=== PATIENT | female | born 1955 | race Caucasian/White ===

== ENCOUNTER → 2016-06-03 | Outpatient (CLI) | payer MEDICARE ==
--- NOTE | 2016-06-03 17:27 | REP ---
Chest x-ray: Two views. History: Cough. Comparison chest x-ray September 28, 2011. Findings: The lungs are symmetrically aerated and clear. Pleural angles are sharp. Heart is not enlarged. The aorta is somewhat tortuous. Pulmonary vasculature is not increased. Impression: No active disease. Signed by Khris Osborn MD 06/03/2016 05:35 P
== END ==
LOC: M WUC 15:34
PROVIDERS: ATTEND Family Medicine
DX: R05 Cough (principal)

== ENCOUNTER → 2016-07-18 | Outpatient (CLI) | payer MEDICARE | LOC: M CARPUL 13:50 | PROVIDERS: ATTEND Nurse Practitioner Family | DX: R05 Cough (principal) ==

== ENCOUNTER → 2016-08-11 | Outpatient (CLI) | payer MEDICARE | LOC: M EKG 09:26 | PROVIDERS: ATTEND Nurse Practitioner Family | DX: R03.0 Elevated blood-pressure reading, without diagnosis of hypertension (principal) ==

== ENCOUNTER 2016-11-14 14:55 | Emergency (ER) | payer MEDICARE ==
[~2016-11-14] VITALS: Ht 157.5 cm; Wt 78.7 kg
[2016-11-14] MEDS ORDERED: MELO7.5T7 (15:06)
[2016-11-14] MEDS ORDERED: APAP/CODEINE (15:06)
[2016-11-14] MEDS ORDERED: CHLO125TA (15:06)
[2016-11-14] MEDS ORDERED: PARO20TA3 (15:06)
[2016-11-14] MEDS ORDERED: OMEP40CA2 (15:06)
[2016-11-14] MEDS ORDERED: CYCL10TA (15:06)
[2016-11-14] MEDS: NITROGLYCERIN 0.4 MG SUBL TABLET SL PRN ×2 (15:13→15:18)
[2016-11-14] MEDS ORDERED: TENECTEPLASE 50 MG KIT (TNKase)(J3101) IV ONE (15:15)
[2016-11-14] MEDS ORDERED: ONDANSETRON 4MG/2ML VIAL (J2405) IV ONE (15:15)
[2016-11-14] MEDS ORDERED: fentaNYL 100 MCG/2 ML INJECTION (J3010) IV PRN (15:15)
[2016-11-14] MEDS ORDERED: ASPIRIN 81 MG CHEW TABLET PO ONE ×2 (15:15)
[2016-11-14] MEDS ORDERED: HEPARIN SOD (PORCINE) 5000 UNITS/ML VIAL IV ONE (15:15)
[2016-11-14] MEDS ORDERED: NS 500 ML IV ONE (15:15)
[2016-11-14 15:18] VITALS: BP 146/99
[2016-11-14 15:31] LABS: BASO % 0.4 % (0.0-1.0); EOS # 0.1 K/mm3 (0.0-0.50); EOS % 0.8 % (0.0-3.0); LARGE UNSTAINED CELL # 0.1 K/mm3 (0.0-0.4); LARGE UNSTAINED CELL % 0.7 % (0.0-4.0); LYMPH # 2.3 K/mm3 (1.5-4.5); LYMPH % 16.5 % (24.0-44.0); MEAN CORPUSCULAR HGB CONC 34.9 g/dl (32.0-36.5); MEAN CORPUSCULAR VOLUME 88.8 fl (80.0-96.0); MONO # 0.4 K/mm3 (0.0-0.8); MONO % 3.2 % (0.0-5.0); NEUTROPHILS # 10.5 K/mm3 (1.8-7.7); NEUTROPHILS % 78.4 % (36.0-66.0); PLATELET COUNT, AUTOMATED 466 k/mm3 (150-450); RED CELL DISTRIBUTION WIDTH 13.5 % (11.5-14.5); WHITE BLOOD COUNT 13.3 K/mm3 (4.0-10.0)
[2016-11-14] MEDS ORDERED: NITROGLYCERIN IN D5W 25MG/250ML (100MCG/ML) As Ordered ONE (15:32)
[2016-11-14] MEDS ORDERED: NITROGLYCERIN/D5W 100MCG/ML 25 MG in APPROPRIATE DILUENT 1 EA IV SCH (15:32)
[2016-11-14 15:45] LABS: INR 0.92
--- NOTE | 2016-11-14 15:46 | REP ---
Portable chest, single AP view, patient sitting: Comparison 06/03/2016. The lung hernandez are clear. The cardiac size is normal. The emelyn, mediastinum, and bony thorax are unremarkable. Impression: Negative portable chest. Signed by Franklin Fuller MD 11/14/2016 03:37 P
[2016-11-14 15:47] LABS: ALBUMIN 3.7 GM/DL (3.2-5.2); ALKALINE PHOSPHATASE 137 U/L (45-117); ALT/SGPT 20 U/L (12-78); ANION GAP 6 MEQ/L (8-16); AST/SGOT 12 U/L (15-37); BILIRUBIN,DIRECT 0.1 MG/DL (0.0-0.2); BILIRUBIN,TOTAL 0.4 MG/DL (0.2-1.0); BLOOD UREA NITROGEN 22 MG/DL (7-18); CARBON DIOXIDE LEVEL 30 MEQ/L (21-32); CHLORIDE LEVEL 101 MEQ/L (98-107); CREATININE FOR GFR 0.83 MG/DL (0.55-1.02); FREE T4 1.34 NG/DL (0.76-1.46); GLOMERULAR FILTRATION RATE > 60.0 (>45); GLUCOSE, FASTING 129 MG/DL (80-110); POTASSIUM SERUM 3.3 MEQ/L (3.5-5.1); SODIUM LEVEL 137 MEQ/L (136-145); TOTAL PROTEIN 7.8 GM/DL (6.4-8.2)
[2016-11-14] MEDS ORDERED: fentaNYL 100 MCG/2 ML INJECTION (J3010) IV ONE ×4 (15:50→16:00)
[2016-11-14 15:56] VITALS: BP 135/85
[2016-11-14] MEDS ORDERED: HEPARIN DRIP 25,000 UNITS in APPROPRIATE DILUENT 1 EA IV SCH (16:00)
[2016-11-14] MEDS ORDERED: CLOPIDOGREL 300 MG TAB (PLAVIX) PO STA (16:11)
--- NOTE | 2016-11-14 18:00 | ECGEPIP ---
Stationary ECG Study [facility] - ED Test Date: 2016-11-14 Pat Name: DAISY ANTONIO Department: Room: - Gender: F Switch Technician: balaji : 1955 Requested By: ANDREW Sanabria Order Number: [id number] Reading MD: Leyda Martinez Measurements Intervals [place] Rate: 89 P: 63 W[place]: 148 QRS: -21 QRSD: 86 T: 57 QT: 371 QTc: 453 Interpretive Statements SINUS RHYTHM BORDERLINE LEFT AXIS DEVIATION ST DEPRESSION IN v1-3 - ACUTE POSTERIOR INFARCTION CLINICAL CORRELATION ADVISED NO OLD ECG FOR COMPARISON Electronically Signed On 11-14-2016 18:00:01 EDT by Leyda Martinez
== END 2016-11-14 16:11 | disposition short-term general hospital (02) ==
LOC: M ED 16:06
DX: I21.3 ST elevation (STEMI) myocardial infarction of unspecified site (principal); I10 Essential (primary) hypertension; M19.90 Unspecified osteoarthritis, unspecified site; F17.200 Nicotine dependence, unspecified, uncomplicated; Z82.49 Family history of ischemic heart disease and other diseases of the circulatory system; Z79.899 Other long term (current) drug therapy
CPT/HCPCS: 71010; 80048; 80076; 82550; 82553; 83880; 84439; 84443; 84484; 85025; 85610; 85730; 93005; 93041; 94760; 96374; 96375; 96376; 99285; J2405; J3010; J3101

== ENCOUNTER 2016-11-21 11:33 | Emergency (ER) | payer MEDICARE ==
[~2016-11-21] VITALS: Ht 157.5 cm; Wt 78.2 kg
[~2016-11-21 11:33] MED LIST: APAP/CODEINE; CHLO125TA; CYCL10TA; MELO7.5T7; OMEP40CA2; PARO20TA3
[2016-11-21] MEDS ORDERED: METO-346 (11:46)
[2016-11-21] MEDS ORDERED: ATOR40TA75 (11:46)
[2016-11-21] MEDS ORDERED: ASPI81CH (11:46)
[2016-11-21] MEDS ORDERED: PLAV1TAB2 PO (11:46)
[2016-11-21] MEDS ORDERED: NITR0.4S14 (11:46)
[2016-11-21] MEDS ORDERED: LISI2.5T3 (11:46)
[2016-11-21] MEDS ORDERED: MORPHINE 2 MG/ML 1ML SYRINGE IV ONE (12:45)
[2016-11-21] MEDS ORDERED: ONDANSETRON 4MG/2ML VIAL (J2405) IV ONE (12:45)
--- NOTE | 2016-11-21 13:22 | REP ---
CT brain without contrast: History: Headache. On anticoagulation. Recent cardiac catheterization. Comparison study: November 10, 2014. CT findings: Digital lateral head doffer radiograph is unremarkable. No bony calvarial abnormality is appreciated. The visualized paranasal sinuses are clear. Soft tissue window settings demonstrate a triangular hyperdensity consistent with an acute parenchymal hemorrhage 2.6 cm in greatest diameter in the left periventricular white matter of the frontoparietal region. There is some mild surrounding edema. The findings are compatible with small hemorrhagic infarct versus hypertensive hemorrhage. It is a new finding when compared with the prior CT study of November 10, 2014. There is a small zone of intraventricular hemorrhage within the occipital horn of the left lateral ventricle. The lateral ventricles are a little more prominent than they were in October of 2014. Exam is otherwise unremarkable. Impression: Acute parenchymal hemorrhage periventricular white matter left frontal parietal lobe with a small quantity of intraventricular hemorrhage and mild lateral ventricle dilation. Hemorrhagic infarct versus hypertensive hemorrhage. Findings were discussed verbally by telephone with the referring provider Dr. Shabazz, at the time of the study. Signed by Khris Osborn MD 11/21/2016 04:16 P
[2016-11-21 13:23] LABS: BASO % 0.2 % (0.0-1.0); EOS # 0.1 K/mm3 (0.0-0.50); EOS % 0.9 % (0.0-3.0); LARGE UNSTAINED CELL # 0.1 K/mm3 (0.0-0.4); LARGE UNSTAINED CELL % 0.5 % (0.0-4.0); LYMPH # 1.3 K/mm3 (1.5-4.5); MEAN CORPUSCULAR HEMOGLOBIN 29.9 pg (27.0-33.0); MEAN CORPUSCULAR VOLUME 90.7 fl (80.0-96.0); MONO # 0.3 K/mm3 (0.0-0.8); MONO % 2.1 % (0.0-5.0); NEUTROPHILS # 13.3 K/mm3 (1.8-7.7); NEUTROPHILS % 88.4 % (36.0-66.0); PLATELET COUNT, AUTOMATED 502 k/mm3 (150-450); RED CELL DISTRIBUTION WIDTH 13.7 % (11.5-14.5); WHITE BLOOD COUNT 15.1 K/mm3 (4.0-10.0)
[2016-11-21 13:27] LABS: INR 0.91
[2016-11-21 13:44] LABS: ALBUMIN 3.2 GM/DL (3.2-5.2); ALBUMIN/GLOBULIN RATIO 0.71 (1.00-1.93); ALKALINE PHOSPHATASE 127 U/L (45-117); ALT/SGPT 23 U/L (12-78); ANION GAP 6 MEQ/L (8-16); AST/SGOT 11 U/L (15-37); BILIRUBIN,DIRECT 0.1 MG/DL (0.0-0.2); BILIRUBIN,TOTAL 0.5 MG/DL (0.2-1.0); BLOOD UREA NITROGEN 18 MG/DL (7-18); CALCIUM LEVEL 8.9 MG/DL (8.8-10.2); CARBON DIOXIDE LEVEL 26 MEQ/L (21-32); CHLORIDE LEVEL 107 MEQ/L (98-107); CREATININE FOR GFR 0.61 MG/DL (0.55-1.02); GLOMERULAR FILTRATION RATE > 60.0 (>45); GLUCOSE, FASTING 123 MG/DL (80-110); POTASSIUM SERUM 3.7 MEQ/L (3.5-5.1); SODIUM LEVEL 139 MEQ/L (136-145); TOTAL PROTEIN 7.7 GM/DL (6.4-8.2)
[2016-11-21 13:50] VITALS: BP 158/83
[2016-11-21] MEDS ORDERED: NS 1,000 ML IV SCH (14:00)
== END 2016-11-21 13:56 | disposition short-term general hospital (02) ==
LOC: M ED 12:41
DX: I62.9 Nontraumatic intracranial hemorrhage, unspecified (principal); Z79.02 Long term (current) use of antithrombotics/antiplatelets; I25.10 Atherosclerotic heart disease of native coronary artery without angina pectoris; I25.2 Old myocardial infarction; I10 Essential (primary) hypertension; E78.5 Hyperlipidemia, unspecified; Z98.61 Coronary angioplasty status; Z79.82 Long term (current) use of aspirin; Z79.899 Other long term (current) drug therapy
CPT/HCPCS: 70450; 80048; 80076; 82550; 83690; 85025; 85610; 85730; 96374; 96375; 99284; J2405

== ENCOUNTER → 2017-07-30 | Outpatient (CLI) | payer MEDICARE ==
[2017-07-30 14:03] LABS: BASO # 0.1 10^3/uL (0.0-0.2); BASO % 0.5 % (0.0-1.0); EOS # 0.2 10^3/uL (0.0-0.50); EOS % 1.4 % (0.0-3.0); HEMATOCRIT 48.3 % (36.0-47.0); HEMOGLOBIN 15.8 g/dl (12.0-16.0); IMMATURE GRANULOCYTE % 0.4 % (0-3.0); LYMPH # 2.8 10^3/uL (1.5-4.5); LYMPH % 25.2 % (24.0-44.0); MEAN CORPUSCULAR HEMOGLOBIN 29.6 pg (27.0-33.0); MEAN CORPUSCULAR HGB CONC 32.7 g/dl (32.0-36.5); MEAN CORPUSCULAR VOLUME 90.4 fl (80.0-96.0); MONO # 0.5 10^3/uL (0.0-0.8); MONO % 4.5 % (0.0-5.0); NEUTROPHILS # 7.5 10^3/uL (1.8-7.7); PLATELET COUNT, AUTOMATED 537 10^3/uL (150-450); RED BLOOD COUNT 5.34 10^6/uL (4.00-5.40); RED CELL DISTRIBUTION WIDTH 13.6 % (11.5-14.5); WHITE BLOOD COUNT 11.1 10^3/uL (4.0-10.0)
[2017-07-30 14:25] LABS: ALBUMIN 3.6 GM/DL (3.2-5.2); ALBUMIN/GLOBULIN RATIO 1.06 (1.00-1.93); ALKALINE PHOSPHATASE 135 U/L (45-117); ALT/SGPT 16 U/L (12-78); ANION GAP 6 MEQ/L (8-16); AST/SGOT 9 U/L (7-37); BILIRUBIN,TOTAL 0.4 MG/DL (0.2-1.0); BLOOD UREA NITROGEN 14 MG/DL (7-18); CALCIUM LEVEL 8.8 MG/DL (8.8-10.2); CARBON DIOXIDE LEVEL 27 MEQ/L (21-32); CHLORIDE LEVEL 110 MEQ/L (98-107); CHOLESTEROL LEVEL 156 MG/DL (<200); CHOLESTEROL RISK RATIO 2.836 (<5); CREATININE FOR GFR 0.71 MG/DL (0.55-1.30); FREE THYROXINE INDEX 3.5 % (1.3-4.8); GLOMERULAR FILTRATION RATE > 60.0 (>45); GLUCOSE, FASTING 108 MG/DL (70-100); HDL CHOLESTEROL 55 MG/DL (>40); LDL CHOLESTEROL 86.4 MG/DL (<100); NON-HDL-C 101 MG/DL; POTASSIUM SERUM 4.8 MEQ/L (3.5-5.1); SODIUM LEVEL 143 MEQ/L (136-145); T UPTAKE 27 % (30-39); THYROID STIMULATING HORMONE 0.812 uIU/ML (0.358-3.740); THYROXINE (T4) 13.1 UG/DL (4.5-12.0); TRIGLYCERIDES LEVEL 73 MG/DL (<150)
[2017-07-30 15:02] LABS: ESTIMATED AVERAGE GLUCOSE 123 MG/DL (60-110); HEMOGLOBIN A1c 5.9 %
== END ==
LOC: M SMT 08:23
DX: E11.9 Type 2 diabetes mellitus without complications (principal); E78.5 Hyperlipidemia, unspecified; E06.9 Thyroiditis, unspecified; I25.10 Atherosclerotic heart disease of native coronary artery without angina pectoris
CPT/HCPCS: 84443

== ENCOUNTER → 2017-07-30 | Outpatient (CLI) | payer MEDICARE ==
[2017-07-30 14:36] LABS: ALBUMIN 3.4 GM/DL (3.2-5.2); ALBUMIN/GLOBULIN RATIO 0.97 (1.00-1.93); ALKALINE PHOSPHATASE 139 U/L (45-117); ALT/SGPT 15 U/L (12-78); ANION GAP 8 MEQ/L (8-16); AST/SGOT 8 U/L (7-37); BILIRUBIN,TOTAL 0.4 MG/DL (0.2-1.0); BLOOD UREA NITROGEN 15 MG/DL (7-18); CARBON DIOXIDE LEVEL 27 MEQ/L (21-32); CHLORIDE LEVEL 108 MEQ/L (98-107); CHOLESTEROL LEVEL 156 MG/DL (<200); CHOLESTEROL RISK RATIO 2.785 (<5); CREATININE FOR GFR 0.73 MG/DL (0.55-1.30); GLOMERULAR FILTRATION RATE > 60.0 (>45); GLUCOSE, FASTING 105 MG/DL (70-100); HDL CHOLESTEROL 56 MG/DL (>40); LDL CHOLESTEROL 85.2 MG/DL (<100); NON-HDL-C 100 MG/DL; POTASSIUM SERUM 4.7 MEQ/L (3.5-5.1); SODIUM LEVEL 143 MEQ/L (136-145); TOTAL PROTEIN 6.9 GM/DL (6.4-8.2); TRIGLYCERIDES LEVEL 74 MG/DL (<150)
== END ==
LOC: M SMT 08:17
DX: I25.10 Atherosclerotic heart disease of native coronary artery without angina pectoris (principal)

== ENCOUNTER → 2017-08-28 | Outpatient (REF) | payer MEDICARE ==
[2017-08-28 17:26] LABS: HEMOGLOBIN 14.9 g/dl (12.0-15.5); WHITE BLOOD COUNT 10.9 10^3/uL (4.0-10.0)
[2017-08-28 17:27] LABS: BASO # 0.1 10^3/uL (0.0-0.2); BASO % 0.5 % (0.0-1.0); EOS # 0.1 10^3/uL (0.0-0.50); EOS % 1.3 % (0.0-3.0); HEMATOCRIT 46.1 % (36.0-47.0); IMMATURE GRANULOCYTE % 0.4 % (0-3.0); LYMPH % 27.8 % (24.0-44.0); MEAN CORPUSCULAR HEMOGLOBIN 29.2 pg (27.0-33.0); MEAN CORPUSCULAR HGB CONC 32.3 g/dl (32.0-36.5); MEAN CORPUSCULAR VOLUME 90.4 fl (80.0-96.0); MONO # 0.5 10^3/uL (0.0-0.8); MONO % 4.9 % (0.0-5.0); NEUTROPHILS # 7.1 10^3/uL (1.8-7.7); NEUTROPHILS % 65.1 % (36.0-66.0); PLATELET COUNT, AUTOMATED 542 10^3/uL (150-450); RED CELL DISTRIBUTION WIDTH 13.5 % (11.5-14.5)
[2017-08-28 17:48] LABS: ERYTHROCYTE SEDIMENTATION RATE 8 mm/hr (0-30)
[2017-08-28 17:53] LABS: RHEUMATOID FACTOR QUANT < 10.0 IU/ML (<15.0)
[2017-09-03 14:11] LABS: ANTI THROMBIN 3 ANTIGEN IMMUNO 89 % (72-124); ANTI THROMBIN 3 FUNCT ACTIVITY 114 % (75-135)
[2017-09-04 10:06] LABS: DRVV SCREEN 30.7 SEC
[2017-09-04 10:07] LABS: PTT LUPUS TYPE ANTICOAG SCREEN 0.7 (0-1.2)
[2017-09-05 00:08] LABS: ANTI-HISTONE ANTIBODIES 0.6 Units (0.0-0.9)
[2017-09-05 00:08] LABS: ANTI DOUBLE STRAND-DNA AB 2 IU/mL (0-9); ANTINUCLEAR ANTIBODIES DIRECT Negative (Negative); CARDIOLIPIN IGA ANTIBODY <9 APL U/mL (0-11); CARDIOLIPIN IGG ANTIBODY <9 GPL U/mL (0-14); CARDIOLIPIN IGM ANTIBODY 9 MPL U/mL (0-12); PROTEIN C FUNCTIONAL ACTIVITY 133 % (73-180); PROTEIN S FUNCTIONAL ACTIVITY 94 % (63-140); RNP ANTIBODIES <0.2 AI (0.0-0.9); SJOGREN'S ANTI SS-A <0.2 AI (0.0-0.9); SJOGREN'S ANTI SS-B <0.2 AI (0.0-0.9); SMITH ANTIBODIES <0.2 AI (0.0-0.9)
== END ==
LOC: M LABDRAW1 15:24
DX: I63.9 Cerebral infarction, unspecified (principal); R79.9 Abnormal finding of blood chemistry, unspecified; Z79.899 Other long term (current) drug therapy
CPT/HCPCS: 86255

== ENCOUNTER → 2018-04-17 | Outpatient (CLI) | payer MEDICARE ==
[2018-04-17 13:23] LABS: ALBUMIN 3.4 GM/DL (3.2-5.2); ALKALINE PHOSPHATASE 158 U/L (45-117); ALT/SGPT 21 U/L (12-78); ANION GAP 3 MEQ/L (8-16); AST/SGOT 12 U/L (7-37); BILIRUBIN,TOTAL 0.3 MG/DL (0.2-1.0); BLOOD UREA NITROGEN 13 MG/DL (7-18); CALCIUM LEVEL 8.9 MG/DL (8.8-10.2); CARBON DIOXIDE LEVEL 32 MEQ/L (21-32); CHLORIDE LEVEL 106 MEQ/L (98-107); CHOLESTEROL LEVEL 213 MG/DL (<200); CHOLESTEROL RISK RATIO 4.096 (<5); CREATININE FOR GFR 0.76 MG/DL (0.55-1.30); GLOMERULAR FILTRATION RATE > 60.0 (>45); GLUCOSE, FASTING 98 MG/DL (70-100); HDL CHOLESTEROL 52 MG/DL (>40); LDL CHOLESTEROL 136 MG/DL (<100); NON-HDL-C 161 MG/DL; POTASSIUM SERUM 5.3 MEQ/L (3.5-5.1); SODIUM LEVEL 141 MEQ/L (136-145); TOTAL PROTEIN 6.8 GM/DL (6.4-8.2); TRIGLYCERIDES LEVEL 125 MG/DL (<150); URIC ACID 4.4 MG/DL (2.6-6.0)
[2018-04-17 14:11] LABS: MALB URINE SIEMENS 34.3 MG/L; MAU/CREAT RATIO 23.9 MCG/MG (0.0-30.0)
== END ==
LOC: M SMT 09:45
DX: I25.10 Atherosclerotic heart disease of native coronary artery without angina pectoris (principal); I10 Essential (primary) hypertension; Z86.73 Personal history of transient ischemic attack (TIA), and cerebral infarction without residual deficits
CPT/HCPCS: 84550

== ENCOUNTER → 2018-06-07 | Outpatient (CLI) | payer MEDICARE ==
[~2018-06-07] MED LIST changes: +ASPI81CH; +ATOR40TA75; +LISI2.5T5; +METO-346; +NITR0.4S14; +PLAV1TAB2 PO
--- NOTE | 2018-06-11 11:11 | DEXA ---
AP SPINE L1 - L4 0.798 -3.2 -1.6 LT FEMUR TOTAL 0.777 -1.8 -0.6 LT NECK 0.673 -2.6 -1.2 RT FEMUR TOTAL 0.768 -1.9 -0.7 RT NECK 0.650 -2.8 -1.3 TOTAL BODY TOTAL OTHER COMMENTS: There is osteoporosis of the spine and hips. The density of the spine has decreased 11.0% since the initial exam on 06/12/2001. The spine density has decreased 4.5% since the most recent exam on 05/18/2016. The density of the left hip has increased 3.5% since the initial exam on 06/12/2001. The density of the left hip has decreased 1.4% since the most recent exam on 05/18/2016. The density of the right hip has increased 0.1% since the initial exam on 06/12/2001. The density of the right hip has increased 5.5% since the most recent exam on 05/18/2016. FOLLOW-UP: Recommendation for the next bone density exam: 2 years. TALIB
== END ==
LOC: M WHC 12:41
PROVIDERS: ATTEND Family Medicine
DX: M81.0 Age-related osteoporosis without current pathological fracture (principal)

== ENCOUNTER → 2018-06-21 | Outpatient (CLI) | payer MEDICARE ==
--- NOTE | 2018-06-21 12:25 | REP ---
LOW-DOSE LUNG CANCER SCREENING CT STUDY OF THE CHEST WITHOUT CONTRAST: HISTORY: Tobacco use. Comparison is made with lung base cuts obtained as part of an abdominal CT study dated July 30, 2013. No other comparison studies. Dose reduction was performed utilizing CARE dose with automated adjustment of the kV and MAS according to patient size; iterative reconstruction, automated exposure control, as well as adaptive dose shielding. FINDINGS: There is a stable 4 mm nodular opacity in the right posterior lung gutter in the right lower lobe. This is visible on page 76 of 94 in series 201 of today's exam. It is unchanged from the July 30, 2013 study and is felt to be benign. There is a tiny 1 mm granulomatous calcification in the left lower lobe on page 44 of 94 in today's study. Lastly, there is a non-solid 5 mm ground-glass opacity nodule in the right upper lobe posteriorly on page 23 of 94 of today's study. IMPRESSION: Lung RADS category 2 benign appearance. Repeat screening study recommended 1 year. Electronically Signed by Khris Osborn MD 06/21/2018 04:40 P
== END ==
LOC: M RAD 10:35
PROVIDERS: ATTEND Family Medicine
DX: Z12.2 Encounter for screening for malignant neoplasm of respiratory organs (principal); R91.8 Other nonspecific abnormal finding of lung field; F17.210 Nicotine dependence, cigarettes, uncomplicated

== ENCOUNTER → 2018-07-16 | Outpatient (REF) | payer MEDICARE | LOC: M SFHCPLAZ 17:09 | PROVIDERS: ATTEND Obstetrics & Gynecology | DX: N30.00 Acute cystitis without hematuria (principal) | CPT/HCPCS: 81002; 87088; 87186; G0463 ==

== ENCOUNTER → 2018-08-05 | Outpatient (REF) | payer MEDICARE | LOC: M LAB REF 15:33 | PROVIDERS: ATTEND Nurse Practitioner Family | DX: L08.9 Local infection of the skin and subcutaneous tissue, unspecified (principal) ==

== ENCOUNTER 2018-10-29 13:15 | Emergency (ER) | payer MEDICARE ==
[~2018-10-29] VITALS: Ht 157.5 cm; Wt 78.3 kg
[~2018-10-29 13:15] MED LIST changes: -ASPI81CH; +ASPI81CH49; +LISI-1046; -LISI2.5T5
[2018-10-29] MEDS ORDERED: GABA-843 (15:08)
[2018-10-29] MEDS ORDERED: PRED20TA (15:08)
[2018-10-29] MEDS ORDERED: KETOROLAC 30 MG/ML VIAL (J1885) IM ONE (15:15)
--- NOTE | 2018-10-29 15:51 | REP ---
Lumbar spine five views History: Rule out fracture Comparison: 11/03/2014 There is a compression fracture of the L2 vertebral body with minimal height loss. There is no subluxation. The lumbar intervertebral discs are decreased in height consistent with disc degeneration. Osteophytes are present on L3-L5. There is narrowing of the right L4 and L4-5 and left L5-L1 facet joints. Impression: 1. There is a compression fracture of the L2 vertebral body with minimal height loss. The age is indeterminate. 2. Degenerative change as described above. Electronically Signed by John Simmons MD 10/29/2018 03:42 P
[2018-10-29] MEDS ORDERED: NORC1TAB7 PO (16:09)
[2018-10-29 16:18] VITALS: BP 141/83
== END 2018-10-29 16:25 | disposition home or self-care (01) ==
LOC: M ED 13:15
DX: S32.020A Wedge compression fracture of second lumbar vertebra, initial encounter for closed fracture (principal); S39.012A Strain of muscle, fascia and tendon of lower back, initial encounter; M51.36 Other intervertebral disc degeneration, lumbar region; X58.XXXA Exposure to other specified factors, initial encounter; Y92.89 Other specified places as the place of occurrence of the external cause; I10 Essential (primary) hypertension; K21.9 Gastro-esophageal reflux disease without esophagitis; F17.200 Nicotine dependence, unspecified, uncomplicated; Z79.899 Other long term (current) drug therapy; Z79.82 Long term (current) use of aspirin; Z79.52 Long term (current) use of systemic steroids
CPT/HCPCS: 72110; 96372; 99283; J1885

== ENCOUNTER → 2019-04-22 | Outpatient (CLI) | payer MEDICARE ==
[~2019-04-22] MED LIST changes: +GABA-843; +NORC1TAB7 PO; -OMEP40CA2; +OMEP40CA97; +PRED20TA
[2019-04-22 15:20] LABS: ALBUMIN 3.6 GM/DL (3.2-5.2); ALT/SGPT 18 U/L (12-78); BILIRUBIN,TOTAL 0.4 MG/DL (0.2-1.0); BLOOD UREA NITROGEN 15 MG/DL (7-18); CALCIUM LEVEL 9.1 MG/DL (8.8-10.2); CARBON DIOXIDE LEVEL 30 MEQ/L (21-32); CHLORIDE LEVEL 108 MEQ/L (98-107); CHOLESTEROL LEVEL 226 MG/DL (<200); CHOLESTEROL RISK RATIO 3.766 (<5); CREATININE FOR GFR 0.81 MG/DL (0.55-1.30); GLOMERULAR FILTRATION RATE > 60.0 (>45); GLUCOSE, FASTING 104 MG/DL (70-100); HDL CHOLESTEROL 60 MG/DL (>40); LDL CHOLESTEROL 148 MG/DL (<100); NON-HDL-C 166 MG/DL; POTASSIUM SERUM 5.3 MEQ/L (3.5-5.1); SODIUM LEVEL 142 MEQ/L (136-145); TOTAL PROTEIN 7.2 GM/DL (6.4-8.2); TRIGLYCERIDES LEVEL 90 MG/DL (<150)
[2019-04-22 15:26] LABS: TOTAL 25(OH) VITAMIN D 8.7 NG/ML (30.0-100.0)
== END ==
LOC: M PLALAB 09:02
PROVIDERS: ATTEND Family Medicine
DX: M80.88XD Other osteoporosis with current pathological fracture, vertebra(e), subsequent encounter for fracture with routine healing (principal); M81.0 Age-related osteoporosis without current pathological fracture; I25.10 Atherosclerotic heart disease of native coronary artery without angina pectoris; I10 Essential (primary) hypertension; E55.9 Vitamin D deficiency, unspecified

== ENCOUNTER → 2019-06-05 | Outpatient (CLI) | payer MEDICARE ==
[2019-06-05 17:35] LABS: ALBUMIN 3.5 GM/DL (3.2-5.2); BLOOD UREA NITROGEN 15 MG/DL (7-18); CALCIUM LEVEL 8.8 MG/DL (8.8-10.2); CARBON DIOXIDE LEVEL 27 MEQ/L (21-32); CHLORIDE LEVEL 106 MEQ/L (98-107); CREATININE FOR GFR 0.76 MG/DL (0.55-1.30); GLOMERULAR FILTRATION RATE > 60.0 (>45); GLUCOSE, FASTING 99 MG/DL (70-100); MAGNESIUM LEVEL 2.2 MG/DL (1.8-2.4); PHOSPHORUS LEVEL 4.2 MG/DL (2.5-4.9); POTASSIUM SERUM 4.6 MEQ/L (3.5-5.1); SODIUM LEVEL 141 MEQ/L (136-145)
[2019-06-05 17:47] LABS: TOTAL 25(OH) VITAMIN D 30.2 NG/ML (30.0-100.0)
[2019-06-05 18:04] LABS: HEMOGLOBIN A1c 6.2 %
== END ==
LOC: M PLALAB 13:08
PROVIDERS: ATTEND Family Medicine
DX: R73.02 Impaired glucose tolerance (oral) (principal); M81.0 Age-related osteoporosis without current pathological fracture; R79.89 Other specified abnormal findings of blood chemistry; E87.5 Hyperkalemia

== ENCOUNTER → 2019-07-03 | Outpatient (CLI) | payer MEDICARE ==
--- NOTE | 2019-07-03 09:21 | REP ---
BILATERAL SCREENING DIGITAL MAMMOGRAM WITH 3D TOMOSYNTHESIS: There are no palpable abnormalities or other breast complaints. The the patient states she has not had a clinical breast examination in over a year. The the patient states she performs self-breast examinations 12 times per year. The Tyrer-zick Lifetime Breast Cancer Risk Score is: 9.7% . Comparison is 05/08/2013. There are scattered areas of fibroglandular density. There is no dominant mass, micro calcific cluster or architectural distortion that would indicate malignancy. There are no additional findings on 3D tomosynthesiss. There is no change from the prior study. Impression: BIRADS/ACR category 1 mammogram. Negative. Recommendation: Routine annual screening mammography. This mammogram was interpreted with the aid of a FDA approved computer-aided detection system. A. Negative mammogram reports should not delay biopsy if a dominant or clinically suspicious mass is present. B. Not all breast cancers are identified by mammography or tomosynthesis. C. Adenosis and dense breasts may obscure an underlying neoplasm. Patient letter M1. Electronically Signed by Franklin Fuller MD 07/03/2019 09:13 A
== END ==
LOC: M WHC 08:09
PROVIDERS: ATTEND Family Medicine
DX: Z12.31 Encounter for screening mammogram for malignant neoplasm of breast (principal)

== ENCOUNTER → 2019-09-05 | Outpatient (REF) | payer MEDICARE ==
[2019-09-05 17:48] LABS: HEMOGLOBIN A1c 6.3 %
== END ==
LOC: M SFHCPLAZ 13:49
DX: R73.03 Prediabetes (principal); M81.0 Age-related osteoporosis without current pathological fracture

== ENCOUNTER → 2019-11-07 | Outpatient (CLI) | payer MEDICARE ==
[~2019-11-07] MED LIST changes: +CYCL-707; -CYCL10TA; -LISI-1046; +LISI2.5T2
--- NOTE | 2019-11-07 14:44 | REP ---
REASON FOR EXAM: Tobacco abuse. COMPARISON: Multiple, the latest 06/21/2018. As per the protocol, only lung window images were sent to the read station for interpretation. There is a stable 4-mm sized nodule in the right lower lobe. Three new nodular densities have developed in the posterior segment of the right upper lobe. The largest of these measures approximately 6 mm. Grossly, the mediastinum and pulmonary emelyn are unchanged. Grossly, the imaged upper abdomen and imaged osseous structures are unchanged. There is no evidence of pleural or pericardial effusions. IMPRESSION: Three new nodular densities in the right lung, as described above. According to the revised Fleischner Society criteria, the finding represents category 3 exam for which 6-month followup examination is recommend. Electronically Signed by Harpal Clancy DO 11/07/2019 03:07 P
== END ==
LOC: M RAD 13:19
PROVIDERS: ATTEND Family Medicine
DX: Z12.2 Encounter for screening for malignant neoplasm of respiratory organs (principal); Z87.891 Personal history of nicotine dependence

== ENCOUNTER → 2020-04-13 | Outpatient (REF) | payer MEDICARE ==
[2020-04-13 17:04] LABS: INFLUENZA A AMPLIFICATION NEGATIVE (NEGATIVE); INFLUENZA B AMPLIFICATION NEGATIVE (NEGATIVE)
[2020-04-13 18:03] LABS: APPEARANCE, URINE HAZY (CLEAR); BACTERIA, URINE AUTO 1+ (NEGATIVE); BILIRUBIN, URINE AUTO NEGATIVE (NEGATIVE); BLOOD, URINE BLOOD NEGATIVE (NEGATIVE); COLOR, URINE YELLOW (YELLOW); GLUCOSE, URINE (UA) AUTO NEGATIVE (NEGATIVE); KETONE, URINE AUTO NEGATIVE (NEGATIVE); LEUKOCYTE ESTERASE, URINE AUTO TRACE (NEGATIVE); MUCUS, URINE SMALL (NEGATIVE); NITRITE, URINE AUTO NEGATIVE (NEGATIVE); PROTEIN, URINE AUTO NEGATIVE (NEGATIVE); RBC, URINE AUTO 0 /HPF (0-3); SPECIFIC GRAVITY URINE AUTO 1.012 (1.002-1.035); SQUAMOUS EPITHELIAL CELL UR AU 0 /HPF (0-6); UROBILINOGEN, URINE AUTO 0.2 mg/dL (0.0-2.0); WBC, URINE AUTO 7 /HPF (0-3)
== END ==
LOC: M LAB REF 16:13
PROVIDERS: ATTEND Physician Assistant Medical
DX: N39.0 Urinary tract infection, site not specified (principal); Z20.828 Contact with and (suspected) exposure to other viral communicable diseases

== ENCOUNTER → 2020-04-20 | Outpatient (REF) | payer MEDICARE ==
[2020-04-20 13:21] LABS: BASO # 0.1 10^3/uL (0.0-0.2); BASO % 0.7 % (0.0-1.0); EOS # 0.1 10^3/uL (0.0-0.5); EOS % 0.8 % (0.0-3.0); HEMATOCRIT 46.6 % (36.0-47.0); LYMPH # 3.1 10^3/uL (1.5-5.0); LYMPH % 22.1 % (24.0-44.0); MEAN CORPUSCULAR HEMOGLOBIN 30.1 pg (27.0-33.0); MEAN CORPUSCULAR HGB CONC 32.2 g/dl (32.0-36.5); MEAN CORPUSCULAR VOLUME 93.6 fl (80.0-96.0); MONO # 0.9 10^3/uL (0.0-0.8); MONO % 6.4 % (0.0-5.0); NEUTROPHILS # 9.3 10^3/uL (1.5-8.5); NEUTROPHILS % 67.3 % (36.0-66.0); PLATELET COUNT, AUTOMATED 543 10^3/uL (150-450); RED BLOOD COUNT 4.98 10^6/uL (4.00-5.40); WHITE BLOOD COUNT 13.9 10^3/uL (4.0-10.0)
[2020-04-20 13:51] LABS: ALBUMIN 2.7 GM/DL (3.2-5.2); ALT/SGPT 42 U/L (12-78); BILIRUBIN,TOTAL 1.1 MG/DL (0.2-1.0); BLOOD UREA NITROGEN 13 MG/DL (7-18); CALCIUM LEVEL 9.6 MG/DL (8.8-10.2); CARBON DIOXIDE LEVEL 28 MEQ/L (21-32); CHLORIDE LEVEL 102 MEQ/L (98-107); CREATININE FOR GFR 0.71 MG/DL (0.55-1.30); GLOMERULAR FILTRATION RATE > 60.0 (>45); GLUCOSE, FASTING 87 MG/DL (70-100); SODIUM LEVEL 137 MEQ/L (136-145); TOTAL PROTEIN 6.8 GM/DL (6.4-8.2)
== END ==
LOC: M SFHCPLAZ 11:14
PROVIDERS: ATTEND Physician Assistant
DX: R05 Cough (principal); R50.9 Fever, unspecified

== ENCOUNTER → 2020-04-20 | Outpatient (REF) | payer MEDICARE | LOC: M LAB REF 16:59 | PROVIDERS: ATTEND Physician Assistant | DX: J02.9 Acute pharyngitis, unspecified (principal) ==

== ENCOUNTER → 2020-04-20 | Outpatient (CLI) | payer MEDICARE ==
--- NOTE | 2020-04-20 12:31 | REPPI ---
INDICATION: R05 COUGH R50.9 FEVER AND CHILLS COMPARISON: 11/14/2016 TECHNIQUE: PA and lateral. FINDINGS: The mediastinum and cardiac silhouette are normal. The lung hernandez are clear and without acute consolidation, effusion, or pneumothorax. The skeletal structures are intact and normal. IMPRESSION: No acute cardiopulmonary process. <Electronically signed by Jayme Lambert > 04/20/20 0186
== END ==
LOC: M PLALAB 11:14
PROVIDERS: ATTEND Physician Assistant
DX: R05 Cough (principal); R50.9 Fever, unspecified

== ENCOUNTER → 2020-05-07 | Outpatient (CLI) | payer MEDICARE ==
[~2020-05-07] MED LIST changes: +ISOVUE-370 76% 100ML VIAL As Ordered ONE
[2020-05-07 17:30] LABS: HEMOGLOBIN A1c 5.8 %
[2020-05-07 18:05] LABS: ALBUMIN 3.5 GM/DL (3.2-5.2); ALT/SGPT 20 U/L (12-78); BILIRUBIN,TOTAL 0.4 MG/DL (0.2-1.0); BLOOD UREA NITROGEN 18 MG/DL (7-18); CALCIUM LEVEL 9.6 MG/DL (8.8-10.2); CARBON DIOXIDE LEVEL 30 MEQ/L (21-32); CHLORIDE LEVEL 104 MEQ/L (98-107); CHOLESTEROL LEVEL 248 MG/DL (<200); CHOLESTEROL RISK RATIO 3.875 (<5); CREATININE FOR GFR 0.69 MG/DL (0.55-1.30); GLOMERULAR FILTRATION RATE > 60.0 (>45); GLUCOSE, FASTING 81 MG/DL (70-100); HDL CHOLESTEROL 64 MG/DL (>40); LDL CHOLESTEROL 158 MG/DL (<100); NON-HDL-C 184 MG/DL; POTASSIUM SERUM 4.7 MEQ/L (3.5-5.1); SODIUM LEVEL 139 MEQ/L (136-145); TOTAL 25(OH) VITAMIN D 25.9 NG/ML (30.0-100.0); TOTAL PROTEIN 7.1 GM/DL (6.4-8.2); TRIGLYCERIDES LEVEL 129 MG/DL (<150)
--- NOTE | 2020-05-07 18:10 | REP ---
INDICATION: ABN FINDING ON CT. COMPARISON: 11/07/2019. 06/21/2018. TECHNIQUE: CT chest performed following the intravenous administration of 100 cc of Isovue 370. Sagittal and coronal reconstruction images are performed. FINDINGS: Lungs: There is a stable benign 4 mm nodular density in the right posterior costophrenic sulcus. The new nodular densities seen on the CT of 11/07/2019 are not seen on today's exam and were likely inflammatory. No other nodule is seen in either lung. Mediastinum: No adenopathy. Angelica: No adenopathy. Axilla: No adenopathy. Pleura: No effusion. Heart: Not enlarged. Thoracic aorta: No aneurysm or dissection. Upper abdominal structures: There is diffuse fatty infiltration of the liver. There is 1.5 cm nodule in the inferior spleen containing small calcifications which may represent a hemangioma. Visualized osseous structures: There are mild degenerative changes of the spine. There is a chronic mild compression deformity of L1. IMPRESSION: Stable benign 4 mm nodular density right posterior costophrenic sulcus. The 3 subcentimeter nodular densities in the right lower lobe seen on the CT of 11/07/2019 are not seen on today's exam and are likely inflammatory. The patient may resume low-dose lung screening CT yearly. <Electronically signed by Franklin Tripp > 05/07/20 2739
[2020-05-11 01:06] LABS: INSULIN LEVEL 10.4 uIU/mL (2.6-24.9)
== END ==
LOC: M RAD 16:08
PROVIDERS: ATTEND Family Medicine
DX: R91.8 Other nonspecific abnormal finding of lung field (principal); R93.89 Abnormal findings on diagnostic imaging of other specified body structures; R73.01 Impaired fasting glucose; I25.10 Atherosclerotic heart disease of native coronary artery without angina pectoris; I10 Essential (primary) hypertension; E55.9 Vitamin D deficiency, unspecified; G89.29 Other chronic pain; Z79.899 Other long term (current) drug therapy
CPT/HCPCS: 36415; 71260; 80053; 80061; 82306; 83036; 83525; Q9967

== ENCOUNTER 2020-06-12 11:22 | Inpatient (IN) | payer MEDICARE ==
[~2020-06-12] VITALS: Ht 157.5 cm; Wt 68.9 kg
[~2020-06-12 11:22] MED LIST changes: -ASPI81CH49; +ASPI81CH49 PO; -CYCL-707; +CYCL-707 PO; +GABA-282; -GABA-843; -ISOVUE-370 76% 100ML VIAL As Ordered ONE; -LISI2.5T2; +LISI2.5T2 PO; -NITR0.4S14; +NITR0.4S14 PO; -OMEP40CA97; +OMEP40CA97 PO; -PARO20TA3; +PARO20TA3 PO
--- OUTSIDE RECORDS SUMMARY | 2020-06-12 11:30 | CCD ---
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 Active 4718943 Problem Other chronic pain G89.29 Active 36385408 Problem Hematuria R31.9 Active 59921393 Problem Vitamin D deficiency E55.9 Active 84447996 Problem 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 Active 2033 00687 Problem Arthritis M19.90 Active 2482824 Problem Chronic pain G89.29 Active 32337378 Problem Tobacco use disorder F17.200 Active 594395800 Problem Old myocardial infarction I25.2 Oct, Active 1 424008 Problem 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.10 Active 677881917355613 Problem Old intracerebral hemorrhage without late effect Z86.73 Oct, Active 157028052 Problem Psoriasis L40.9 Active 2963194 Problem Essential hypertension I10 Active 42487733 Problem Osteoporosis M81.0 Active 78178921 Problem Abnormal finding on CT scan R93.89 Active 1296 69362 Problem GERD (gastroesophageal reflux disease) K21.9 A ctive 284368925 Problem Anxiety state F41.1 Active 614958345 Problem Obesity E66.9 Active 715503774 Problem Presence of coronary angioplasty implant and graft Z95.5 Active 190183602 Problem Neuropathy of left lower extremity G57.92 Activ e 523772994 Problem Grief F43.20 Active 575392493 Problem Dyslipidemia E78.5 Active 846997655 ALLERGIES Allergen (clinical drug ingredient) Drug/Non Drug Allergy do cumented on EMR Reaction Allergy Type Onset Date Status ticagrelor Brilinta([facility] Code:[address]-61) intracerebral h emorrhage Drug Allergy Active atorvastatin Atorvastatin Calcium([facility] Code:[address]-84) myalgias Drug Allergy Active ENCOUNTERS from 1955 to 2020-06-10 Encounter Location Date Provider Diagnosis [address] [address] May, Moises Woodard IMMUNIZATIONS Vaccine Route Administration Date Status Prolia 60mg/1mL (Denosumab) SC Subcutaneous August 18, 2019 Admi nistered Influenza (18 yrs & older) Flublok IM Intramuscular Feb 28, 2019 Administered Influenza (18 yrs & older) Flublok IM Intramuscular May 24, 2018 Administered Pneumococcal Adult 0.5mL (Pneumovax 23) IM Intramuscular May 09, 2019 Administered TDAP 0.5mL (Boostrix) IM Intramuscular May 27, 2020 Administe red Pneumococcal 0.5mL (Prevnar 13) IM Intramuscular May 24, 2018 Administered Influenza (18 yrs & older) Flublok IM Intramuscular Mar 26, 2020 Administered Influenza (6mo & up) Fluzone IM Intramuscular Feb 16, 2017 Ad ministered Influenza (6mo & up) Fluzone IM Intramuscular Apr 11, 2016 Ad ministered Influenza (6mo & up) Fluzone IM Intramuscular Jun 13, 2013 Ad ministered SOCIAL HISTORY Tobacco Use: Social History Observation Description Date Details (start date - stop date) Current Smoker Sex Assigned At : Social History Observation Description Sex Assigned At Unknown Audit Question Answer Notes Total Score: 0 Interpretation: Alcohol Education Bahai: Question Answer Notes Bahai 33 None Sexual Hx: Question Answer Notes Had sex in the last 12 months (vaginal, oral, or anal)? No Have you ever had an STD? No Drug and Alcohol Question Answer Notes Total Score: 0 Interpretation: No problems reported Alcohol Screening: Question Answer Notes Did you have a drink containing alcohol in the past year? No Points 0 Interpretation Negative BMI Care Goal Follow-Up Question Answer Notes Above Normal BMI Follow-Up Lifestyle education regarding t Tobacco Use: Question Answer Notes Are you a: current smoker Patient counseled on the dangers of tobacco use and urged to quit: 05/27/2020 How many cigarettes a day do you smoke? 11-20 Are you interested in quitting? Not ready to quit Counseled the patient on smoking effects, education provided 05/09/2019 REASON FOR REFERRAL No Information VITAL SIGNS No information MEDICATIONS Medication SIG (Take, Route, Frequency, Duration) Notes Start Da te End Date Status PredniSONE 10 MG 3 tablet at the same time as needed for a flare-up Orally in the Am with food Once a day x 5 days then stop for 5 days Feb Active Benzonatate 200 MG 1 capsule Orally Three times a day prn for 10 day(s) Feb, Active Acetaminophen-Codeine #3 300-30 MG 1 tablet as needed Orally bid prn for 28 days Mar, Active Metoprolol Tartrate 25 mg 1/2 tablet with food Orally Twice a day for 90 Active Prolia 60 MG/ML as directed Subcutaneous Oct, Active Vitamin D 125 MCG (5000 UT) as directed Orally Daily ( after finishing drisdol)) for 30 Days May, Active Gabapentin 300 MG 1 capsule before bedtime Ora lly three times daily for 90 day(s) Aug, Active Ergocalciferol 1.25 MG (72222 UT) 1 capsule Orally onc e weekly x 12 weeks for 90 day(s) Apr, Aug, Active Tylenol Arthritis Pain 650 MG 2 tablets as needed Oral ly every 8 hrs for 30 Days Active Mobic 7.5 mg 1 tablet Orally twice daily for 90 day(s) Active Aspir-81 81 MG 1 tablet Orally Once a day Active Crestor 40 MG 1 tablet Orally Once a day for 90 days 2016 Active Lisinopril 2.5 MG 1 tablet Orally Once a day for 90 Active Omeprazole 40 MG 1 capsule Orally Once a day for 90 days Active Otezla 30 MG 1 tablet Orally Twice a day Active Cyclobenzaprine HCl 10 MG 1 tablet Orally Three times a day for 90 da ys Active Metformin HCl 500 MG 1 tablet with a meal Orally Once a day for 90 day(s) Oct, Active Shingrix 50 mcg/0.5 mL 1 dose now Intramuscular repeat in 2- 6 months for 1 days Apr, Jul, Active Calcium 500 MG 1 tablet with meals Orally Once a day 2016 Active Paxil 20 MG TAKE 1 TABLET BY MOUTH EVERY DAY IN THE MORNING for 90 Active PROCEDURES No Information RESULTS No Results REASON FOR VISIT Pain MEDICAL (GENERAL) HISTORY Type Description Date Medical History CAD s/p IWMI tx with LCx CARLENE - [facility] @ [facility] (11/2016) Medical History h/o intercrainal hemorrhage (from ASA + Brilinta after CARLENE placement), now on ASA + Plavix Medical History HTN, goal BP < 130/80 per AHA/ACC guidel hafsa Medical History Impaired fasting glucose, HO MA-IR 2.1 in 04/2020 down from 9.7 in 05/2019 Medical History Paget's disease- used to see Dr Asya Diana. Non Active Paget's per Dr Diana Medical History Inflammatory/Osteo Arthritis / Bilat knee OA/Spondyloarthropathy - saw [facility] in the past Medical History Osteoporosis, L2 compression fracture 2018 Medical History Tobacco use Medical History Vitamin D deficiency Medical History Anxiety Medical History Chronic pain Medical History Chronic [place] Medical History H/O hypoglobulinemia Medical History H/O hematuria Medical History H/O renal stones Medical History h/o Proteinuria Surgical History partial hysterectomy 1984 Surgical History appendectomy child Surgical History left ankle fx repair 1994 Surgical History B/L cataract removal- [facility] 2010 Surgical History cardiac catherization with t wo stents placed ([facility] @ [facility]) 10/2016 Surgical History Colonoscopy - refuses, does Cologuard Hospitalization History related to surgery Hospitalization History kidney stones 1995 Hospitalization History IWMI tx with thrombolytics and a LCx CARLENE - [facility] 11/2016 Hospitalization History [facility] - intercranial hemor rhage with interventricular extension 11/2016 Goals Section No Information Health Concerns No Information MEDICAL EQUIPMENT No Information MENTAL STATUS No Information FUNCTIONAL STATUS No Information ASSESSMENTS No Information PLAN OF TREATMENT Medication Medication Name Sig Start Date Stop Date Mobic 7.5 mg 1 tablet Orally twice daily for 90 day(s) Shingrix 50 mcg/0.5 mL 1 dose now Intramuscular repeat in 2- 6 months for 1 days Apr, Jul, Crestor 40 MG 1 tablet Orally Once a day for 90 days 08 Dec, 017 Ergocalciferol 1.25 MG (31959 UT) 1 capsule Orally onc e weekly x 12 weeks for 90 day(s) Apr, Aug, Omeprazole 40 MG 1 capsule Orally Once a day for 90 days Next Appt Details Provider Name:Moises Layton [place], 2020-04-0 8 01:45:00 PM, [address] [place], [address], Insurance Providers Payer Name Payer Address Payer Phone Insured Name Patient Relati onship to Insured Coverage Start Date Coverage End Date MEDICARE BLUE PPO [id number] [id number] DAISY ANTONIO self
--- OUTSIDE RECORDS SUMMARY | 2020-06-12 11:30 | CCD ---
Author Author [facility] Organization 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 Active 2033 84523 Problem Arthritis M19.90 Active 2503408 Problem Chronic pain G89.29 Active 31204386 Problem Tobacco use disorder F17.200 Active 457084850 Problem Old myocardial infarction I25.2 Oct, Active 1 494134 Problem Atherosclerotic heart diseas e of [place] coronary artery without angina pectoris I25.10 Active 199272931138586 Problem Old intracerebral hemorrhage without late effect Z86.73 Oct, Active 932906581 Problem Psoriasis L40.9 Active 3043507 Problem Essential hypertension I10 Active 71138068 Problem Osteoporosis M81.0 Active 31133563 Problem Abnormal finding on CT scan R93.89 Active 1296 64639 Problem GERD (gastroesophageal reflux disease) K21.9 A ctive 221801090 Problem Anxiety state F41.1 Active 108366061 Problem Obesity E66.9 Active 036159685 Problem Presence of coronary angioplasty implant and graft Z95.5 Active 142248016 Problem Neuropathy of left lower extremity G57.92 Activ e 653526074 Problem Grief F43.20 Active 877431308 Problem Dyslipidemia E78.5 Active 561090827 ALLERGIES Allergen (clinical drug ingredient) Drug/Non Drug Allergy do cumented on EMR Reaction Allergy Type Onset Date Status ticagrelor Brilinta([facility] Code:[address]-98) intracerebral h emorrhage Drug Allergy Active atorvastatin Atorvastatin Calcium([facility] Code:[address]-42) myalgias Drug Allergy Active ENCOUNTERS from 1955 to 2020-06-10 Encounter Location Date Provider Diagnosis [address] [address] Apr, Moises Woodard Annual physical exam Z00.00 ; Encounter for immunization Z23 ; Screening for malignant neoplasm of colon Z12.11 ; Atherosclerotic heart disease of [place] coronary artery without angina pectoris I25.10 ; Vitamin D deficiency E55.9 ; Tobacco use disorder F17.200 and Hair loss L65.9 IMMUNIZATIONS Vaccine Route Administration Date Status Prolia [...] Notes Total Score: 0 Interpretation: Alcohol Education Druze: Question Answer Notes Druze 33 None Sexual Hx: Question Answer Notes [...] REASON FOR REFERRAL No Information VITAL SIGNS Weight 151.4 lbs Apr, Height 61.5 in Apr, BMI 28.14 kg/m2 Apr, Heart Rate 78 /min Apr, Respiratory Rate 18 /min Apr, Temperature 97.3 degrees Fahrenheit Apr, Oximetry 96 Apr, Blood pressure systolic 122 mm Hg Apr, Blood pressure diastolic 68 mm Hg Apr, MEDICATIONS Medication SIG (Take, Route, Frequency, Duration) [...] 90 day(s) Aug, Active Ergocalciferol 1.25 MG (35360 UT) 1 capsule Orally onc e weekly [...] IN THE MORNING for 90 Active PROCEDURES from 1955 to 2020-06-10 Procedure Date Ordered Result Body Site Immunization: Boostrix 0.5mL IM (TDAP) 2020-05-27 N/A RESULTS No Results REASON FOR VISIT MAW MEDICAL (GENERAL) HISTORY Type Description Date Medical History CAD s/p IWMI tx with LCx CARLENE - [facility] @ [facility] (11/2016) Medical History h/o intercrainal hemorrhage (from [...] repair 1994 Surgical History B/L cataract removal- [facility] 2010 Surgical History cardiac catherization with t wo stents placed ([facility] @ [facility]) 10/2016 Surgical History Colonoscopy - refuses, does Cologuard Hospitalization History related to surgery Hospitalization History kidney stones 1995 Hospitalization History IWMI tx with thrombolytics and a LCx CARLENE - [facility] 11/2016 [facility] - intercranial hemor rhage with interventricular extension 11/2016 Goals Section No Information Health Concerns No Information MEDICAL EQUIPMENT No Information MENTAL STATUS No Information FUNCTIONAL STATUS No Information ASSESSMENTS Encounter Date Diagnosis Assessment Notes Treatment Notes Treatm ent Clinical Notes Apr, Annual physical exam (ICD-10 - Z00.00) Patient Educated with: Tdap Vac [id number] (Tdap Vac [id number]) In support of effectively managing this woman's health, I personally review and updated the entire past medical, family and social histories today. I performed a comprehensive examination as documented above. Please see the preventative medicine section for the remaining details on age appropriate screening. Apr, Encounter for immunization (ICD-10 - Z23) She received a Tdap today in the office. I gave her prescription for Shingrix to take to the pharmacy as this will likely be cheaper for her there. Apr, Screening for malignant neoplasm of colon (ICD-1 0 - Z12.11) I ordered Cologuard testing for next month. Apr, Atherosclerotic heart diseas e of [place] coronary artery without angina pectoris (ICD-10 - I25.10) Symptomatically stable. She continues to follow up with cardiology on a regular basis. She has not been taking her Crestor for some reason. That explains why her lipids are not adequately controlled. I encouraged her to resume taking her Crestor on a daily basis. If for some reason she develops myalgias, she may drop this down to 3 times a week. I've ordered repeat lipid testing for 3 months. Apr, Vitamin D deficiency (ICD-10 - E55.9) Her vitamin D is little low. This will not help support her osteoporosis for which she is already taking Prolia. I ordered high-dose vitamin D for 12 weeks and we'll recheck her level after that. Apr, Tobacco use disorder (ICD-10 - F17.200) Precontemplative. Not interested in considering quitting smoking at this time. Will continue to assess readiness to move to the contemplative stage. Apr, Hair loss (ICD-10 - L65.9) She describes hair loss which she thinks might be related to Otezla. This would be an uncommon side of this medication. She does have stress in her life with her granddaughter currently in rehabilitation. I will check her thyroid function and we can discuss this more at the next office visit. PLAN OF TREATMENT Medication Medication Name Sig Start Date Stop Date Mobic 7.5 mg 1 tablet Orally twice daily for 90 day(s) Shingrix 50 mcg/0.5 mL 1 dose now Intramuscular repeat in 2- 6 months for 1 days Apr, Jul, Crestor 40 MG 1 tablet Orally Once a day for 90 days Apr, Ergocalciferol 1.25 MG (21911 UT) 1 capsule Orally onc e weekly x 12 weeks for 90 day(s) Apr, Aug, Omeprazole 40 MG 1 capsule Orally Once a day for 90 days Treatment Notes Assessment Notes Clinical Notes Annual physical exam Patient Educated with: Tdap Vac [id number] (Tdap Vac [id number].pdf) In support of effectively managing this woman's health, I personally review and updated the entire past medical, family and social histories today. I performed a comprehensive examination as documented above. Please see the preventative medicine section for the remaining details on age appropriate screening. Encounter for immunization She received a Tdap today in the office. I gave her prescription for Shingrix to take to the pharmacy as this will likely be cheaper for her there. Screening for malignant neoplasm of colon I ordered Cologuard testing for next month. Atherosclerotic heart disease of [place] coronary arter y without angina pectoris Symptomatically stable. She continues to follow up with cardiology on a regular basis. She has not been taking her Crestor for some reason. That explains why her lipids are not adequately controlled. I encouraged her to resume taking her Crestor on a daily basis. If for some reason she develops myalgias, she may drop this down to 3 times a week. I've ordered repeat lipid testing for 3 months. Vitamin D deficiency Her vitamin D is li ttle low. This will not help support her osteoporosis for which she is already taking Prolia. I ordered high-dose vitamin D for 12 weeks and we'll recheck her level after that. Tobacco use disorder Precontemplative. N ot interested in considering quitting smoking at this time. Will continue to assess readiness to move to the contemplative stage. Hair loss She describes hair l oss which she thinks might be related to Otezla. This would be an uncommon side of this medication. She does have stress in her life with her granddaughter currently in rehabilitation. I will check her thyroid function and we can discuss this more at the next office visit. Future Test Test Name Order Date LIPID PANEL (CARDIAC RISK) [id number] VITAMIN D 25-HYDROXY [id number] TSH [id number] Next Appt Details 4 Months Reason:follow-up labs, hair los s Provider Name:Moises Woodard, 2020-08- 8 01:45:00 PM, [facility] [place], [address], Follow Up:4 Monthsfollow-up labs, hair loss Insurance Providers Payer Name Payer Address Payer Phone Insured Name Patient Relati onship to Insured Coverage Start Date Coverage End Date MEDICARE BLUE PPO [address] [facility] BLUE [address] [address] DAISY ANTONIO self
--- OUTSIDE RECORDS SUMMARY | 2020-06-12 11:31 | CCD ---
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 Active 2669914 Problem Other chronic pain G89.29 Active 95506290 Problem Hematuria R31.9 Active 95362360 Problem Vitamin D deficiency E55.9 Active 59316581 Problem 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 Active 2033 93167 Problem Arthritis M19.90 Active 3315456 Problem Chronic pain G89.29 Active 02656311 Problem Tobacco use disorder F17.200 Active 779096064 Problem Old myocardial infarction I25.2 Oct, Active 1 367511 Problem Atherosclerotic heart diseas e of [place] coronary artery without angina pectoris I25.10 Active 609917615679274 Problem Old intracerebral hemorrhage without late effect Z86.73 Oct, Active 899983717 Problem Psoriasis L40.9 Active 0332275 Problem Essential hypertension I10 Active 37966019 Problem Osteoporosis M81.0 Active 51032803 Problem Abnormal finding on CT scan R93.89 Active 1296 61046 Problem GERD (gastroesophageal reflux disease) K21.9 A ctive 743799219 Problem Anxiety state F41.1 Active 816978567 Problem Obesity E66.9 Active 884386966 Problem Presence of coronary angioplasty implant and graft Z95.5 Active 103312101 Problem Neuropathy of left lower extremity G57.92 Activ e 175777404 Problem Grief F43.20 Active 978015259 Problem Dyslipidemia E78.5 Active 697550254 ALLERGIES Allergen (clinical drug ingredient) Drug/Non Drug Allergy do cumented on EMR Reaction Allergy Type Onset Date Status ticagrelor Brilinta([facility] Code:[address]-04) intracerebral h emorrhage Drug Allergy Active atorvastatin Atorvastatin Calcium([facility] Code:[address]-94) myalgias Drug Allergy Active ENCOUNTERS from 1955 to 2020-04-28 Encounter Location Date Provider Diagnosis [address] [address] Mar, Michaelle Philip Sore throat J02.9 ; Cough R05 and Fever and chills R50.9 IMMUNIZATIONS Vaccine Route Administration Date Status Influenza (18 yrs & older) Flublok IM Intramuscular Mar 26, 2020 Administered Influenza (18 yrs & older) Flublok IM Intramuscular Feb 28, 2019 Administered Influenza (18 yrs & older) Flublok IM Intramuscular May 24, 2018 Administered Prolia 60mg/1mL (Denosumab) SC Subcutaneous August 18, 2019 Admi nistered Pneumococcal Adult 0.5mL (Pneumovax 23) IM Intramuscular May 09, 2019 Administered Pneumococcal 0.5mL (Prevnar 13) IM Intramuscular May 24, 2018 Administered Influenza (6mo & up) Fluzone IM [...] Notes Total Score: 0 Interpretation: Alcohol Education Zoroastrianism: Question Answer Notes Zoroastrianism 33 None Sexual Hx: Question Answer Notes [...] of tobacco use and urged to quit: 05/09/2019 How many cigarettes a day do you smoke? 11-20 Are you interested in quitting? Not ready to quit Counseled the patient on smoking effects, education provided 05/09/2019 REASON FOR REFERRAL No Information VITAL SIGNS Weight 150 lbs Mar, Height 61.5 in Mar, BMI 27.88 kg/m2 Mar, Heart Rate 89 /min Mar, Respiratory Rate 16 /min Mar, Temperature 99.1 degrees Fahrenheit Mar, Oximetry 97 Mar, Blood pressure systolic 115 mm Hg Mar, Blood pressure diastolic 78 mm Hg Mar, MEDICATIONS Medication SIG (Take, Route, Frequency, Duration) Notes Start Da te End Date Status Paxil 20 MG TAKE 1 TABLET BY MOUTH EVERY DAY IN THE MORNING for 90 Active Calcium 500 MG 1 tablet with meals Orally Once a day 2016 Active Metoprolol Tartrate 25 mg 1/2 tablet with food Orally Twice a day for 90 Active Vitamin D 125 MCG (5000 UT) as directed Orally Daily ( after finishing drkillianol)) for 30 Days May, Active Otezla 30 MG 1 tablet Orally Twice a day Active Omeprazole 40 MG 1 capsule Orally Once a day for 90 Active Lisinopril 2.5 MG 1 tablet Orally Once a day for 90 Active PredniSONE 10 MG 3 tablet at the same time as needed for a flare-up Orally in the Am with food Once a day x 5 days then stop for 5 days Feb Active Crestor 40 MG 1 tablet Orally three times a week for 90 day(s) Apr, Active Benzonatate 200 MG 1 capsule Orally Three times a day prn for 10 day(s) Feb, Active Prolia 60 MG/ML as directed Subcutaneous Oct, Active Ergocalciferol 1.25 MG (43708 UT) 1 capsule Orally onc e weekly x 12 weeks for 90 day(s) Apr, Unknown Cyclobenzaprine HCl 10 MG 1 tablet Orally Three times a day for 90 da ys Active Gabapentin 300 MG 1 capsule before bedtime Ora lly three times daily for 90 day(s) Aug, Active Aspir-81 81 MG 1 tablet Orally Once a day Active MetFORMIN HCl ER 500 MG 1 tablet with evening meal O rally Once a day for 90 day(s) May, Unknown Acetaminophen-Codeine #3 300-30 MG 1 tablet as needed Orally bid prn for 28 days Mar, Active Mobic 7.5 mg 1 tablet Orally twice daily for 90 Active Augmentin 875-125 MG 1 tablet Orally Twice a day for 10 day(s) Mar, Active Tylenol Arthritis Pain 650 MG 2 tablets as needed Oral ly every 8 hrs for 30 Days Active Metformin HCl 500 MG 1 tablet with a meal Orally Once a day for 90 day(s) Oct, Active PROCEDURES No Information RESULTS Component Value Reference Range LACTIC ACID LEVEL, LACTATE Reviewed date:04/20/2020 14:45:19 Interpretation: Performing Lab:[facility] [address] [address] , ,[place] [address] Rapid Strep (Sangita Strep A+ MIMI) Reviewed date:04/20/2020 11:06:52 Interpretation: Performing Lab:[facility], ,[place] [address] Internal Controls Performed (Y/N) yes Rapid Strep (Sangita Strep A+ MIMI) Result (Positive/Negative) neg PLZ CHEST 2 VIEW Reviewed date:04/20/2020 14:45:11 Interpretation: Performing Lab:[facility]], ,[place] [address] BLOOD CULTURES Reviewed date:04/21/2020 13:09:27 Interpretation: Performing Lab:[facility] [address] [address] , ,[place] [address] CBC with Differential Reviewed date:04/29/2020 11:21:56 Interpretation:pt aware Performing Lab:[facility] [address] [address] , ,[place] [address] WHITE BLOOD COUNT 13.9 4.0-10.0 RED BLOOD COUNT 4.98 4.00-5.40 HEMOGLOBIN 15.0 12.0-15.5 HEMATOCRIT 46.6 36.0-47.0 MEAN CORPUSCULAR VOLUME 93.6 80.0-96.0 MEAN CORPUSCULAR HEMOGLOBIN 30.1 27.0-33.0 MEAN CORPUSCULAR HGB CONC 32.2 32.0-36.5 RED CELL DISTRIBUTION WIDTH 14.2 11.5-14.5 PLATELET COUNT, AUTOMATED 543 150-450 NEUTROPHILS % 67.3 36.0-66.0 LYMPH % 22.1 24.0-44.0 MONO % 6.4 0.0-5.0 EOS % 0.8 0.0-3.0 BASO % 0.7 0.0-1.0 NEUTROPHILS # 9.3 1.5-8.5 LYMPH # 3.1 1.5-5.0 MONO # 0.9 0.0-0.8 EOS # 0.1 0.0-0.5 BASO # 0.1 0.0-0.2 Comprehensive Metabolic Profile (CMP) Reviewed date:04/29/2020 11:21:50 Interpretation:pt aware Performing Lab:[facility] [address] [place] [id number] , ,[place] [id number] GLUCOSE, FASTING 87 70-100 BLOOD UREA NITROGEN 13 7-18 CREATININE FOR GFR 0.71 0.55-1.30 GLOMERULAR FILTRATION RATE > 60.0 >45 SODIUM LEVEL 137 136-145 POTASSIUM SERUM 5.0 3.5-5.1 CHLORIDE LEVEL 102 98-107 CARBON DIOXIDE LEVEL 28 21-32 CALCIUM LEVEL 9.6 8.8-10.2 AST/SGOT 22 7-37 ALT/SGPT 42 12-78 ALKALINE PHOSPHATASE 187 45-117 BILIRUBIN,TOTAL 1.1 0.2-1.0 TOTAL PROTEIN 6.8 6.4-8.2 ALBUMIN 2.7 3.2-5.2 ALBUMIN/GLOBULIN RATIO 0.7 1.2-2.2 GATS (NEGATIVE STREP SCREEN) Reviewed date:04/27/2020 12:23:21 Interpretation:robert Valero, GATS negative Performing Lab:[facility] [place] [address] GATS (NEGATIVE STREP SCREEN) BLOOD CULTURES Reviewed date:04/26/2020 09:16:06 Interpretation: Performing Lab:[facility] [address] [id number] , ,[place] [address] REASON FOR VISIT pending covid, fever MEDICAL (GENERAL) HISTORY Type Description Date Medical History CAD s/p IWMI tx with LCx CARLENE - Celeste @ [facility] (11/2016) Medical History h/o intercrainal hemorrhage (from ASA + Brilinta after CARLENE placement), now on ASA + Plavix Medical History HTN, goal BP < 130/80 per AHA/ACC guidel hafsa Medical History Paget's disease- used to see Dr Asya Diana. Non Active Paget's per Dr Diana Medical History Inflammatory/Osteo Arthritis / Bilat knee OA/Spondyloarthropathy - saw [facility] in the past Medical History Osteoporosis, L2 compression fracture 2018 Medical History Tobacco use Medical History Anxiety Medical History Proteinuria- Dr. Neri Medical History Impaired fasting glucose Medical History Vitamin D deficiency Medical History Chronic pain Medical History Chronic [place] Medical History H/O hypoglobulinemia Medical History H/O hematuria Medical History H/O renal stones Surgical History partial hysterectomy 1984 Surgical History appendectomy child Surgical History left ankle fx repair 1994 Surgical History B/L cataract removal- [facility] 2010 Surgical History cardiac catherization with t wo stents placed (Celeste @ [facility]) 10/2016 Surgical History Colonoscopy-Refuses. FOB- neg x 3 06/10 Hospitalization History related to surgery Hospitalization History kidney stones 1995 Hospitalization History IWMI tx with thrombolytics and a LCx [facility]LENE - [facility] 11/2016 [facility] - intercranial hemor rhage with interventricular extension 11/2016 Goals Section No Information Health Concerns No Information MEDICAL EQUIPMENT No Information MENTAL STATUS No Information FUNCTIONAL STATUS No Information ASSESSMENTS Encounter Date Diagnosis Assessment Notes Treatment Notes Treatm ent Clinical Notes Mar, Sore throat (ICD-10 - J02.9) Mar, Cough (ICD-10 - R05) Mar, Fever and chills (ICD-10 - R50.9) Mar, Other 04/21/20: Called pt with results. She stated that she went back to [facility] last night and had a rapid COVID test which was negative. She is actually feeling better today than she has been. Notified pt that her WBC is elevated, will start her on Augmentin and follow-up with pt early next week. With any increased work of breathing, she is to go to the ED. PLAN OF TREATMENT Medication Medication Name Sig Start Date Stop Date Augmentin 875-125 MG 1 tablet Orally Twice a day for 10 day(s) 2 5 Mar, 2020 Treatment Notes Test Name Order Date Comprehensive Metabolic Profile (CMP) 2020-04-28 CBC with Differential 2020-04-28 Next Appt Details Provider Name:Moises Layton Yamilet, 2020-04-29 1 10:00:00 AM, [address] [place], [address], Insurance Providers Payer Name Payer Address Payer Phone Insured Name Patient Relati onship to Insured Coverage Start Date Coverage End Date MEDICARE BLUE PPO [address] [facility] [place] [address] DAISY ANTONIO self
--- OUTSIDE RECORDS SUMMARY | 2020-06-12 11:31 | CCD ---
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 Active 2033 44152 Problem Arthritis M19.90 Active 7453010 Problem Chronic pain G89.29 Active 64945946 Problem Tobacco use disorder F17.200 Active 476166316 Problem Old myocardial infarction I25.2 Oct, Active 1 114327 Problem Atherosclerotic heart diseas e of [place] coronary artery without angina pectoris I25.10 Active 471776671851317 Problem Old intracerebral hemorrhage without late effect Z86.73 Oct, Active 700682124 Problem Psoriasis L40.9 Active 5457478 Problem Essential hypertension I10 Active 58545220 Problem Osteoporosis M81.0 Active 43497376 Problem Abnormal finding on CT scan R93.89 Active 1296 88260 Problem GERD (gastroesophageal reflux disease) K21.9 A ctive 946440228 Problem Anxiety state F41.1 Active 037304555 Problem Obesity E66.9 Active 122615144 Problem Presence of coronary angioplasty implant and graft Z95.5 Active 929561700 Problem Neuropathy of left lower extremity G57.92 Activ e 097684679 Problem Grief F43.20 Active 549404763 Problem Dyslipidemia E78.5 Active 367565194 ALLERGIES Allergen (clinical drug ingredient) Drug/Non Drug Allergy do cumented on EMR Reaction Allergy Type Onset Date Status ticagrelor Brilinta([facility] Code:[address]-73) intracerebral h emorrhage Drug Allergy Active atorvastatin Atorvastatin Calcium([facility] Code:[address]-09) myalgias Drug Allergy Active ENCOUNTERS from 1955 to 2020-05-01 Encounter Location Date Provider Diagnosis [address] [address] Mar, Moises Woodard IMMUNIZATIONS Vaccine Route Administration Date Status Influenza [...] Notes Total Score: 0 Interpretation: Alcohol Education Taoist: Question Answer Notes Taoist 33 None Sexual Hx: Question Answer Notes [...] finishing drisdol)) for 30 Days May, Active Otezla 30 [...] directed Subcutaneous Oct, Active Ergocalciferol 1.25 MG (16370 UT) 1 capsule Orally onc e weekly [...] day(s) Oct, Active PROCEDURES No Information RESULTS No Results REASON FOR VISIT pharmacy did not recieve the MEDICAL (GENERAL) HISTORY Type Description Date Medical History CAD s/p IWMI tx with LCx CARLENE - Celeste @ [facility] (11/2016) Medical History h/o intercrainal hemorrhage [...] repair 1994 Surgical History B/L cataract removal- [facility] 2010 Surgical History cardiac catherization with t wo stents placed (Celeste @ [facility]) 10/2016 Surgical History Colonoscopy-Refuses. FOB- neg x 3 06/10 Hospitalization History related to surgery Hospitalization History kidney stones 1995 Hospitalization History IWMI tx with thrombolytics and a LCx [facility]LENE - [facility] 11/2016 [facility] - [...] for 10 day(s) 2 5 Mar, 2020 Next Appt Details Provider Name:Moises Woodard, 2019-12-3 1 10:00:00 AM, [address] [place], [address], Insurance Providers Payer Name Payer Address Payer Phone Insured Name Patient Relati onship to Insured Coverage Start Date Coverage End Date MEDICARE BLUE PPO [address] [facility] [address] [place] [address] DAISY ANTONIO
--- OUTSIDE RECORDS SUMMARY | 2020-06-12 11:31 | CCD ---
Author Author [facility] Organization 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 Active 2033 16239 Problem Arthritis M19.90 Active 3461939 Problem Chronic pain G89.29 Active 70108350 Problem Tobacco use disorder F17.200 Active 758027993 Problem Old myocardial infarction I25.2 Oct, Active 1 924917 Problem Atherosclerotic heart diseas e of [place] coronary artery without angina pectoris I25.10 Active 474034425740480 Problem Old intracerebral hemorrhage without late effect Z86.73 Oct, Active 902421184 Problem Psoriasis L40.9 Active 9675263 Problem Essential hypertension I10 Active 91023886 Problem Osteoporosis M81.0 Active 07441919 Problem Abnormal finding on CT scan R93.89 Active 1296 55465 Problem GERD (gastroesophageal reflux disease) K21.9 A ctive 734203640 Problem Anxiety state F41.1 Active 124920997 Problem Obesity E66.9 Active 976366252 Problem Presence of coronary angioplasty implant and graft Z95.5 Active 904130023 Problem Neuropathy of left lower extremity G57.92 Activ e 045775470 Problem Grief F43.20 Active 001894771 Problem Dyslipidemia E78.5 Active 663349772 ALLERGIES Allergen (clinical drug ingredient) Drug/Non Drug Allergy do cumented on EMR Reaction Allergy Type Onset Date Status ticagrelor Brilinta([facility] Code:[address]-27) intracerebral h emorrhage Drug Allergy Active atorvastatin Atorvastatin Calcium([facility] Code:[address]-94) myalgias Drug Allergy Active ENCOUNTERS from 1955 to 2020-06-05 Encounter Location Date Provider Diagnosis [address] [address] May, Moises Woodard IMMUNIZATIONS Vaccine Route Administration [...] Notes Total Score: 0 Interpretation: Alcohol Education Yazidi: Question Answer Notes Yazidi 33 None Sexual Hx: Question Answer Notes [...] 90 day(s) Aug, Active Ergocalciferol 1.25 MG (62537 UT) 1 capsule Orally onc e weekly [...] Information RESULTS No Results REASON FOR VISIT Meloxicam MEDICAL (GENERAL) HISTORY Type Description Date Medical History CAD s/p IWMI tx with LCx CARLENE - Celeste @ [facility] (11/2016) Medical History h/o intercrainal hemorrhage [...] repair 1994 Surgical History B/L cataract removal- [facility] 2010 Surgical History cardiac catherization with t wo stents placed (Celeste @ [facility]) 10/2016 Surgical History Colonoscopy - refuses, does Cologuard Hospitalization History related to surgery Hospitalization History kidney stones 1995 Hospitalization History IWMI tx with thrombolytics and a LCx CARLENE - [facility] 11/2016 Hospitalization History [facility] - intercranial hemor rhage with interventricular extension [...] days 08 Dec, 017 Ergocalciferol 1.25 MG (54800 UT) 1 capsule Orally onc e weekly x 12 weeks for 90 day(s) Apr, Aug, Omeprazole 40 MG 1 capsule Orally Once a day for 90 days Next Appt Details Provider Name:Moises Woodard, 2020-08-0 8 01:45:00 PM, [address] [place], [address], Insurance Providers Payer Name Payer Address Payer Phone Insured Name Patient Relati onship to Insured Coverage Start Date Coverage End Date MEDICARE BLUE PPO [address] [id number] DAISY ANTONIO self
--- OUTSIDE RECORDS SUMMARY | 2020-06-12 11:31 | CCD ---
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 Active 9255051 Problem Other chronic pain G89.29 Active 67723105 Problem Hematuria R31.9 Active 31363010 Problem Vitamin D deficiency E55.9 Active 86017325 Problem 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 Active 2033 26948 Problem Arthritis M19.90 Active 2718993 Problem Chronic pain G89.29 Active 28985740 Problem Tobacco use disorder F17.200 Active 642899433 Problem Old myocardial infarction I25.2 Oct, Active 1 304655 Problem Atherosclerotic heart diseas e of [place] coronary artery without angina pectoris I25.10 Active 074617122978729 Problem Old intracerebral hemorrhage without late effect Z86.73 Oct, Active 546661362 Problem Psoriasis L40.9 Active 3365978 Problem Essential hypertension I10 Active 86832341 Problem Osteoporosis M81.0 Active 65295814 Problem Abnormal finding on CT scan R93.89 Active 1296 05244 Problem GERD (gastroesophageal reflux disease) K21.9 A ctive 647265559 Problem Anxiety state F41.1 Active 742549368 Problem Obesity E66.9 Active 020321127 Problem Presence of coronary angioplasty implant and graft Z95.5 Active 551737317 Problem Neuropathy of left lower extremity G57.92 Activ e 743256708 Problem Grief F43.20 Active 241730031 Problem Dyslipidemia E78.5 Active 803210520 ALLERGIES Allergen (clinical drug ingredient) Drug/Non Drug Allergy do cumented on EMR Reaction Allergy Type Onset Date Status ticagrelor Brilinta([facility] 2[facility] Code:[address]-11) intracerebral h emorrhage Drug Allergy Active atorvastatin Atorvastatin Calcium([facility]NOTE 2] Code:[address]-68) myalgias Drug Allergy Active ENCOUNTERS from 1955 to 2020-04-02 Encounter Location Date Provider Diagnosis [address] [place] [address] Mar, Moises Woodard Chronic pain G89.29 IMMUNIZATIONS Vaccine Route Administration Date Status Influenza [...] Notes Total Score: 0 Interpretation: Alcohol Education Mandaeism: Question Answer Notes Mandaeism 33 None Sexual Hx: Question Answer Notes [...] MEDICATIONS Medication SIG (Take, Route, Frequency, Duration) Start Date En d Date Status Vitamin D 125 MCG (5000 UT) as directed Orally Daily ( after finishing drisdol)) for 30 Days May, Active Acetaminophen-Codeine #3 300-30 MG 1 tablet as needed Orally bid prn for 28 days Mar, Active Prolia 60 MG/ML as directed Subcutaneous Oct, Active Otezla 30 MG 1 tablet Orally Twice a day Active MetFORMIN HCl ER 500 MG 1 tablet with evening meal O rally Once a day for 90 day(s) May, Not-Taking Aspir-81 81 MG 1 tablet Orally Once a day Active Ergocalciferol 1.25 MG (80126 UT) 1 capsule Orally onc e weekly x 12 weeks for 90 day(s) Apr, Not-Taking Gabapentin 300 MG 1 capsule before bedtime Ora lly three times daily for 90 day(s) Aug, Active Cyclobenzaprine HCl 10 MG 1 tablet Orally Three times a day for 90 days Active Paxil 20 MG TAKE 1 TABLET BY MOUTH EVERY DAY IN THE MORNING for 90 Active PredniSONE 10 MG 3 tablet at the same time as needed for a flare-up Orally in the Am with food Once a day x 5 days then stop for 5 days Feb, Active Tylenol Arthritis Pain 650 MG 2 tablets as needed Oral ly every 8 hrs for 30 Days Active Lisinopril 2.5 MG 1 tablet Orally Once a day for 90 Active Mobic 7.5 mg 1 tablet Orally twice daily for 90 Active Metoprolol Tartrate 25 mg 1/2 tablet with food Orally Twice a day or Active Calcium 500 MG 1 tablet with meals Orally Once a day May, Active Omeprazole 40 MG 1 capsule Orally Once a day for 90 Active Benzonatate 200 MG 1 capsule Orally Three times a day prn f or 10 day(s) Feb, Active Crestor 40 MG 1 tablet Orally three times a week for 90 day(s) 08 2016 Active Metformin HCl 500 MG 1 tablet with a meal Orally Once a day for 90 day(s) Oct, Active PROCEDURES No Information RESULTS No Results REASON FOR VISIT Prescription MEDICAL (GENERAL) HISTORY Type Description Date Medical History CAD s/p IWMI tx with LCx CARLENE - Celeste @ [facility] (11/2016) Medical History h/o intercrainal hemorrhage (from [...] repair 1994 Surgical History B/L cataract removal- [facility] 2010 Surgical History cardiac catherization with t wo stents placed (Celeste @ [facility]) 10/2016 Surgical History Colonoscopy-Refuses. FOB- neg x 3 06/10 Hospitalization History related to surgery Hospitalization History kidney stones 1995 Hospitalization History IWMI tx with thrombolytics and a LCx CARLENE - [facility] 11/2016 Hospitalization History [facility] - intercranial hemor rhage with interventricular extension 11/2016 Goals Section No Information Health Concerns No Information MEDICAL EQUIPMENT No Information MENTAL STATUS No Information FUNCTIONAL STATUS No Information ASSESSMENTS Encounter Date Diagnosis Notes Mar, Chronic pain (ICD-10 - G89.29) PLAN OF TREATMENT Medication Medication Name Sig Start Date Stop Date Metformin HCl 500 MG 1 tablet with a meal Orally Once a day for 90 day(s) Oct, PredniSONE 10 MG 3 tablet at the same time as needed for a flare-up Orally in the Am with food Once a day x 5 days then stop for 5 days Feb, Acetaminophen-Codeine #3 300-30 MG 1 tablet as needed Orally bid prn for 28 days Mar, Next Appt Details Provider Name:Moises Woodard, 2020-12-3 1 10:00:00 AM, [address] [place], [address], Insurance Providers Payer Name Payer Address Payer Phone Insured Name Patient Relati onship to Insured Coverage Start Date Coverage End Date MEDICARE BLUE O [address] [id number] DAISY ANTONIO self
--- OUTSIDE RECORDS SUMMARY | 2020-06-12 11:31 | CCD ---
Author Author [facility] Organization 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 Active 2033 86402 Problem Arthritis M19.90 Active 7017851 Problem Chronic pain G89.29 Active 71919476 Problem Tobacco use disorder F17.200 Active 448939514 Problem Old myocardial infarction I25.2 Oct, Active 1 890216 Problem Atherosclerotic heart diseas e of [place] coronary artery without angina pectoris I25.10 Active 676926445205187 Problem Old intracerebral hemorrhage without late effect Z86.73 Oct, Active 363359374 Problem Psoriasis L40.9 Active 4081916 Problem Essential hypertension I10 Active 55264561 Problem Osteoporosis M81.0 Active 31272023 Problem Abnormal finding on CT scan R93.89 Active 1296 66870 Problem GERD (gastroesophageal reflux disease) K21.9 A ctive 862722556 Problem Anxiety state F41.1 Active 572670716 Problem Obesity E66.9 Active 028936133 Problem Presence of coronary angioplasty implant and graft Z95.5 Active 493161631 Problem Neuropathy of left lower extremity G57.92 Activ e 388057513 Problem Grief F43.20 Active 114740631 Problem Dyslipidemia E78.5 Active 113811783 ALLERGIES Allergen (clinical drug ingredient) Drug/Non Drug Allergy do cumented on EMR Reaction Allergy Type Onset Date Status ticagrelor Brilinta([facility] Code:[address]-47) intracerebral h emorrhage Drug Allergy Active atorvastatin Atorvastatin Calcium([facility] Code:[address]-91) myalgias Drug Allergy Active ENCOUNTERS from 1955 to 2020-06-05 Encounter Location Date Provider Diagnosis [address] [address] Feb, Moises Yamilet Abnormal finding on CT scan R93.89 ; Ath erosclerotic heart disease of [place] coronary artery without angina pectoris I25.10 ; Arthritis M19.90 ; Tobacco use disorder F17.200 ; Essential hypertension I10 ; Chronic pain G89.29 ; Impaired fasting glucose R73.01 ; Vitamin D deficiency E55.9 and Encounter for immunization Z23 IMMUNIZATIONS Vaccine Route Administration Date Status Influenza [...] Notes Total Score: 0 Interpretation: Alcohol Education Jewish: Question Answer Notes Jewish 33 None Sexual Hx: Question Answer Notes [...] FOR REFERRAL No Information VITAL SIGNS Weight 155.8 lbs Feb, Height 61.5 in Feb, BMI 28.96 kg/m2 Feb, Heart Rate 75 /min Feb, Respiratory Rate 18 /min Feb, Temperature 97.2 degrees Fahrenheit Feb, Oximetry 96 Feb, Blood pressure systolic 120 mm Hg Feb, Blood pressure diastolic 72 mm Hg Feb, MEDICATIONS Medication SIG (Take, Route, Frequency, Duration) [...] 90 day(s) Aug, Active Ergocalciferol 1.25 MG (86821 UT) 1 capsule Orally onc e weekly [...] for 90 Active PROCEDURES from 1955 to 2020-06-05 Procedure Date Ordered Result Body Site Immunization: Flublok Quadrivalent (18 years & older) 0.5mL IM (Influenza) 2020-03-26 N/A RESULTS No Results REASON FOR VISIT follow up MEDICAL (GENERAL) HISTORY Type Description Date Medical History CAD s/p IWMI tx with LCx CARLENE - [facility] @ [facility] (11/2016) Medical History h/o intercrainal hemorrhage [...] with t wo stents placed (Celeste @ [facility]) 10/2016 Surgical History Colonoscopy - refuses, [...] Notes Treatment Notes Treatm ent Clinical Notes Feb, Abnormal finding on CT scan (ICD-10 - R93.89) A screening CT about 6 months ago showed three new nodular densities. She is getting a 6 month repeat to further characterize these. 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 She is asymptomatic recently. Feb, Arthritis (ICD-10 - M19.90) She is feeling more aches recently. She reports that a short pulse of prednisone has helped in the past and request a script for this to be used as needed. I don't see significant harm to this so I prescribed it for her. Feb, Tobacco use disorder (ICD-10 - F17.200) Pre-contemplative. Will continue to assess readiness to move to the contemplative stage. Feb, Essential hypertension (ICD-10 - I10) Her BP is well controlled. Continue current regimen, monitor. Feb, Chronic pain (ICD-10 - G89.29) I refilled her T#3 today. A random UTox was ordered with the other labs she was to have done before the next office visit. Feb, Impaired fasting glucose (ICD-10 - R73.01) I ordered labs to be done before the next office visit. Feb, Vitamin D deficiency (ICD-10 - E55.9) I ordered labs to be done before the next office visit. Feb, Encounter for immunization (ICD-10 - Z23) She received her flu shot today. PLAN OF TREATMENT Medication Medication Name Sig Start Date Stop Date Mobic 7.5 mg 1 tablet Orally twice daily for 90 day(s) Shingrix 50 mcg/0.5 mL 1 dose now Intramuscular repeat in 2- 6 months for 1 days 31 Dec, 2020 31 Mar, 2021 Crestor 40 MG 1 tablet Orally Once a day for 90 days 08 Apr, 017 Ergocalciferol 1.25 MG (51659 UT) 1 capsule Orally onc e weekly x 12 weeks for 90 day(s) Apr, Aug, Omeprazole 40 MG 1 capsule Orally Once a day for 90 days Treatment Notes Assessment Notes Clinical Notes Abnormal finding on CT scan A screening CT about 6 months ago showed three new nodular densities. She is getting a 6 month repeat to further characterize these. Atherosclerotic heart disease of [place] coronary arter y without angina pectoris She continues to follow with cardiology. She is asymptomatic recently. Arthritis She is feeling more aches recently. She reports that a short pulse of prednisone has helped in the past and request a script for this to be used as needed. I don't see significant harm to this so I prescribed it for her. Tobacco use disorder Pre-contemplative. Will continue to assess readiness to move to the contemplative stage. Essential hypertension Her BP is well co ntrolled. Continue current regimen, monitor. Chronic pain I refilled her T#3 t betzaida. A random UTox was ordered with the other labs she was to have done before the next office visit. Impaired fasting glucose I ordered labs to be done before the next office visit. Vitamin D deficiency I ordered labs to b e done before the next office visit. Encounter for immunization She received her flu shot today. Treatment Notes Test Name Order Date CT Chest with Contrast 2020-06-05 Future Test Test Name Order Date Comprehensive Metabolic Profile (CMP) [id number] LIPID PANEL (CARDIAC RISK) [id number] VITAMIN D 25-HYDROXY [id number] PAIN MGMT UR 10 PANEL [id number] INSULIN LEVEL [id number] HEMOGLOBIN A1c [id number] Next Appt Details April 2020 Reason:MAW Provider Name:Moises Woodard, 8 01:45:00 PM, [address] [place], [address], Follow Up:April 2020MAW Insurance Providers Payer Name Payer Address Payer Phone Insured Name Patient Relati onship to Insured Coverage Start Date Coverage End Date MEDICARE BLUE PPO [address] [facility] [address] [address] DAISY ANTONIO
--- OUTSIDE RECORDS SUMMARY | 2020-06-12 11:31 | CCD ---
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 Active 2232747 Problem Other chronic pain G89.29 Active 65536354 Problem Hematuria R31.9 Active 86111368 Problem Vitamin D deficiency E55.9 Active 02569958 Problem 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 Active 2033 80535 Problem Arthritis M19.90 Active 1292191 Problem Chronic pain G89.29 Active 18696642 Problem Tobacco use disorder F17.200 Active 528806319 Problem Old myocardial infarction I25.2 Oct, Active 1 776701 Problem Atherosclerotic heart diseas e of [place] coronary artery without angina pectoris I25.10 Active 988192749570429 Problem Old intracerebral hemorrhage without late effect Z86.73 Oct, Active 369121701 Problem Psoriasis L40.9 Active 7076138 Problem Essential hypertension I10 Active 85661609 Problem Osteoporosis M81.0 Active 19526533 Problem Abnormal finding on CT scan R93.89 Active 1296 81986 Problem GERD (gastroesophageal reflux disease) K21.9 A ctive 597839175 Problem Anxiety state F41.1 Active 556966375 Problem Obesity E66.9 Active 703694790 Problem Presence of coronary angioplasty implant and graft Z95.5 Active 241391894 Problem Neuropathy of left lower extremity G57.92 Activ e 926320279 Problem Grief F43.20 Active 940968515 Problem Dyslipidemia E78.5 Active 967436274 ALLERGIES Allergen (clinical drug ingredient) Drug/Non Drug Allergy do cumented on EMR Reaction Allergy Type Onset Date Status ticagrelor Brilinta([facility] Code:[address]-99) intracerebral h emorrhage Drug Allergy Active atorvastatin Atorvastatin Calcium([facility] Code:[address]-29) myalgias Drug Allergy Active ENCOUNTERS from 1955 to 2020-03-17 Encounter Location Date Provider Diagnosis [address] [place] [address] 07 Feb, 2020 Moises Woodard IMMUNIZATIONS Vaccine Route Administration Date [...] Notes Total Score: 0 Interpretation: Alcohol Education Sabianism: Question Answer Notes Sabianism 33 None Sexual Hx: Question Answer Notes [...] Duration) Start Date En d Date Status Metformin HCl 500 MG 1 tablet with a meal Orally Once a day for 30 day(s) Oct, Active Lisinopril 2.5 MG 1 tablet Orally Once a day for 90 Active Tylenol with Codeine #3 300-30 MG 1 tablet Orally/Refe rence #: [id number] twice daily as neededMDD2 for 7 days Active Crestor 40 MG 1 tablet Orally three times a week for 90 day(s) 08 2016 Active Tylenol Arthritis Pain 650 MG 2 tablets as needed Oral ly every 8 hrs for 30 Days Active Benzonatate 200 MG 1 capsule Orally Three times a day prn f or 10 day(s) Feb, Active Cyclobenzaprine HCl 10 MG 1 tablet Orally Three times a day for 90 days Active Aspir-81 81 MG 1 tablet Orally Once a day Active Calcium 500 MG 1 tablet with meals Orally Once a day May, Active Omeprazole 40 MG 1 capsule Orally Once a day for 90 Active Ergocalciferol 1.25 MG (76275 UT) 1 capsule Orally onc e weekly x 12 weeks for 90 day(s) Apr, Active Prolia 60 MG/ML as directed Subcutaneous Oct, Active Vitamin D 125 MCG (5000 UT) as directed Orally Daily ( after finishing drisdol)) for 30 Days May, Active Paxil 20 MG TAKE 1 TABLET BY MOUTH EVERY DAY IN THE MORNING for 90 Active Gabapentin 300 MG 1 capsule before bedtime Ora lly three times daily for 90 day(s) Aug, Active Metoprolol Tartrate 25 mg 1/2 tablet with food Orally Twice a day or 90 Active Otezla 30 MG 1 tablet Orally Twice a day Active MetFORMIN HCl ER 500 MG 1 tablet with evening meal O rally Once a day for 90 day(s) May, Active Mobic 7.5 mg 1 tablet Orally twice daily for 90 Active PROCEDURES No Information RESULTS No Results REASON FOR VISIT appointment MEDICAL (GENERAL) HISTORY Type Description Date Medical History CAD s/p IWMI tx with LCx CARLENE - [facility] @ [facility] (11/2016) Medical History h/o intercrainal hemorrhage [...] repair 1994 Surgical History B/L cataract removal- [facility] 2010 Surgical History cardiac catherization with t wo stents placed (Celeste @ [facility]) 10/2016 Surgical History Colonoscopy-Refuses. FOB- neg x 3 06/10 Hospitalization History related to surgery Hospitalization History kidney stones 1995 Hospitalization History IWMI tx with thrombolytics and a LCx CARLENE - [facility] 11/2016 Hospitalization History [facility] [place] - intercranial hemor rhage with interventricular extension 11/2016 Goals Section No Information Health Concerns No Information MEDICAL EQUIPMENT No Information MENTAL STATUS No Information FUNCTIONAL STATUS No Information ASSESSMENTS No Information PLAN OF TREATMENT Medication Medication Name Sig Start Date Stop Date Metoprolol Tartrate 25 mg 1/2 tablet with food Orally Twice a da y for 90 Omeprazole 40 MG 1 capsule Orally Once a day for 90 Mobic 7.5 mg 1 tablet Orally twice daily for 90 Paxil 20 MG TAKE 1 TABLET BY MOUTH EVERY DAY IN THE MORNING for 90 Cyclobenzaprine HCl 10 MG 1 tablet Orally Three times a day for 90 days Metformin HCl 500 MG 1 tablet with a meal Orally Once a day for 30 day(s) Oct, Lisinopril 2.5 MG 1 tablet Orally Once a day for 90 Tylenol with Codeine #3 300-30 MG 1 tablet Orally/Refe rence #: [id number] twice daily as neededMDD2 for 7 days Tylenol Arthritis Pain 650 MG 2 tablets as needed Oral ly every 8 hrs for 30 Days Next Appt Details Provider Name:Moises Woodard, 2020-10-3 0 03:00:00 PM, [facility] [place], [address], Insurance Providers Payer Name Payer Address Payer Phone Insured Name Patient Relati onship to Insured Coverage Start Date Coverage End Date MEDICARE BLUE PPO [id number] [address] DAISY ANTONIO self
--- OUTSIDE RECORDS SUMMARY | 2020-06-12 11:31 | CCD ---
Author Author [facility] Organization 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 Active 2033 71098 Problem Arthritis M19.90 Active 5543352 Problem Chronic pain G89.29 Active 54330327 Problem Tobacco use disorder F17.200 Active 441409175 Problem Old myocardial infarction I25.2 Oct, Active 1 931524 Problem Atherosclerotic heart diseas e of [place] coronary artery without angina pectoris I25.10 Active 344916719672931 Problem Old intracerebral hemorrhage without late effect Z86.73 Oct, Active 384619860 Problem Psoriasis L40.9 Active 4538310 Problem Essential hypertension I10 Active 10517112 Problem Osteoporosis M81.0 Active 32607512 Problem Abnormal finding on CT scan R93.89 Active 1296 94742 Problem GERD (gastroesophageal reflux disease) K21.9 A ctive 081740661 Problem Anxiety state F41.1 Active 931585962 Problem Obesity E66.9 Active 708915058 Problem Presence of coronary angioplasty implant and graft Z95.5 Active 081087006 Problem Neuropathy of left lower extremity G57.92 Activ e 808942970 Problem Grief F43.20 Active 169291210 Problem Dyslipidemia E78.5 Active 386052403 ALLERGIES Allergen (clinical drug ingredient) Drug/Non Drug Allergy do cumented on EMR Reaction Allergy Type Onset Date Status ticagrelor Brilinta([facility] Code:[address]-58) intracerebral h emorrhage Drug Allergy Active atorvastatin Atorvastatin Calcium([facility] Code:[address]-21) myalgias Drug Allergy Active ENCOUNTERS from 1953 to 2020-04-27 Encounter Location Date Provider Diagnosis [address] [address] Mar, Michaelle Philip Sore throat J02.9 ; [...] Notes Total Score: 0 Interpretation: Alcohol Education Uatsdin: Question Answer Notes Uatsdin 33 None Sexual Hx: Question Answer Notes [...] directed Subcutaneous Oct, Active Ergocalciferol 1.25 MG (68333 UT) 1 capsule Orally onc e weekly [...] LEVEL, LACTATE Reviewed date:04/20/2020 14:45:19 Interpretation: Performing Lab:Formerly [facility], [facility] [address] [facility] [address] , ,[place] [address] Rapid Strep (Sangita Strep A+ MIMI) Reviewed date:04/20/2020 11:06:52 Interpretation: Performing Lab:Formerly [facility], ,[place] [address] Internal Controls Performed (Y/N) yes Rapid Strep (Sangita Strep A+ MIMI) Result (Positive/Negative) neg PLZ CHEST 2 VIEW Reviewed date:04/20/2020 14:45:11 Interpretation: Performing Lab:Formerly [facility] [address] [facility]], ,[place] [address] BLOOD CULTURES Reviewed date:04/21/2020 13:09:27 Interpretation: Performing Lab:[facility] [address] [facility] [address] , ,[place] [address] REASON FOR VISIT pending covid, fever MEDICAL (GENERAL) HISTORY Type Description Date Medical History CAD s/p IWMI tx with LCx CARLENE - [facility] @ [facility] (11/2016) Medical History h/o intercrainal hemorrhage [...] repair 1994 Surgical History B/L cataract removal- [facility] 2010 Surgical History cardiac catherization with t wo stents placed ([facility] @ [facility]) 10/2016 Surgical History Colonoscopy-Refuses. FOB- neg x 3 06/10 Hospitalization History related to surgery Hospitalization History kidney stones 1995 Hospitalization History IWMI tx with thrombolytics and a LCx CARLENE - [facility] 11/2016 Hospitalization History [facility] - intercranial hemor rhage with interventricular extension [...] She stated that she went back to [facility] last night and had a rapid COVID [...] 2020 Treatment Notes Test Name Order Date GATS (NEGATIVE STREP SCREEN) 2020-04-27 Comprehensive Metabolic Profile (CMP) 2020-04-27 CBC with Differential 2020-04-27 Next Appt Details Provider Name:Moises Kinjal Woodard, 2020-04-29 1 10:00:00 AM, [facility] [place], [address], Insurance Providers Payer Name Payer Address Payer Phone Insured Name Patient Relati onship to Insured Coverage Start Date Coverage End Date MEDICARE BLUE PPO [address] [place] [id number] DAISY ANTONIO self
--- OUTSIDE RECORDS SUMMARY | 2020-06-12 11:31 | CCD ---
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 Active 2033 60785 Problem Arthritis M19.90 Active 8873151 Problem Chronic pain G89.29 Active 96504817 Problem Tobacco use disorder F17.200 Active 938282948 Problem Old myocardial infarction I25.2 Oct, Active 1 973797 Problem Atherosclerotic heart diseas e of [place] coronary artery without angina pectoris I25.10 Active 930402835310392 Problem Old intracerebral hemorrhage without late effect Z86.73 Oct, Active 386403721 Problem Psoriasis L40.9 Active 3298934 Problem Essential hypertension I10 Active 41726129 Problem Osteoporosis M81.0 Active 02873588 Problem Abnormal finding on CT scan R93.89 Active 1296 21312 Problem GERD (gastroesophageal reflux disease) K21.9 A ctive 274476578 Problem Anxiety state F41.1 Active 917769629 Problem Obesity E66.9 Active 812122753 Problem Presence of coronary angioplasty implant and graft Z95.5 Active 311203803 Problem Neuropathy of left lower extremity G57.92 Activ e 074057096 Problem Grief F43.20 Active 356405704 Problem Dyslipidemia E78.5 Active 409731428 ALLERGIES Allergen (clinical drug ingredient) Drug/Non Drug Allergy do cumented on EMR Reaction Allergy Type Onset Date Status ticagrelor Brilinta([facility] Code:[address]-50) intracerebral h emorrhage Drug Allergy Active atorvastatin Atorvastatin Calcium([facility] Code:[address]-86) myalgias Drug Allergy Active ENCOUNTERS from 1955 to 2020-04-21 Encounter Location Date Provider Diagnosis [address] [address] Mar, Shaun Adrienne IMMUNIZATIONS Vaccine Route Administration Date Status Influenza [...] Notes Total Score: 0 Interpretation: Alcohol Education Protestant: Question Answer Notes Protestant 33 None Sexual Hx: Question Answer Notes [...] directed Subcutaneous Oct, Active Ergocalciferol 1.25 MG (49926 UT) 1 capsule Orally onc e weekly [...] Information RESULTS No Results REASON FOR VISIT pending COVID results MEDICAL (GENERAL) HISTORY Type Description Date Medical History CAD s/p IWMI tx with LCx CARLENE - [facility] @ [facility] (11/2016) Medical History h/o intercrainal [...] repair 1994 Surgical History B/L cataract removal- [facility] 2010 Surgical History cardiac catherization with t wo stents placed ([facility] @ [facility]) 10/2016 Surgical History Colonoscopy-Refuses. FOB- neg x 3 06/10 Hospitalization History related to surgery Hospitalization History kidney stones 1995 Hospitalization History IWMI tx with thrombolytics and a LCx [facility]LENE - [facility] 11/2016 Hospitalization History [facility] - intercranial hemor [...] Name:Moises Woodard, 2019-12-3 1 10:00:00 AM, [address] [place], [address], Insurance Providers Payer Name Payer Address Payer Phone Insured Name Patient Relati onship to Insured Coverage Start Date Coverage End Date MEDICARE BLUE PPO [address] [facility] [address] [place] [id number] DAISY ANTONIO
--- OUTSIDE RECORDS SUMMARY | 2020-06-12 11:32 | CCD ---
Author Author [facility] Organization [facility] Address Unknown Phone Unavailable Care Team Providers Care Remelt Sugar Boiler Name Role Phone JdenowAleida PA Unavailable Unavailable Symenow, Aleida Palomares PA Unavailable Unavailable Symenow, Aleida Palomares PA Unavailable Unavailable Symenow, Aleida Palomares PA Unavailable Unavailable Symenow, Aleida Palomares PA Unavailable Unavailable Symenow, Aleida Marielle PA Unavailable Unavailable Symenow, Aleida Palomares PA Unavailable Unavailable Symenow, Aleida Marielle PA Unavailable Unavailable Symenow, Aleida Marielle PA Unavailable Unavailable Symenow, Aleida Marielle PA Unavailable Unavailable Symenow, Aleida Marielle PA Unavailable Unavailable Symenow, Aleida Marielle PA Unavailable Unavailable Symenow, Aleida Marielle PA Unavailable Unavailable Symenow, Aleida Marielle PA Unavailable Unavailable Symenow, Aleida Marielle PA Unavailable Unavailable Symenow, Aleida Marielle PA Unavailable Unavailable Symenow, Aleida Marielle PA Unavailable Unavailable Symenow, Aleida Marielle PA Unavailable Unavailable Symenow, Aleida Marielle PA Unavailable Unavailable Symenow, Aleida Marielle PA Unavailable Unavailable Symenow, Aleida Marielle PA Unavailable Unavailable Symenow, Aleida Marielle PA Unavailable Unavailable Symenow, Aleida Marielle PA Unavailable Unavailable Symenow, Aleida Marielle PA Unavailable Unavailable Symenow, Aleida Marielle PA Unavailable Unavailable Symenow, Aleida Marielle PA Unavailable Unavailable Symenow, Aleida Marielle PA Unavailable Unavailable Symenow, Aleida Marielle PA Unavailable Unavailable Symenow, Aleida Marielle PA Unavailable Unavailable Symenow, Aleida Marielle PA Unavailable Unavailable Symenow, Aleida Marielle PA Unavailable Unavailable Symenow, Aleida Marielle PA Unavailable Unavailable Symenow, Aleida Marielle PA Unavailable Unavailable Symenow, Aleida Marielle PA Unavailable Unavailable Symenow, Aleida Marielle PA Unavailable Unavailable Symenow, Aleida Marielle PA Unavailable Unavailable Nisa, Stout Mannie Gene Unavailable Unavailabl e Nisa, Stout Mannie Gene MD Unavailable Unavailabl e Nisa, Stout Mannie Gene MD Unavailable Unavailabl e Nisa, Stout Mannie Gene MD Unavailable Unavailabl e Nisa, Stout Mannie Gene MD Unavailable Unavailabl e Nisa, Stout Mannie Gene MD Unavailable Unavailabl e Nisa, Stout Mannie Gene Unavailable Unavailabl e Nisa, Stout Mannie Gene Unavailable Unavailabl e Nisa, Stout Mannie Gene Unavailable Unavailabl e Nisa, Stout Mannie Gene Unavailable Unavailabl e Nisa, Stout Mannie Gene MD Unavailable Unavailabl e Nisa, Stout Mannie Gene MD Unavailable Unavailabl e Nisa, Stout Mannie Gene MD Unavailable Unavailabl e Nisa, Stout Mannie Gene MD Unavailable Unavailabl e Nisa, Stout Mannie Gene MD Unavailable Unavailabl e Nisa, Stout Mnanie Gene MD Unavailable Unavailabl e Nisa, Stout Mannie Gene MD Unavailable Unavailabl e Nisa, Stout Mannie Gene Unavailable Unavailabl e Nisa, Stout Mannie Gene Unavailable Unavailabl e Nisa, Stout Mannie Gene Unavailable Unavailabl e Nisa, Stout Mannie Gene Unavailable Unavailabl e Nisa, Stout Mannie Gene MD Unavailable Unavailabl e Nisa, Argelia Chand Gene Unavailable Unavailabl e Nisa, Argelia Chand Gene Unavailable Unavailabl e Nisa, Argelia Chand Gene MD Unavailable Unavailabl e Nisa, Argelia Chand Gene MD Unavailable Unavailabl e Nisa, Argelia Chand Gene Unavailable Unavailabl e Nisa, Argelia Pepe MD Unavailable Unavailabl e Nisa, Argelia Pepe MD Unavailable Unavailabl e Re-disclosure Warning The records that you are about to access may contain information from federally-assisted alcohol or drug abuse programs. If such information is present, then the following federally mandated warning applies: This information has been disclosed to you from records protected by federal confidentiality rules (42 CFR part 2). The federal rules prohibit you from making any further disclosure of this information unless further disclosure is expressly permitted by the written consent of the person to whom it pertains or as otherwise permitted by 42 CFR part 2. A general authorization for the release of medical or other information is NOT sufficient for this purpose. The Federal rules restrict any use of the information to criminally investigate or prosecute any alcohol or drug abuse patient.The records that you are about to access may contain highly sensitive health information, the redisclosure of which is protected by Article 27-F of the [facility] Public Health law. If you continue you may have access to information: Regarding HIV / AIDS; Provided by facilities licensed or operated by the [facility] Office of Mental Health; or Provided by the [facility] Office for People With Developmental Disabilities. If such information is present, then the following [facility] mandated warning applies: This information has been disclosed to you from confidential records which are protected by state law. State law prohibits you from making any further disclosure of this information without the specific written consent of the person to whom it pertains, or as otherwise permitted by law. Any unauthorized further disclosure in violation of state law may result in a fine or long-term sentence or both. A general authorization for the release of medical or other information is NOT sufficient authorization for further disc losure. Allergies and Adverse Reactions Type Description Substance Reaction Status Data Source(s ) Drug allergy Atorvastatin Calcium atorvastatin myalgias Active eCW1 ([facility]) Drug allergy Brilinta Ticagrelor intracerebral hemorrhage Active eCW1 ([facility]) Family History Family Member Name Family Member Gender Family Member Status Date o f Status Description Data Source(s) Unknown Male Problem MEDENT ([facility]) Unknown Male Problem [facility] ([facility]) age 84 Encounters Encounter Providers Location Date Indications Data Source(s ) Unknown [address] [facility] [place] [address] 06/09/2020 12:00:00 AM EST eCW1 ([facility]) Unknown [address] [facility] [place] [address] 06/01/2020 12:00:00 AM EST [facility] Outpatient [address] [facility] [place] [address] 05/27/2020 12:00:00 AM EST eCW1 [facility] Unknown [address] [facility] [place] [address] 04/21/2020 12:00:00 AM EST [facility]CW1 [facility] Office Visit, Est Pt., Level 3 [address] [place] [address] 04/20/2020 12:00:00 AM EST eCW1 ([facility]) [place] [address] [facility] [place] [address] 04/19/2020 12:00:00 AM EST eCW1 [facility] [place] [address] [facility] [place] [address] 03/29/2020 12:00:00 AM EST eCW1 [facility] Outpatient [address] [facility] [place] [address] 03/26/2020 12:00:00 AM EDT eCW1 ([facility]) Unknown [address] [facility] [place] [address] 03/08/2020 12:00:00 AM EDT eCW1 ([facility]) Unknown [address] [facility] [place] [address] 03/03/2020 12:00:00 AM EDT eCW1 ([facility]) [place] [address] [facility] [place] [address] 03/03/2020 12:00:00 AM EDT eCW1 ([facility]) [place] [address] [facility] [address] 02/26/2020 12:00:00 AM EDT [facility] [place] [address] [facility] [address] 12/16/2019 12:00:00 AM EDT eCW1 [facility]) Outpatient Attender: Marielle BARAKAT Main Office 12/10/2019 11:30:00 AM EDT MEDENT ([facility]) Outpatient Referrer: Mannie Paula MD 11/26/2019 05: 46:00 AM EDT [facility] Unknown [address] [facility] [address] 11/12/2019 12:00:00 AM EDT eCW1 ([facility] [address] [facility] [address] 09/18/2019 12:00:00 AM EDT eCW1 [facility] [address] [facility] [address] 09/08/2019 12:00:00 AM EDT eCW1 [facility] [address] [facility] [place] [address] 09/05/2019 12:00:00 AM EDT eCW1 ([facility]) [facility] [address] [facility] [address] 08/18/2019 12:00:00 AM EDT eCW1 ([facility]) [facility] [address] [facility] [address] 07/31/2019 12:00:00 AM EST eCW1 ([facility]) Outpatient Referrer: Mannie Paula MD 07/10/2019 12: 35:00 PM EST [facility] Resident [address] [place] [address] 06/20/2019 12:00:00 AM EST eCW1 (Counts include 234 beds at the [facility]) Outpatient Attender: Marielle BARAKAT Main Office 06/16/2019 10:30:00 AM EST MEDENT ([facility]) [facility] [place] [address] [facility] [address] 06/02/2019 12:00:00 AM EST eCW1 (Counts include 234 beds at the [facility]) [facility] [address] [facility] [address] 05/09/2019 12:00:00 AM EST eCW1 (Counts include 234 beds at the [facility]) Immunizations Vaccine Date Status Description Data Source(s) Tdap 05/27/2020 02:39:00 PM EST completed e CW1 ([facility]) Tdap 05/27/2020 02:39:00 PM EST completed e CW1 ([facility]) Tdap 05/27/2020 02:39:00 PM EST completed e CW1 ([facility]) Tdap 05/27/2020 02:39:00 PM EST completed e CW1 ([facility]) influenza, recombinant, quadrIvalent,injectable, prese rvative free 03/26/2020 05:02:00 PM EDT completed eCW1 ([facility]) influenza, recombinant, quadrIvalent,injectable, prese rvative free 03/26/2020 05:02:00 PM EDT completed eCW1 ([facility]) influenza, recombinant, quadrIvalent,injectable, prese rvative free 03/26/2020 05:02:00 PM EDT completed eCW1 ([facility]) influenza, recombinant, quadrIvalent,injectable, prese rvative free 03/26/2020 05:02:00 PM EDT completed eCW1 ([facility]) influenza, recombinant, quadrIvalent,injectable, prese rvative free 03/26/2020 05:02:00 PM EDT completed eCW1 ([facility]) influenza, recombinant, quadrIvalent,injectable, prese rvative free 03/26/2020 05:02:00 PM EDT completed eCW1 ([facility]) influenza, recombinant, quadrIvalent,injectable, prese rvative free 03/26/2020 05:02:00 PM EDT completed eCW1 ([facility]) influenza, recombinant, quadrIvalent,injectable, prese rvative free 03/26/2020 05:02:00 PM EDT completed eCW1 ([facility]) influenza, recombinant, quadrIvalent,injectable, prese rvative free 03/26/2020 05:02:00 PM EDT completed eCW1 ([facility]) Prolia 60mg/1mL (Denosumab) 08/18/2019 02:17:00 PM EDT completed eCW1 ([facility]) Prolia 60mg/1mL (Denosumab) 08/18/2019 02:17:00 PM EDT completed eCW1 ([facility]) Prolia 60mg/1mL (Denosumab) 08/18/2019 02:17:00 PM EDT completed eCW1 ([facility]) Prolia 60mg/1mL (Denosumab) 08/18/2019 02:17:00 PM EDT completed eCW1 ([facility]) Prolia 60mg/1mL (Denosumab) 08/18/2019 02:17:00 PM EDT completed eCW1 ([facility]) Prolia 60mg/1mL (Denosumab) 08/18/2019 02:17:00 PM EDT completed eCW1 ([facility]) Prolia 60mg/1mL (Denosumab) 08/18/2019 02:17:00 PM EDT completed eCW1 ([facility]) Prolia 60mg/1mL (Denosumab) 08/18/2019 02:17:00 PM EDT completed eCW1 ([facility]) Prolia 60mg/1mL (Denosumab) 08/18/2019 02:17:00 PM EDT completed eCW1 ([facility]) Prolia 60mg/1mL (Denosumab) 08/18/2019 02:17:00 PM EDT completed eCW1 ([facility]) Prolia 60mg/1mL (Denosumab) 08/18/2019 02:17:00 PM EDT completed eCW1 ([facility]) Prolia 60mg/1mL (Denosumab) 08/18/2019 02:17:00 PM EDT completed eCW1 ([facility]) Prolia 60mg/1mL (Denosumab) 08/18/2019 02:17:00 PM EDT completed eCW1 ([facility]) Prolia 60mg/1mL (Denosumab) 08/18/2019 02:17:00 PM EDT completed eCW1 ([facility]) Prolia 60mg/1mL (Denosumab) 08/18/2019 02:17:00 PM EDT completed eCW1 ([facility]) pneumococcal polysaccharide PPV23 05/09/2019 05:31:00 PM EST comple bridgette eCW1 ([facility]) pneumococcal polysaccharide PPV23 05/09/2019 05:31:00 PM EST comple bridgette eCW1 ([facility]) pneumococcal polysaccharide PPV23 05/09/2019 05:31:00 PM EST comple bridgette eCW1 ([facility]) pneumococcal polysaccharide PPV23 05/09/2019 05:31:00 PM EST comple bridgette eCW1 ([facility]) pneumococcal polysaccharide PPV23 05/09/2019 05:31:00 PM EST comple bridgette eCW1 ([facility]) pneumococcal polysaccharide PPV23 05/09/2019 05:31:00 PM EST comple bridgette eCW1 ([facility]) pneumococcal polysaccharide PPV23 05/09/2019 05:31:00 PM EST comple bridgette eCW1 ([facility]) pneumococcal polysaccharide PPV23 05/09/2019 05:31:00 PM EST comple bridgette eCW1 ([facility]) pneumococcal polysaccharide PPV23 05/09/2019 05:31:00 PM EST comple bridgette eCW1 ([facility]) pneumococcal polysaccharide PPV23 05/09/2019 05:31:00 PM EST comple bridgette eCW1 ([facility]) pneumococcal polysaccharide PPV23 05/09/2019 05:31:00 PM EST comple bridgette eCW1 ([facility]) pneumococcal polysaccharide PPV23 05/09/2019 05:31:00 PM EST comple bridgette eCW1 ([facility]) pneumococcal polysaccharide PPV23 05/09/2019 05:31:00 PM EST comple bridgette eCW1 ([facility]) pneumococcal polysaccharide PPV23 05/09/2019 05:31:00 PM EST comple bridgette eCW1 ([facility]) pneumococcal polysaccharide PPV23 05/09/2019 05:31:00 PM EST comple bridgette eCW1 ([facility]) pneumococcal polysaccharide PPV23 05/09/2019 05:31:00 PM EST comple bridgette eCW1 ([facility]) Medications Medication Brand Name Start Date Product Form Dose Route Admi nistrative Instructions Pharmacy Instructions Status Indications Reaction Description Data Source(s) Shingrix 50 mcg/0.5 mL UNK 05/27/2020 12:00:00 AM EST active Shingrix 50 mcg/0.5 mL eCW1 ([facility]) Shingrix 50 mcg/0.5 mL UNK 05/27/2020 12:00:00 AM EST active Shingrix 50 mcg/0.5 mL eCW1 ([facility]) Shingrix 50 mcg/0.5 mL UNK 05/27/2020 12:00:00 AM EST active Shingrix 50 mcg/0.5 mL eCW1 ([facility]) Shingrix 50 mcg/0.5 mL UNK 05/27/2020 12:00:00 AM EST active Shingrix 50 mcg/0.5 mL eCW1 ([facility]) Augmentin 875-125 MG UNK 04/21/2020 12:00:00 AM EST 1.0 {tablet } active Augmentin 875-125 MG eCW1 ([facility]) Augmentin 875-125 MG UNK 04/21/2020 12:00:00 AM EST 1.0 {tablet } active Augmentin 875-125 MG eCW1 ([facility]1983) Augmentin 875-125 MG UNK 04/21/2020 12:00:00 AM EST 1.0 {tablet } active Augmentin 875-125 MG eCW1 ([facility]1983) Augmentin 875-125 MG UNK 04/21/2020 12:00:00 AM EST 1.0 {tablet } active Augmentin 875-125 MG eCW1 ([facility]) Acetaminophen 300 MG / Codeine Phosphate 30 MG Oral Tablet Acetaminophen-Codeine #3 300-30 MG Acetaminophen-Codeine #3 300-30 MG 03/30/2020 12:00:00 AM EST 1.0 {tablet_as_needed} active Acetaminophen -Codeine #3 300-30 MG eCW1 ([facility]) Acetaminophen 300 MG / Codeine Phosphate 30 MG Oral Tablet Acetaminophen-Codeine #3 300-30 MG Acetaminophen-Codeine #3 300-30 MG 03/30/2020 12:00:00 AM EST 1.0 {tablet_as_needed} active Acetaminophen -Codeine #3 300-30 MG eCW1 ([facility]) Acetaminophen 300 MG / Codeine Phosphate 30 MG Oral Tablet Acetaminophen-Codeine #3 300-30 MG Acetaminophen-Codeine #3 300-30 MG 03/30/2020 12:00:00 AM EST 1.0 {tablet_as_needed} active Acetaminophen -Codeine #3 300-30 MG eCW1 ([facility]) Acetaminophen 300 MG / Codeine Phosphate 30 MG Oral Tablet Acetaminophen-Codeine #3 300-30 MG Acetaminophen-Codeine #3 300-30 MG 03/30/2020 12:00:00 AM EST 1.0 {tablet_as_needed} active Acetaminophen -Codeine #3 300-30 MG eCW1 ([facility]) Acetaminophen 300 MG / Codeine Phosphate 30 MG Oral Tablet Acetaminophen-Codeine #3 300-30 MG Acetaminophen-Codeine #3 300-30 MG 03/30/2020 12:00:00 AM EST 1.0 {tablet_as_needed} active Acetaminophen -Codeine #3 300-30 MG eCW1 ([facility]) Acetaminophen 300 MG / Codeine Phosphate 30 MG Oral Tablet Acetaminophen-Codeine #3 300-30 MG Acetaminophen-Codeine #3 300-30 MG 03/30/2020 12:00:00 AM EST 1.0 {tablet_as_needed} active Acetaminophen -Codeine #3 300-30 MG eCW1 ([facility]) Acetaminophen 300 MG / Codeine Phosphate 30 MG Oral Tablet Acetaminophen-Codeine #3 300-30 MG Acetaminophen-Codeine #3 300-30 MG 03/30/2020 12:00:00 AM EST 1.0 {tablet_as_needed} active Acetaminophen -Codeine #3 300-30 MG eCW1 ([facility]) Acetaminophen 300 MG / Codeine Phosphate 30 MG Oral Tablet Acetaminophen-Codeine #3 300-30 MG Acetaminophen-Codeine #3 300-30 MG 03/30/2020 12:00:00 AM EST 1.0 {tablet_as_needed} active Acetaminophen -Codeine #3 300-30 MG eCW1 ([facility]) Acetaminophen 300 MG / Codeine Phosphate 30 MG Oral Tablet Acetaminophen-Codeine #3 300-30 MG Acetaminophen-Codeine #3 300-30 MG 03/30/2020 12:00:00 AM EST 1.0 {tablet_as_needed} active Acetaminophen -Codeine #3 300-30 MG eCW1 ([facility]) Prednisone 10 MG Oral Tablet PredniSONE 10 MG PredniSONE 10 MG 03/26/2020 12:00:00 AM EDT active PredniSO NE 10 MG eCW1 ([facility]) Prednisone 10 MG Oral Tablet PredniSONE 10 MG PredniSONE 10 MG 03/26/2020 12:00:00 AM EDT active PredniSO NE 10 MG eCW1 ([facility]) Prednisone 10 MG Oral Tablet PredniSONE 10 MG PredniSONE 10 MG 03/26/2020 12:00:00 AM EDT active PredniSO NE 10 MG eCW1 ([facility]) Prednisone 10 MG Oral Tablet PredniSONE 10 MG PredniSONE 10 MG 03/26/2020 12:00:00 AM EDT active PredniSO NE 10 MG eCW1 ([facility]) Prednisone 10 MG Oral Tablet PredniSONE 10 MG PredniSONE 10 MG 03/26/2020 12:00:00 AM EDT active PredniSO NE 10 MG eCW1 ([facility]) Prednisone 10 MG Oral Tablet PredniSONE 10 MG PredniSONE 10 MG 03/26/2020 12:00:00 AM EDT active PredniSO NE 10 MG eCW1 ([facility]) Prednisone 10 MG Oral Tablet PredniSONE 10 MG PredniSONE 10 MG 03/26/2020 12:00:00 AM EDT active PredniSO NE 10 MG eCW1 ([facility]) Prednisone 10 MG Oral Tablet PredniSONE 10 MG PredniSONE 10 MG 03/26/2020 12:00:00 AM EDT active PredniSO NE 10 MG eCW1 ([facility]) Prednisone 10 MG Oral Tablet PredniSONE 10 MG PredniSONE 10 MG 03/26/2020 12:00:00 AM EDT active PredniSO NE 10 MG eCW1 ([facility]) Metformin hydrochloride 500 MG Oral Tablet Metformin HCL 12/09/2019 12:00:00 AM EDT ORAL active [facility] ([facility] Metformin hydrochloride 500 MG Oral Tablet Metformin H Cl 500 MG Metformin HCl 500 MG 11/14/2019 12:00:00 AM EDT 1.0 {tablet_with_a_meal} active Metformin HCl 500 MG eCW1 ([facility]) Metformin hydrochloride 500 MG Oral Tablet Metformin H Cl 500 MG Metformin HCl 500 MG 11/14/2019 12:00:00 AM EDT 1.0 {tablet_with_a_meal} active Metformin HCl 500 MG eCW1 ([facility]) Metformin hydrochloride 500 MG Oral Tablet Metformin H Cl 500 MG Metformin HCl 500 MG 11/14/2019 12:00:00 AM EDT 1.0 {tablet_with_a_meal} active Metformin HCl 500 MG eCW1 ([facility]) Metformin hydrochloride 500 MG Oral Tablet Metformin H Cl 500 MG Metformin HCl 500 MG 11/14/2019 12:00:00 AM EDT 1.0 {tablet_with_a_meal} active Metformin HCl 500 MG eCW1 ([facility]) Metformin hydrochloride 500 MG Oral Tablet Metformin H Cl 500 MG Metformin HCl 500 MG 11/14/2019 12:00:00 AM EDT 1.0 {tablet_with_a_meal} active Metformin HCl 500 MG eCW1 ([facility]) Metformin hydrochloride 500 MG Oral Tablet Metformin H Cl 500 MG Metformin HCl 500 MG 11/14/2019 12:00:00 AM EDT 1.0 {tablet_with_a_meal} active Metformin HCl 500 MG eCW1 ([facility]) Metformin hydrochloride 500 MG Oral Tablet Metformin H Cl 500 MG Metformin HCl 500 MG 11/14/2019 12:00:00 AM EDT 1.0 {tablet_with_a_meal} active Metformin HCl 500 MG eCW1 ([facility]) Metformin hydrochloride 500 MG Oral Tablet Metformin H Cl 500 MG Metformin HCl 500 MG 11/14/2019 12:00:00 AM EDT 1.0 {tablet_with_a_meal} active Metformin HCl 500 MG eCW1 ([facility]) Metformin hydrochloride 500 MG Oral Tablet Metformin H Cl 500 MG Metformin HCl 500 MG 11/14/2019 12:00:00 AM EDT 1.0 {tablet_with_a_meal} active Metformin HCl 500 MG eCW1 ([facility]) Metformin hydrochloride 500 MG Oral Tablet Metformin H Cl 500 MG Metformin HCl 500 MG 11/14/2019 12:00:00 AM EDT 1.0 {tablet_with_a_meal} active Metformin HCl 500 MG eCW1 ([facility]) Metformin hydrochloride 500 MG Oral Tablet Metformin H Cl 500 MG Metformin HCl 500 MG 11/14/2019 12:00:00 AM EDT 1.0 {tablet_with_a_meal} active Metformin HCl 500 MG eCW1 ([facility]) Metformin hydrochloride 500 MG Oral Tablet Metformin H Cl 500 MG Metformin HCl 500 MG 11/14/2019 12:00:00 AM EDT 1.0 {tablet_with_a_meal} active Metformin HCl 500 MG eCW1 ([facility]) Metformin hydrochloride 500 MG Oral Tablet Metformin H Cl 500 MG Metformin HCl 500 MG 11/14/2019 12:00:00 AM EDT 1.0 {tablet_with_a_meal} active Metformin HCl 500 MG eCW1 ([facility]) Metformin hydrochloride 500 MG Oral Tablet Metformin H Cl 500 MG Metformin HCl 500 MG 11/14/2019 12:00:00 AM EDT 1.0 {tablet_with_a_meal} active Metformin HCl 500 MG eCW1 ([facility]) Cholecalciferol 5000 UNT Oral Capsule Vitamin D 125 MC G (5000 UT) Vitamin D 125 MCG (5000 UT) 06/20/2019 12:00:00 AM EST acti ve Vitamin D 125 MCG (5000 UT) eCW1 ([facility]) Cholecalciferol 5000 UNT Oral Capsule Vitamin D 125 MC G (5000 UT) Vitamin D 125 MCG (5000 UT) 06/20/2019 12:00:00 AM EST acti ve Vitamin D 125 MCG (5000 UT) eCW1 ([facility]) Cholecalciferol 5000 UNT Oral Capsule Vitamin D 125 MC G (5000 UT) Vitamin D 125 MCG (5000 UT) 06/20/2019 12:00:00 AM EST acti ve Vitamin D 125 MCG (5000 UT) eCW1 ([facility]) Cholecalciferol 5000 UNT Oral Capsule Vitamin D 125 MC G (5000 UT) Vitamin D 125 MCG (5000 UT) 06/20/2019 12:00:00 AM EST acti ve Vitamin D 125 MCG (5000 UT) eCW1 ([facility]) Cholecalciferol 5000 UNT Oral Capsule Vitamin D 125 MC G (5000 UT) Vitamin D 125 MCG (5000 UT) 06/20/2019 12:00:00 AM EST acti ve Vitamin D 125 MCG (5000 UT) eCW1 ([facility]) 24 HR Metformin hydrochloride 500 MG Ext ended Release Oral Tablet MetFORMIN HCl ER 500 MG MetFORMIN HCl ER 500 MG 06/20/2019 12:00:00 AM EST 1.0 {tablet_with_evening_meal} active MetFO RMIN HCl ER 500 MG eCW1 ([facility]) MetFORMIN HCl ER 500 MG MetFORMIN HCl ER 500 MG 06/20/2019 12:00:00 AM EST 1.0 {tablet_with_evening_meal} active MetFO RMIN HCl ER 500 MG eCW1 ([facility]) 24 HR Metformin hydrochloride 500 MG Ext ended Release Oral Tablet MetFORMIN HCl ER 500 MG MetFORMIN HCl ER 500 MG 06/20/2019 12:00:00 AM EST 1.0 {tablet_with_evening_meal} active MetFO RMIN HCl ER 500 MG eCW1 ([facility]) Cholecalciferol 5000 UNT Oral Capsule Vitamin D 125 MC G (5000 UT) Vitamin D 125 MCG (5000 UT) 06/20/2019 12:00:00 AM EST acti ve Vitamin D 125 MCG (5000 UT) eCW1 ([facility]) Cholecalciferol 5000 UNT Oral Capsule Vitamin D 125 MC G (5000 UT) Vitamin D 125 MCG (5000 UT) 06/20/2019 12:00:00 AM EST acti ve Vitamin D 125 MCG (5000 UT) eCW1 ([facility]) Cholecalciferol 5000 UNT Oral Capsule Vitamin D 125 MC G (5000 UT) Vitamin D 125 MCG (5000 UT) 06/20/2019 12:00:00 AM EST acti ve Vitamin D 125 MCG (5000 UT) eCW1 ([facility]) 24 HR Metformin hydrochloride 500 MG Ext ended Release Oral Tablet MetFORMIN HCl ER 500 MG MetFORMIN HCl ER 500 MG 06/20/2019 12:00:00 AM EST 1.0 {tablet_with_evening_meal} active MetFO RMIN HCl ER 500 MG eCW1 ([facility]) Cholecalciferol 5000 UNT Oral Capsule Vitamin D 125 MC G (5000 UT) Vitamin D 125 MCG (5000 UT) 06/20/2019 12:00:00 AM EST acti ve Vitamin D 125 MCG (5000 UT) eCW1 ([facility]) MetFORMIN HCl ER 500 MG MetFORMIN HCl ER 500 MG 06/20/2019 12:00:00 AM EST 1.0 {tablet_with_evening_meal} active MetFO RMIN HCl ER 500 MG eCW1 ([facility]) Cholecalciferol 5000 UNT Oral Capsule Vitamin D 125 MC G (5000 UT) Vitamin D 125 MCG (5000 UT) 06/20/2019 12:00:00 AM EST acti ve Vitamin D 125 MCG (5000 UT) eCW1 ([facility]) Cholecalciferol 5000 UNT Oral Capsule Vitamin D 125 MC G (5000 UT) Vitamin D 125 MCG (5000 UT) 06/20/2019 12:00:00 AM EST acti ve Vitamin D 125 MCG (5000 UT) eCW1 ([facility]) Cholecalciferol 5000 UNT Oral Capsule Vitamin D 125 MC G (5000 UT) Vitamin D 125 MCG (5000 UT) 06/20/2019 12:00:00 AM EST acti ve Vitamin D 125 MCG (5000 UT) eCW1 ([facility]) MetFORMIN HCl ER 500 MG MetFORMIN HCl ER 500 MG 06/20/2019 12:00:00 AM EST 1.0 {tablet_with_evening_meal} active MetFO RMIN HCl ER 500 MG eCW1 ([facility]) Cholecalciferol 5000 UNT Oral Capsule Vitamin D 125 MC G (5000 UT) Vitamin D 125 MCG (5000 UT) 06/20/2019 12:00:00 AM EST acti ve Vitamin D 125 MCG (5000 UT) eCW1 ([facility]) MetFORMIN HCl ER 500 MG MetFORMIN HCl ER 500 MG 06/20/2019 12:00:00 AM EST 1.0 {tablet_with_evening_meal} active MetFO RMIN HCl ER 500 MG eCW1 ([facility]) Cholecalciferol 5000 UNT Oral Capsule Vitamin D 125 MC G (5000 UT) Vitamin D 125 MCG (5000 UT) 06/20/2019 12:00:00 AM EST acti ve Vitamin D 125 MCG (5000 UT) eCW1 ([facility]) Cholecalciferol 5000 UNT Oral Capsule Vitamin D 125 MC G (5000 UT) Vitamin D 125 MCG (5000 UT) 06/20/2019 12:00:00 AM EST acti ve Vitamin D 125 MCG (5000 UT) eCW1 ([facility]) MetFORMIN HCl ER 500 MG MetFORMIN HCl ER 500 MG 06/20/2019 12:00:00 A M EST active 1 tablet with evenin g meal eCW1 ([facility]) MetFORMIN HCl ER 500 MG MetFORMIN HCl ER 500 MG 06/20/2019 12:00:00 AM EST 1.0 {tablet_with_evening_meal} active MetFO RMIN HCl ER 500 MG eCW1 ([facility]) MetFORMIN HCl ER 500 MG MetFORMIN HCl ER 500 MG 06/20/2019 12:00:00 AM EST 1.0 {tablet_with_evening_meal} active MetFO RMIN HCl ER 500 MG eCW1 ([facility]) 24 HR Metformin hydrochloride 500 MG Ext ended Release Oral Tablet MetFORMIN HCl ER 500 MG MetFORMIN HCl ER 500 MG 06/20/2019 12:00:00 AM EST 1.0 {tablet_with_evening_meal} active MetFO RMIN HCl ER 500 MG eCW1 ([facility]) 24 HR Metformin hydrochloride 500 MG Ext ended Release Oral Tablet MetFORMIN HCl ER 500 MG MetFORMIN HCl ER 500 MG 06/20/2019 12:00:00 AM EST 1.0 {tablet_with_evening_meal} suspended Met FORMIN HCl ER 500 MG eCW1 ([facility]) Ergocalciferol 90755 UNT Oral Capsule Ergocalciferol 1 .25 MG (35990 UT) Ergocalciferol 1.25 MG (76522 UT) 05/09/2019 12:00:00 AM EST 1.0 {c apsule} active Ergocalciferol 1.25 MG (5 0000 UT) eCW1 ([facility]) Ergocalciferol 85320 UNT Oral Capsule Ergocalciferol 1 .25 MG (97248 UT) Ergocalciferol 1.25 MG (58644 UT) 05/09/2019 12:00:00 AM EST 1.0 {c apsule} active Ergocalciferol 1.25 MG (5 0000 UT) eCW1 ([facility]) Ergocalciferol 75418 UNT Oral Capsule Ergocalciferol 1 .25 MG (22574 UT) Ergocalciferol 1.25 MG (89883 UT) 05/09/2019 12:00:00 AM EST 1.0 {c apsule} active Ergocalciferol 1.25 MG (5 0000 UT) eCW1 ([facility]) Ergocalciferol 18712 UNT Oral Capsule Ergocalciferol 1 .25 MG (99185 UT) Ergocalciferol 1.25 MG (31866 UT) 05/09/2019 12:00:00 AM EST 1.0 {c apsule} active Ergocalciferol 1.25 MG (5 0000 UT) eCW1 ([facility]) Ergocalciferol 44827 UNT Oral Capsule Ergocalciferol 1 .25 MG (83529 UT) Ergocalciferol 1.25 MG (34074 UT) 05/09/2019 12:00:00 AM EST 1.0 {c apsule} active Ergocalciferol 1.25 MG (5 0000 UT) eCW1 ([facility]) Ergocalciferol 73817 UNT Oral Capsule Ergocalciferol 1 .25 MG (27443 UT) Ergocalciferol 1.25 MG (81222 UT) 05/09/2019 12:00:00 AM EST 1.0 {c apsule} active Ergocalciferol 1.25 MG (5 0000 UT) eCW1 ([facility]) Ergocalciferol 58920 UNT Oral Capsule Ergocalciferol 1 .25 MG (89915 UT) Ergocalciferol 1.25 MG (23221 UT) 05/09/2019 12:00:00 AM EST 1.0 {c apsule} active Ergocalciferol 1.25 MG (5 0000 UT) eCW1 ([facility]) Ergocalciferol 94595 UNT Oral Capsule Ergocalciferol 1 .25 MG (07149 UT) Ergocalciferol 1.25 MG (55898 UT) 05/09/2019 12:00:00 AM EST 1.0 {c apsule} active Ergocalciferol 1.25 MG (5 0000 UT) W ([facility]) Ergocalciferol 93984 UNT Oral Capsule Ergocalciferol 1 .25 MG (64451 UT) Ergocalciferol 1.25 MG (85670 UT) 05/09/2019 12:00:00 AM EST active 1 capsule eCW1 (Counts include 234 beds at the [facility]) Ergocalciferol 53166 UNT Oral Capsule Ergocalciferol 1 .25 MG (16368 UT) Ergocalciferol 1.25 MG (20791 UT) 05/09/2019 12:00:00 AM EST 1.0 {c apsule} suspended Ergocalciferol 1.25 MG (5 0000 UT) eCW ([facility]) Ergocalciferol 39074 UNT Oral Capsule Ergocalciferol 1 .25 MG (82512 UT) Ergocalciferol 1.25 MG (34248 UT) 05/09/2019 12:00:00 AM EST 1.0 {c apsule} active Ergocalciferol 1.25 MG (5 0000 UT) eCW ([facility]) Ergocalciferol 42208 UNT Oral Capsule Ergocalciferol 1 .25 MG (56701 UT) Ergocalciferol 1.25 MG (77406 UT) 05/09/2019 12:00:00 AM EST 1.0 {c apsule} active Ergocalciferol 1.25 MG (5 0000 UT) W ([facility]) Ergocalciferol 97604 UNT Oral Capsule Ergocalciferol 1 .25 MG (71653 UT) Ergocalciferol 1.25 MG (48270 UT) 05/09/2019 12:00:00 AM EST 1.0 {c apsule} active Ergocalciferol 1.25 MG (5 0000 UT) eCW1 ([facility]) Ergocalciferol 97277 UNT Oral Capsule Ergocalciferol 1 .25 MG (43919 UT) Ergocalciferol 1.25 MG (44063 UT) 05/09/2019 12:00:00 AM EST 1.0 {c apsule} active Ergocalciferol 1.25 MG (5 0000 UT) eCW1 ([facility]) Ergocalciferol 58554 UNT Oral Capsule Ergocalciferol 1 .25 MG (57604 UT) Ergocalciferol 1.25 MG (52014 UT) 05/09/2019 12:00:00 AM EST 1.0 {c apsule} active Ergocalciferol 1.25 MG (5 0000 UT) eCW1 ([facility]) Ergocalciferol 71976 UNT Oral Capsule Ergocalciferol 1 .25 MG (59007 UT) Ergocalciferol 1.25 MG (52892 UT) 05/09/2019 12:00:00 AM EST 1.0 {c apsule} active Ergocalciferol 1.25 MG (5 0000 UT) eCW1 ([facility]) Insurance Providers Payer name Policy type / Coverage type Policy ID Covered alliance party ID Covered alliance party's relationship to contreras Policy Contreras Plan Information MEDICARE BLUE PPO 306 [id number] SP [id number] MEDICARE BLUE PPO 306 [id number] SP [id number] [facility] B [id number] S [id number] MEDICARE [id number] SP [id number] ANSI-Medicare Part B [id number] ANSI-Medicare Part B [id number] [facility] Part B [id number] Family Dependent [id number] [place] Part B [id number] Self [id number] BS Exchange (Epo,Hmo,Ppo) Commercial [id number] Self [id number] Medicare (Part B) Medicare Primary [id number] Self [id number] BCBS Medicare Blue U/W Commercial [id number] Self [id number] Medicare (Part B) Medicare Primary [id number] Self [id number] BCBS Medicare Blue U/W Commercial [id number] Self [id number] ANSI-Medicare Part B [id number] ANSI-Medicare Part B [id number] ANSI-Medicare Part B [id number] ANSI-Medicare Part B [id number] ANSI-Medicare Part B [id number] Medicare Natl Gov't Servi Medicare Primary [id number] Self [id number] ANSI-Medicare Part B [id number] ANSI-Medicare Part B [id number] ANSI-Medicare Part B [id number] ANSI-Medicare Part B [id number] MEDICARE [id number] SP [id number] ANSI-Medicare Part B [id number] ANSI-Medicare Part B [id number] ANSI-Medicare Part B [id number] ANSI-Medicare Part B [id number] Medicare (Part B) Medicare Primary [id number] Self [id number] ANSI-Medicare Part B [id number] ANSI-Medicare Part B [id number] Medicare (Part B) Medicare Primary [id number] Self [id number] Medicare (Part B) Medicare Primary [id number] Self [id number] Medicare Part B Medicare Primary [id number] Self [id number] MEDICARE [id number] SP [id number] A Medicare Part B Medicare Primary [id number] Self [id number] Medicare (Part B) Medicare Primary [id number] Self [id number] MEDICARE [id number] Anitha [id number] A Medicare (Part B) Medicare Primary [id number] Self [id number] MEDICARE C [id number] S [id number] A MEDICARE A [id number] Self [id number] A MEDICARE PI PI [id number] A Problems, Conditions, and Diagnoses Code Display Name Description Problem Type Effective Dates Data Source(s) R93.89 [id number] Abnormal finding on CT scan Problem 11/14/19 12:00:00 AM EDT eCW1 ([facility]) Surgeries/Procedures Procedure Description Date Indications Data Source(s) Immunization: Boostrix 0.5mL IM (TDAP) 05/27/2020 12:0 0:00 AM EST eCW1 ([facility]) Immunization: Flublok Quadrivalent (18 years & older) 0.5mL IM (Influenza) 03/26/2020 12:00:00 AM EDT eCW1 ([facility]) ECG ROUTINE ECG W/LEAST 12 LDS W/I&R 12/10/2019 12:00: 00 AM EDT MEDENT ([facility]) THER/PROPH/DIAG INJ, SC/IM 08/18/2019 12:00:00 AM EDT eCW1 ([facility]) Injection, denosumab, 1 mg 08/18/2019 12:00:00 AM EDT eCW1 ([facility]) MYOCARDIAL SPECT MULTIPLE STUDIES 07/22/2019 12:00:00 AM EST MEDENT ([facility]) CV STRS TST XERS&/OR RX CONT ECG PHYS SI&R 07/22/2019 12:00:00 AM EST MEDENT ([facility]) ECG ROUTINE ECG W/LEAST 12 LDS W/I&R 06/16/2019 12:00: 00 AM EST MEDENT ([facility]) Annual wellness visit, includes a person alized prevention plan of service (pps), subsequent visit 05/09/2019 12:00:00 AM EST eCW1 ([facility]) Office Visit, Est Pt., Level 3 PC 05/09/2019 12:00:00 AM EST eCW1 ([facility]) Office Visit, Est Pt., Level 2 FC 05/09/2019 12:00:00 AM EST eCW1 ([facility]) Pneumococcal Adult 0.5mL (Pneumovax 23) 05/09/2019 12: 00:00 AM EST eCW1 ([facility]) IMMUNIZATION ADMIN 05/09/2019 12:00:00 AM EST eCW1 ([facility]) Results ID Date Data Source Comprehensive Metabolic Profile (CMP) 04/20/2020 12:00:00 AM EST eCW1 ([facility]) Name Value Range Interpretation Code Description Data Anita rce(s) Supporting Document(s) 87 70-100 GLUCOSE, FASTING eCW1 ([facility]) > 60.0 >45 GLOMERULAR FILTRATION RATE eCW 1 ([facility]) 137 136-145 SODIUM LEVEL eCW1 ([facility]) 13 7-18 BLOOD UREA NITROGEN eCW1 ([facility]) 0.71 0.55-1.30 CREATININE FOR GFR eCW1 ([facility]) 102 98-107 CHLORIDE LEVEL eCW1 ([facility]) 5.0 3.5-5.1 POTASSIUM SERUM eCW1 ([facility]) 28 21-32 CARBON DIOXIDE LEVEL eCW1 ([facility]) 9.6 8.8-10.2 CALCIUM LEVEL eCW1 ([facility]) 1.1 0.2-1.0 BILIRUBIN,TOTAL eCW1 ([facility]) 42 12-78 ALT/SGPT eCW1 ([facility]) 187 45-117 ALKALINE PHOSPHATASE eCW1 ([facility]) 22 7-37 AST/SGOT eCW1 ([facility]) 6.8 6.4-8.2 TOTAL PROTEIN eCW1 ([facility]) 2.7 3.2-5.2 ALBUMIN eCW1 ([facility]) 0.7 1.2-2.2 ALBUMIN/GLOBULIN RATIO eCW1 ([facility]) ID Date Data Source CBC with Differential 04/20/2020 12:00:00 AM EST eCW1 ([facility]) Name Value Range Interpretation Code Description Data Anita rce(s) Supporting Document(s) 13.9 4.0-10.0 WHITE BLOOD COUNT eCW1 ([facility]) 4.98 4.00-5.40 RED BLOOD COUNT eCW1 ([facility]) 46.6 36.0-47.0 HEMATOCRIT eCW1 ([facility], 1928[facility]1983) 15.0 12.0-15.5 HEMOGLOBIN eCW1 ([facility], 1928[facility]1983) 14.2 11.5-14.5 RED CELL DISTRIBUTION WID TH eCW1 ([facility]) 30.1 27.0-33.0 MEAN CORPUSCULAR HEMOGLOB IN eCW1 ([facility]) 32.2 32.0-36.5 MEAN CORPUSCULAR HGB CONC eCW1 ([facility]) 93.6 80.0-96.0 MEAN CORPUSCULAR VOLUME e CW1 ([facility]) 6.4 0.0-5.0 MONO % eCW1 ([facility]) 67.3 36.0-66.0 NEUTROPHILS % eCW1 ([facility]) 22.1 24.0-44.0 LYMPH % eCW1 ([facility]) 543 150-450 PLATELET COUNT, AUTOMATED eCW1 ([facility]) 3.1 1.5-5.0 LYMPH # eCW1 ([facility]) 0.9 0.0-0.8 MONO # eCW1 ([facility]) 0.7 0.0-1.0 BASO % eCW1 ([facility]) 0.8 0.0-3.0 EOS % eCW1 ([facility]) 9.3 1.5-8.5 NEUTROPHILS # eCW1 ([facility]) 0.1 0.0-0.5 EOS # eCW1 ([facility]) 0.1 0.0-0.2 BASO # eCW1 ([facility]) ID Date Data Source BLOOD CULTURES 04/20/2020 12:00:00 AM EST eCW1 ([facility]) Name Value Range Interpretation Code Description Data Anita rce(s) Supporting Document(s) BLOOD CULTURES eCW1 ([facility]) ID Date Data Source PLZ CHEST 2 VIEW 04/20/2020 12:00:00 AM EST eCW1 ([facility]) Name Value Range Interpretation Code Description Data Anita rce(s) Supporting Document(s) PLZ CHEST 2 VIEW eCW1 ([facility]) ID Date Data Source LACTIC ACID LEVEL, LACTATE 04/20/2020 12:00:00 AM EST eCW1 ( [facility]) Name Value Range Interpretation Code Description Data Anita rce(s) Supporting Document(s) LACTIC ACID LEVEL, LACTATE eCW 1 ([facility]) ID Date Data Source [id number] 04/20/2020 12:00:00 AM EST [facility] Name Value Range Interpretation Code Description Data Anita rce(s) Supporting Document(s) SARS-CoV2 Rapid Antigen [facility] This lab was ordered by [facility] and reported by [facility]. ID Date Data Source [id number] 09/05/2019 03:02:00 PM EDT MEDENT ([facility]) Name Value Range Interpretation Code Description Data Anita rce(s) Supporting Document(s) Hemoglobin A1c/Hemoglobin.total in Blood 6.3 MEDENT ([facility]) ID Date Data Source [id number] 2019 09:33:00 AM EST MEDENT ([facility]) Name Value Range Interpretation Code Description Data Anita rce(s) Supporting Document(s) Triglycerides 90 MEDENT ([facility]) Cholesterol 226 MEDENT ([facility]) HDL 60 MEDENT ([facility] Cholesterol in LDL [Mass/volume] in Serum or Plasma by calculation 14 8 MEDENT ([facility]) Chol/HDL Ratio 3.766 MEDENT ([facility]) ID Date Data Source [id number] 2019 09:33:00 AM EST MEDENT ([facility]) Name Value Range Interpretation Code Description Data Anita rce(s) Supporting Document(s) Calcium [Mass/volume] in Serum or Plasma 9.1 MEDENT ([facility]) Alanine aminotransferase [Enzymatic activity/volume] in Serum or Pl asma 18 MEDENT ([facility]) Albumin [Mass/volume] in Serum or Plasma 3.6 MEDENT ([facility]) Chloride [Moles/volume] in Serum or Plasma 108 MEDENT ([facility]) Alkaline phosphatase [Enzymatic activity/volume] in Serum or Plasma 1 63 MEDENT ([facility]) Carbon dioxide, total [Moles/volume] in Serum or Plasma 30 MEDENT ([facility]) Sodium 142 MEDENT ([facility] Protein [Mass/volume] in Serum or Plasma 7.2 MEDENT ([facility]) Potassium [Moles/volume] in Serum or Plasma 5.3 MEDENT ([facility]) Aspartate aminotransferase [Enzymatic activity/volume] in Serum or Plasma 8 MEDENT ([facility]) Urea nitrogen [Mass/volume] in Serum or Plasma 15 MEDENT ([facility]) Glucose 104 70-100 MEDENT ([facility]) Creatinine For GFR 0.81 MEDENT ([facility]) Procedure Social History Code Duration Value Status Description Data Source(s ) Smoking 05/27/2020 12:00:00 AM EST Current Smoker completed Curre nt Smoker eCW1 ([facility]) Smoking 05/27/2020 12:00:00 AM EST Current Smoker completed Curre nt Smoker eCW1 ([facility]) Smoking 05/27/2020 12:00:00 AM EST Current Smoker completed Curre nt Smoker eCW1 ([facility]) Smoking 05/27/2020 12:00:00 AM EST Current Smoker completed Curre nt Smoker eCW1 ([facility]) Smoking 04/21/2020 12:00:00 AM EST Current Smoker completed Curre nt Smoker eCW1 ([facility]) Smoking 04/21/2020 12:00:00 AM EST Current Smoker completed Curre nt Smoker eCW1 ([facility]) Smoking 04/21/2020 12:00:00 AM EST Current Smoker completed Curre nt Smoker eCW1 ([facility]) Smoking 04/21/2020 12:00:00 AM EST Current Smoker completed Curre nt Smoker eCW1 ([facility]) Smoking 03/26/2020 12:00:00 AM EDT Current Smoker completed Curre nt Smoker eCW1 ([facility]) Smoking 11/15/2019 12:00:00 AM EDT Current Smoker completed Curre nt Smoker eCW1 ([facility]) Smoking 11/15/2019 12:00:00 AM EDT Current Smoker completed Curre nt Smoker eCW1 ([facility]) Smoking 11/15/2019 12:00:00 AM EDT Current Smoker completed Curre nt Smoker eCW1 ([facility]) Smoking 11/15/2019 12:00:00 AM EDT Current Smoker completed Curre nt Smoker eCW1 ([facility]) Smoking 11/15/2019 12:00:00 AM EDT Current Smoker completed Curre nt Smoker eCW1 ([facility]) Smoking 06/20/2019 12:00:00 AM EST Current Smoker completed Curre nt Smoker eCW1 ([facility]) Vital Signs ID Date Data Source [id number] Name Value Range Interpretation Code Description Data Source(s) Diastolic blood pressure 68 mm[Hg] 68 mm[Hg] eCW1 ([facility]) Systolic blood pressure 122 mm[Hg] 122 mm[Hg] e CW1 ([facility]) Body temperature 97.3 [degF] 97.3 [degF] eCW1 ( [facility]) Respiratory rate 18 /min 18 /min eCW1 ([facility]) Heart rate 78 /min 78 /min eCW1 ([facility]) Body mass index (BMI) [Ratio] 28.14 kg/m2 28.14 kg/m2 eCW1 ([facility]) Body height 61.5 [in_i] 61.5 [in_i] eCW1 ([facility]) Body weight 151.4 [lb_av] 151.4 [lb_av] eCW1 ([facility]) Diastolic blood pressure 78 mm[Hg] 78 mm[Hg] eCW1 ([facility]) Systolic blood pressure 115 mm[Hg] 115 mm[Hg] e CW1 ([facility]) Body temperature 99.1 [degF] 99.1 [degF] eCW1 ( [facility]) Respiratory rate 16 /min 16 /min eCW1 ([facility]) Heart rate 89 /min 89 /min eCW1 ([facility]) Body mass index (BMI) [Ratio] 27.88 kg/m2 27.88 kg/m2 eCW1 ([facility]) Body height 61.5 [in_i] 61.5 [in_i] eCW1 ([facility]) Body weight 150 [lb_av] 150 [lb_av] eCW1 ([facility]) Diastolic blood pressure 78 mm[Hg] 78 mm[Hg] eCW1 ([facility]) Systolic blood pressure 115 mm[Hg] 115 mm[Hg] e CW1 ([facility]) Body temperature 99.1 [degF] 99.1 [degF] eCW1 ( [facility]) Respiratory rate 16 /min 16 /min eCW1 ([facility]) Heart rate 89 /min 89 /min eCW1 ([facility]) Body mass index (BMI) [Ratio] 27.88 kg/m2 27.88 kg/m2 W1 ([facility]) Body height 61.5 [in_i] 61.5 [in_i] eCW1 ([facility]) Body weight 150 [lb_av] 150 [lb_av] eCW1 ([facility]) Heart rate 75 /min 75 /min eCW1 ([facility]) Body mass index (BMI) [Ratio] 28.96 kg/m2 28.96 kg/m2 eCW1 ([facility]) Body height 61.5 [in_i] 61.5 [in_i] eCW1 ([facility]) Body weight 155.8 [lb_av] 155.8 [lb_av] eCW1 ([facility]) Diastolic blood pressure 72 mm[Hg] 72 mm[Hg] eCW1 ([facility]) Systolic blood pressure 120 mm[Hg] 120 mm[Hg] e CW1 ([facility]) Body temperature 97.2 [degF] 97.2 [degF] eCW1 ( [facility]) Respiratory rate 18 /min 18 /min eCW1 ([facility]) Diastolic blood pressure 62 mm[Hg] 62 mm[Hg] MEDENT ([facility]) sitting Systolic blood pressure 126 mm[Hg] 126 mm[Hg] M EDENT ([facility]) sitting Diastolic blood pressure 66 mm[Hg] 66 mm[Hg] MEDENT ([facility]) sitting, regular cuff Systolic blood pressure 126 mm[Hg] 126 mm[Hg] M EDENT ([facility]) sitting, regular cuff Respiratory rate 16 /min 16 /min MEDENT ( [facility]) Heart rate 64 /min 64 /min MEDENT ([facility] Regular Body mass index (BMI) [Ratio] 28.0 kg/m2 28.0 k g/m2 MEDENT ([facility]) Body height 62 [in_i] 62 [in_i] MEDENT ([facility]) 5'2" Body weight 153.00 [lb_av] 153.00 [lb_av] MEDEN T ([facility]) Diastolic blood pressure 80 mm[Hg] 80 mm[Hg] MEDENT ([facility]) Sitting Systolic blood pressure 132 mm[Hg] 132 mm[Hg] M EDENT ([facility]) Sitting Diastolic blood pressure 80 mm[Hg] 80 mm[Hg] MEDENT ([facility]) Sitting, regular cuff Systolic blood pressure 136 mm[Hg] 136 mm[Hg] M EDENT ([facility]) Sitting, regular cuff Respiratory rate 16 /min 16 /min MEDENT ( [facility]) Heart rate 64 /min 64 /min MEDENT ([facility]) Regular Body mass index (BMI) [Ratio] 29.4 kg/m2 29.4 k g/m2 MEDENT ([facility]) Body height 62 [in_i] 62 [in_i] MEDENT ([facility]) 5'2" Body weight 161.00 [lb_av] 161.00 [lb_av] MEDEN T ([facility]) Diastolic blood pressure 74 mm[Hg] 74 mm[Hg] eCW1 ([facility]) Systolic blood pressure 130 mm[Hg] 130 mm[Hg] e CW1 ([facility]) Body temperature 97.9 [degF] 97.9 [degF] eCW1 ( [facility]) Respiratory rate 18 /min 18 /min eCW1 ([facility]) Heart rate 90 /min 90 /min eCW1 ([facility]) Body mass index (BMI) [Ratio] 29.92 kg/m2 29.92 kg/m2 eCW1 ([facility]) Body height 61.5 [in_us] 61.5 [in_us] eCW1 ([facility]) Body weight Measured 161.0 [lb_av] 161.0 [lb_av ] eCW1 ([facility]) Patient Treatment Plan of Care Planned Activity Planned Date Details Description Data Source (s) Shingrix 50 mcg/0.5 mL 05/27/2020 12:00:00 AM EST eCW1 ([facility]) Shingrix 50 mcg/0.5 mL 05/27/2020 12:00:00 AM EST eCW1 ([facility]) Shingrix 50 mcg/0.5 mL 05/27/2020 12:00:00 AM EST eCW1 ([facility]) Shingrix 50 mcg/0.5 mL 05/27/2020 12:00:00 AM EST eCW1 ([facility]) Augmentin 875-125 MG 04/21/2020 12:00:00 AM EST eCW1 ([facility]) Augmentin 875-125 MG 04/21/2020 12:00:00 AM EST eCW1 ([facility]) Augmentin 875-125 MG 04/21/2020 12:00:00 AM EST eCW1 ([facility]) Augmentin 875-125 MG 04/21/2020 12:00:00 AM EST eCW1 ([facility]) Acetaminophen 300 MG / Codeine Phosphate 30 MG Oral Ta blet 03/30/2020 12:00:00 AM EST eCW1 ([facility]) Prednisone 10 MG Oral Tablet 03/26/2020 12:00:00 AM EDT eCW1 ([facility]) Metformin hydrochloride 500 MG Oral Tablet 11/14/2019 12:00:00 AM E DT eCW1 ([facility]) Metformin hydrochloride 500 MG Oral Tablet 11/14/2019 12:00:00 AM E DT eCW1 ([facility]) Metformin hydrochloride 500 MG Oral Tablet 11/14/2019 12:00:00 AM E DT eCW1 ([facility]) Metformin hydrochloride 500 MG Oral Tablet 11/14/2019 12:00:00 AM E DT eCW1 ([facility]) Metformin hydrochloride 500 MG Oral Tablet 11/14/2019 12:00:00 AM E DT eCW1 ([facility]) Metformin hydrochloride 500 MG Oral Tablet 11/14/2019 12:00:00 AM E DT eCW1 ([facility]) MetFORMIN HCl ER 500 MG 06/20/2019 12:00:00 AM EST eCW1 ([facility]) Cholecalciferol 5000 UNT Oral Capsule 06/20/2019 12:00:00 AM EST eCW1 ([facility]) MetFORMIN HCl ER 500 MG 06/20/2019 12:00:00 AM EST eCW1 ([facility]) Ergocalciferol 24324 UNT Oral Capsule 05/09/2019 12:00:00 AM EST eCW1 ([facility]) Ergocalciferol 64598 UNT Oral Capsule 05/09/2019 12:00:00 AM EST eCW1 ([facility]) Ergocalciferol 90705 UNT Oral Capsule 05/09/2019 12:00:00 AM EST eCW1 ([facility]) Ergocalciferol 71530 UNT Oral Capsule 05/09/2019 12:00:00 AM EST eCW1 ([facility]) Ergocalciferol 75689 UNT Oral Capsule 05/09/2019 12:00:00 AM EST eCW1 ([facility])
[2020-06-12] MEDS ORDERED: NS 1,000 ML IV ONE (11:45)
[2020-06-12] MEDS ORDERED: KETOROLAC 30 MG/ML 1ML VIAL IV ONE (11:45)
[2020-06-12] MEDS ORDERED: ONDANSETRON 4MG/2ML VIAL IV ONE (11:45)
[2020-06-12 12:01] LABS: BASO # 0.1 10^3/uL (0.0-0.2); BASO % 0.3 % (0.0-1.0); EOS # 0.3 10^3/uL (0.0-0.5); EOS % 1.8 % (0.0-3.0); HEMATOCRIT 45.1 % (36.0-47.0); HEMOGLOBIN 14.5 g/dl (12.0-15.5); LYMPH % 19.6 % (24.0-44.0); MEAN CORPUSCULAR HEMOGLOBIN 29.7 pg (27.0-33.0); MEAN CORPUSCULAR HGB CONC 32.2 g/dl (32.0-36.5); MEAN CORPUSCULAR VOLUME 92.2 fl (80.0-96.0); MONO # 0.9 10^3/uL (0.0-0.8); MONO % 5.9 % (0.0-5.0); NEUTROPHILS # 10.9 10^3/uL (1.5-8.5); NEUTROPHILS % 71.8 % (36.0-66.0); PLATELET COUNT, AUTOMATED 595 10^3/uL (150-450); RED BLOOD COUNT 4.89 10^6/uL (4.00-5.40); WHITE BLOOD COUNT 15.2 10^3/uL (4.0-10.0)
[2020-06-12 12:17] LABS: INR 0.89; PROTHROMBIN TIME 12.3 SECONDS (12.5-14.3)
[2020-06-12 12:18] LABS: PARTIAL THROMBOPLASTIN TIME 30.9 SECONDS (24.2-38.5)
[2020-06-12 12:31] LABS: ALBUMIN 2.7 GM/DL (3.2-5.2); ALT/SGPT 21 U/L (12-78); BILIRUBIN,DIRECT < 0.1 MG/DL (0.0-0.2); BILIRUBIN,TOTAL 0.2 MG/DL (0.2-1.0); LIPASE 135 U/L (73-393); TOTAL PROTEIN 6.5 GM/DL (6.4-8.2)
--- NOTE | 2020-06-12 12:33 | REP ---
INDICATION: ruq pain/vomiting. COMPARISON: None. TECHNIQUE: Real-time sonographic evaluation of right upper quadrant performed. FINDINGS: There is gallbladder wall thickening diffusely up to 12 mm. Multiple gallstones are seen the gallbladder. There is no pericholecystic fluid.. There is no intrahepatic or extrahepatic biliary dilatation, common bile duct measures 5 mm in maximum diameter. There is heterogeneous increased echotexture of the liver compatible with diffuse fatty infiltration. Pancreas is not seen due to overlying bowel gas. The right kidney demonstrates no hydronephrosis, with a normal size of 9.1 cm in length. There is a cyst in the lower pole 1.4 cm in diameter.No free fluid is seen. IMPRESSION: Multiple gallstones in the gallbladder with significant diffuse gallbladder wall thickening. No free fluid or biliary dilatation. Diffuse fatty infiltration of the liver. <Electronically signed by Franklin Tripp > 06/12/20 [id number]
--- OUTSIDE RECORDS SUMMARY | 2020-06-12 12:35 | CCD ---
Author Author [facility] Organization [facility] Address Unknown Phone Unavailable Care Team Providers Care Oxygen Therapy Technician Name Role Phone JdenowAleida PA Unavailable Unavailable [...] is protected by Article 27-F of the [facility] Public Health law. If you continue you may have access to information: Regarding HIV / AIDS; Provided by facilities licensed or operated by the [facility] Office of Mental Health; or Provided by the [facility] Office for People With Developmental Disabilities. If such information is present, then the following [facility] mandated warning applies: This information has been [...] law may result in a fine or halfway sentence or both. A general authorization for the release of medical or other information is NOT sufficient authorization for further disc losure. Allergies and Adverse Reactions Type Description Substance Reaction Status Data Source(s ) Drug allergy Atorvastatin Calcium atorvastatin myalgias Active eCW1 ([facility]) Drug allergy Brilinta Ticagrelor intracerebral hemorrhage Active eCW1 ([facility]) Family History Family Member Name Family Member Gender Family Member Status Date o f Status Description Data Source(s) Unknown Male Problem MEDENT ([facility]) Unknown Male Problem MEDENT ([facility]) age 84 Encounters Encounter Providers Location Date Indications Data Source(s ) Unknown [address] [facility] [place] [address] 06/09/2020 12:00:00 AM EST eCW1 ([facility]) Unknown [address] [facility] [place] [address] 06/01/2020 12:00:00 AM EST eCW1 [facility] Outpatient [address] [facility] [place] [address] 05/27/2020 12:00:00 AM EST eCW1 ([facility]) Unknown [address] [facility] [place] [address] 04/21/2020 12:00:00 AM EST eCW1 [facility] Office Visit, Est Pt., Level 3 [address] [place] [address] 04/20/2020 12:00:00 AM EST eCW1 ([facility]) [place] [address] [facility] [place] [address] 04/19/2020 12:00:00 AM EST eCW1 ([facility] [place] [address] [facility] [place] [address] 03/29/2020 12:00:00 AM EST eCW1 ([facility] [place] [address] [facility] [place] [address] 03/26/2020 12:00:00 AM EDT eCW1 ([facility]) Unknown [address] [facility] [place] [address] 03/08/2020 12:00:00 AM EDT eCW1 ([facility]) Unknown [address] [facility] [place] [address] 03/03/2020 12:00:00 AM EDT eCW1 ([facility]) [place] [address] [facility] [place] [address] 03/03/2020 12:00:00 AM EDT eCW1 ([facility]) [place] [address] [facility] [address] 02/26/2020 12:00:00 AM EDT [facility] [place] [address] [facility] [place] [address] 12/16/2019 12:00:00 AM EDT eCW1 ([facility]) Outpatient Attender: Marielle BARAKAT Main Office 12/10/2019 11:30:00 AM EDT MEDENT ([facility] Outpatient Referrer: Mannie Paula MD 11/26/2019 05: 46:00 AM EDT [facility] [place] [address] [facility] [address] 11/12/2019 12:00:00 AM EDT eCW1 ([facility]) [facility] [address] [facility] [address] 09/18/2019 12:00:00 AM EDT eCW1 ([facility]) [facility] [address] [facility] [place] [address] 09/08/2019 12:00:00 AM EDT eCW1 ([facility]) [facility] [address] [facility] [place] [address] 09/05/2019 12:00:00 AM EDT eCW1 ([facility]) [facility] [address] [facility] [place] [address] 08/18/2019 12:00:00 AM EDT eCW1 ([facility]) [facility] [address] [facility] [place] [address] 07/31/2019 12:00:00 AM EST eCW1 ([facility]) Outpatient Referrer: Mannie Paula MD 07/10/2019 12: 35:00 PM EST [facility] [address] [place] [address] 06/20/2019 12:00:00 AM EST eCW1 ([facility]) Outpatient Attender: Marielle BARAKAT Main Office 06/16/2019 10:30:00 AM EST MEDENT ([facility]) [facility] [place] [address] [facility] [address] 06/02/2019 12:00:00 AM EST eCW1 ([facility]) [facility] [address] [facility] [address] 05/09/2019 12:00:00 AM EST eCW1 ([facility]) Immunizations Vaccine Date Status Description Data Source(s) Tdap 05/27/2020 02:39:00 PM EST completed e CW1 ([facility]) Tdap 05/27/2020 02:39:00 PM EST completed e CW1 ([facility]) Tdap 05/27/2020 02:39:00 PM EST completed e CW1 ([facility]) Tdap 05/27/2020 02:39:00 PM EST completed e CW1 ([facility]) influenza, recombinant, quadrIvalent,injectable, prese rvative free 03/26/2020 05:02:00 PM EDT completed eCW1 ([facility]) influenza, recombinant, quadrIvalent,injectable, prese rvative free 03/26/2020 05:02:00 PM EDT completed eCW1 ([facility]) influenza, recombinant, quadrIvalent,injectable, prese rvative free 03/26/2020 05:02:00 PM EDT completed eCW1 ([facility]) influenza, recombinant, quadrIvalent,injectable, prese rvative free 03/26/2020 05:02:00 PM EDT completed eCW1 ([facility]) influenza, recombinant, quadrIvalent,injectable, prese rvative free 03/26/2020 05:02:00 PM EDT completed eCW1 ([facility]) influenza, recombinant, quadrIvalent,injectable, prese rvative free 03/26/2020 05:02:00 PM EDT completed eCW1 ([facility]) influenza, recombinant, quadrIvalent,injectable, prese rvative free 03/26/2020 05:02:00 PM EDT completed eCW1 ([facility]) influenza, recombinant, quadrIvalent,injectable, prese rvative free 03/26/2020 05:02:00 PM EDT completed eCW1 ([facility]) influenza, recombinant, quadrIvalent,injectable, prese rvative free 03/26/2020 05:02:00 PM EDT completed eCW1 ([facility]) Prolia 60mg/1mL (Denosumab) 08/18/2019 02:17:00 PM EDT completed eCW1 ([facility]) Prolia 60mg/1mL (Denosumab) 08/18/2019 02:17:00 PM EDT completed eCW1 ([facility]) Prolia 60mg/1mL (Denosumab) 08/18/2019 02:17:00 PM EDT completed eCW1 ([facility]) Prolia 60mg/1mL (Denosumab) 08/18/2019 02:17:00 PM EDT completed eCW1 ([facility]) Prolia 60mg/1mL (Denosumab) 08/18/2019 02:17:00 PM EDT completed eCW1 ([facility]) Prolia 60mg/1mL (Denosumab) 08/18/2019 02:17:00 PM EDT completed eCW1 ([facility]) Prolia 60mg/1mL (Denosumab) 08/18/2019 02:17:00 PM EDT completed eCW1 ([facility]) Prolia 60mg/1mL (Denosumab) 08/18/2019 02:17:00 PM EDT completed eCW1 ([facility]) Prolia 60mg/1mL (Denosumab) 08/18/2019 02:17:00 PM EDT completed eCW1 ([facility]) Prolia 60mg/1mL (Denosumab) 08/18/2019 02:17:00 PM EDT completed eCW1 ([facility]) Prolia 60mg/1mL (Denosumab) 08/18/2019 02:17:00 PM EDT completed eCW1 ([facility]) Prolia 60mg/1mL (Denosumab) 08/18/2019 02:17:00 PM EDT completed eCW1 ([facility]) Prolia 60mg/1mL (Denosumab) 08/18/2019 02:17:00 PM EDT completed eCW1 ([facility]) Prolia 60mg/1mL (Denosumab) 08/18/2019 02:17:00 PM EDT completed eCW1 ([facility]) Prolia 60mg/1mL (Denosumab) 08/18/2019 02:17:00 PM EDT completed eCW1 ([facility]) pneumococcal polysaccharide PPV23 05/09/2019 05:31:00 PM EST comple bridgette eCW1 ([facility]) pneumococcal polysaccharide PPV23 05/09/2019 05:31:00 PM EST comple bridgette eCW1 ([facility]) pneumococcal polysaccharide PPV23 05/09/2019 05:31:00 PM EST comple bridgette eCW1 ([facility]) pneumococcal polysaccharide PPV23 05/09/2019 05:31:00 PM EST comple bridgette eCW1 ([facility]) pneumococcal polysaccharide PPV23 05/09/2019 05:31:00 PM EST comple bridgette eCW1 ([facility]) pneumococcal polysaccharide PPV23 05/09/2019 05:31:00 PM EST comple bridgette eCW1 ([facility]) pneumococcal polysaccharide PPV23 05/09/2019 05:31:00 PM EST comple bridgette eCW1 ([facility]) pneumococcal polysaccharide PPV23 05/09/2019 05:31:00 PM EST comple bridgette eCW1 ([facility]) pneumococcal polysaccharide PPV23 05/09/2019 05:31:00 PM EST comple bridgette eCW1 ([facility]) pneumococcal polysaccharide PPV23 05/09/2019 05:31:00 PM EST comple bridgette eCW1 ([facility]) pneumococcal polysaccharide PPV23 05/09/2019 05:31:00 PM EST comple bridgette eCW1 ([facility]) pneumococcal polysaccharide PPV23 05/09/2019 05:31:00 PM EST comple bridgette eCW1 ([facility]) pneumococcal polysaccharide PPV23 05/09/2019 05:31:00 PM EST comple bridgette eCW1 ([facility]) pneumococcal polysaccharide PPV23 05/09/2019 05:31:00 PM EST comple bridgette eCW1 ([facility]) pneumococcal polysaccharide PPV23 05/09/2019 05:31:00 PM EST comple bridgette eCW1 ([facility]) pneumococcal polysaccharide PPV23 05/09/2019 05:31:00 PM EST comple bridgette eCW1 ([facility]) Medications Medication Brand Name Start Date Product Form Dose Route Admi nistrative Instructions Pharmacy Instructions Status Indications Reaction Description Data Source(s) Shingrix 50 mcg/0.5 mL UNK 05/27/2020 12:00:00 AM EST active Shingrix 50 mcg/0.5 mL eCW1 ([facility]) Shingrix 50 mcg/0.5 mL UNK 05/27/2020 12:00:00 AM EST active Shingrix 50 mcg/0.5 mL eCW1 ([facility]) Shingrix 50 mcg/0.5 mL UNK 05/27/2020 12:00:00 AM EST active Shingrix 50 mcg/0.5 mL eCW1 ([facility]) Shingrix 50 mcg/0.5 mL UNK 05/27/2020 12:00:00 AM EST active Shingrix 50 mcg/0.5 mL eCW1 ([facility]) Augmentin 875-125 MG UNK 04/21/2020 12:00:00 AM EST 1.0 {tablet } active Augmentin 875-125 MG eCW1 ([facility]) Augmentin 875-125 MG UNK 04/21/2020 12:00:00 AM EST 1.0 {tablet } active Augmentin 875-125 MG eCW1 ([facility]) Augmentin 875-125 MG UNK 04/21/2020 12:00:00 AM EST 1.0 {tablet } active Augmentin 875-125 MG eCW1 ([facility]) Augmentin 875-125 MG UNK 04/21/2020 12:00:00 AM EST 1.0 {tablet } active Augmentin 875-125 MG eCW1 ([facility]) Acetaminophen 300 MG / Codeine Phosphate 30 MG Oral Tablet Acetaminophen-Codeine #3 300-30 MG Acetaminophen-Codeine #3 300-30 MG 03/30/2020 12:00:00 AM EST 1.0 {tablet_as_needed} active Acetaminophen -Codeine #3 300-30 MG eCW1 ([facility]) Acetaminophen 300 MG / Codeine Phosphate 30 MG Oral Tablet Acetaminophen-Codeine #3 300-30 MG Acetaminophen-Codeine #3 300-30 MG 03/30/2020 12:00:00 AM EST 1.0 {tablet_as_needed} active Acetaminophen -Codeine #3 300-30 MG eCW1 ([facility]) Acetaminophen 300 MG / Codeine Phosphate 30 MG Oral Tablet Acetaminophen-Codeine #3 300-30 MG Acetaminophen-Codeine #3 300-30 MG 03/30/2020 12:00:00 AM EST 1.0 {tablet_as_needed} active Acetaminophen -Codeine #3 300-30 MG eCW1 ([facility]) Acetaminophen 300 MG / Codeine Phosphate 30 MG Oral Tablet Acetaminophen-Codeine #3 300-30 MG Acetaminophen-Codeine #3 300-30 MG 03/30/2020 12:00:00 AM EST 1.0 {tablet_as_needed} active Acetaminophen -Codeine #3 300-30 MG eCW1 ([facility]) Acetaminophen 300 MG / Codeine Phosphate 30 MG Oral Tablet Acetaminophen-Codeine #3 300-30 MG Acetaminophen-Codeine #3 300-30 MG 03/30/2020 12:00:00 AM EST 1.0 {tablet_as_needed} active Acetaminophen -Codeine #3 300-30 MG eCW1 ([facility]) Acetaminophen 300 MG / Codeine Phosphate 30 MG Oral Tablet Acetaminophen-Codeine #3 300-30 MG Acetaminophen-Codeine #3 300-30 MG 03/30/2020 12:00:00 AM EST 1.0 {tablet_as_needed} active Acetaminophen -Codeine #3 300-30 MG eCW1 ([facility]) Acetaminophen 300 MG / Codeine Phosphate 30 MG Oral Tablet Acetaminophen-Codeine #3 300-30 MG Acetaminophen-Codeine #3 300-30 MG 03/30/2020 12:00:00 AM EST 1.0 {tablet_as_needed} active Acetaminophen -Codeine #3 300-30 MG eCW1 ([facility]) Acetaminophen 300 MG / Codeine Phosphate 30 MG Oral Tablet Acetaminophen-Codeine #3 300-30 MG Acetaminophen-Codeine #3 300-30 MG 03/30/2020 12:00:00 AM EST 1.0 {tablet_as_needed} active Acetaminophen -Codeine #3 300-30 MG eCW1 ([facility]) Acetaminophen 300 MG / Codeine Phosphate 30 MG Oral Tablet Acetaminophen-Codeine #3 300-30 MG Acetaminophen-Codeine #3 300-30 MG 03/30/2020 12:00:00 AM EST 1.0 {tablet_as_needed} active Acetaminophen -Codeine #3 300-30 MG eCW1 ([facility]) Prednisone 10 MG Oral Tablet PredniSONE 10 MG PredniSONE 10 MG 03/26/2020 12:00:00 AM EDT active PredniSO NE 10 MG eCW1 ([facility]) Prednisone 10 MG Oral Tablet PredniSONE 10 MG PredniSONE 10 MG 03/26/2020 12:00:00 AM EDT active PredniSO NE 10 MG eCW1 ([facility]) Prednisone 10 MG Oral Tablet PredniSONE 10 MG PredniSONE 10 MG 03/26/2020 12:00:00 AM EDT active PredniSO NE 10 MG eCW1 ([facility]) Prednisone 10 MG Oral Tablet PredniSONE 10 MG PredniSONE 10 MG 03/26/2020 12:00:00 AM EDT active PredniSO NE 10 MG eCW1 ([facility]) Prednisone 10 MG Oral Tablet PredniSONE 10 MG PredniSONE 10 MG 03/26/2020 12:00:00 AM EDT active PredniSO NE 10 MG eCW1 ([facility]) Prednisone 10 MG Oral Tablet PredniSONE 10 MG PredniSONE 10 MG 03/26/2020 12:00:00 AM EDT active PredniSO NE 10 MG eCW1 ([facility]) Prednisone 10 MG Oral Tablet PredniSONE 10 MG PredniSONE 10 MG 03/26/2020 12:00:00 AM EDT active PredniSO NE 10 MG eCW1 ([facility]) Prednisone 10 MG Oral Tablet PredniSONE 10 MG PredniSONE 10 MG 03/26/2020 12:00:00 AM EDT active PredniSO NE 10 MG eCW1 ([facility]) Prednisone 10 MG Oral Tablet PredniSONE 10 MG PredniSONE 10 MG 03/26/2020 12:00:00 AM EDT active PredniSO NE 10 MG eCW1 ([facility]) Metformin hydrochloride 500 MG Oral Tablet Metformin HCL 12/09/2019 12:00:00 AM EDT ORAL active MEDENT ([facility] Metformin hydrochloride 500 MG Oral Tablet Metformin H Cl 500 MG Metformin HCl 500 MG 11/14/2019 12:00:00 AM EDT 1.0 {tablet_with_a_meal} active Metformin HCl 500 MG eCW1 ([facility]) Metformin hydrochloride 500 MG Oral Tablet Metformin H Cl 500 MG Metformin HCl 500 MG 11/14/2019 12:00:00 AM EDT 1.0 {tablet_with_a_meal} active Metformin HCl 500 MG eCW1 ([facility]) Metformin hydrochloride 500 MG Oral Tablet Metformin H Cl 500 MG Metformin HCl 500 MG 11/14/2019 12:00:00 AM EDT 1.0 {tablet_with_a_meal} active Metformin HCl 500 MG eCW1 ([facility]) Metformin hydrochloride 500 MG Oral Tablet Metformin H Cl 500 MG Metformin HCl 500 MG 11/14/2019 12:00:00 AM EDT 1.0 {tablet_with_a_meal} active Metformin HCl 500 MG eCW1 ([facility]) Metformin hydrochloride 500 MG Oral Tablet Metformin H Cl 500 MG Metformin HCl 500 MG 11/14/2019 12:00:00 AM EDT 1.0 {tablet_with_a_meal} active Metformin HCl 500 MG eCW1 ([facility]) Metformin hydrochloride 500 MG Oral Tablet Metformin H Cl 500 MG Metformin HCl 500 MG 11/14/2019 12:00:00 AM EDT 1.0 {tablet_with_a_meal} active Metformin HCl 500 MG eCW1 ([facility]) Metformin hydrochloride 500 MG Oral Tablet Metformin H Cl 500 MG Metformin HCl 500 MG 11/14/2019 12:00:00 AM EDT 1.0 {tablet_with_a_meal} active Metformin HCl 500 MG eCW1 ([facility]) Metformin hydrochloride 500 MG Oral Tablet Metformin H Cl 500 MG Metformin HCl 500 MG 11/14/2019 12:00:00 AM EDT 1.0 {tablet_with_a_meal} active Metformin HCl 500 MG eCW1 ([facility]) Metformin hydrochloride 500 MG Oral Tablet Metformin H Cl 500 MG Metformin HCl 500 MG 11/14/2019 12:00:00 AM EDT 1.0 {tablet_with_a_meal} active Metformin HCl 500 MG eCW1 ([facility]) Metformin hydrochloride 500 MG Oral Tablet Metformin H Cl 500 MG Metformin HCl 500 MG 11/14/2019 12:00:00 AM EDT 1.0 {tablet_with_a_meal} active Metformin HCl 500 MG eCW1 ([facility]) Metformin hydrochloride 500 MG Oral Tablet Metformin H Cl 500 MG Metformin HCl 500 MG 11/14/2019 12:00:00 AM EDT 1.0 {tablet_with_a_meal} active Metformin HCl 500 MG eCW1 ([facility]) Metformin hydrochloride 500 MG Oral Tablet Metformin H Cl 500 MG Metformin HCl 500 MG 11/14/2019 12:00:00 AM EDT 1.0 {tablet_with_a_meal} active Metformin HCl 500 MG eCW1 ([facility]) Metformin hydrochloride 500 MG Oral Tablet Metformin H Cl 500 MG Metformin HCl 500 MG 11/14/2019 12:00:00 AM EDT 1.0 {tablet_with_a_meal} active Metformin HCl 500 MG eCW1 ([facility]) Metformin hydrochloride 500 MG Oral Tablet Metformin H Cl 500 MG Metformin HCl 500 MG 11/14/2019 12:00:00 AM EDT 1.0 {tablet_with_a_meal} active Metformin HCl 500 MG eCW1 ([facility]) Cholecalciferol 5000 UNT Oral Capsule Vitamin D 125 MC G (5000 UT) Vitamin D 125 MCG (5000 UT) 06/20/2019 12:00:00 AM EST acti ve Vitamin D 125 MCG (5000 UT) eCW1 ([facility]) Cholecalciferol 5000 UNT Oral Capsule Vitamin D 125 MC G (5000 UT) Vitamin D 125 MCG (5000 UT) 06/20/2019 12:00:00 AM EST acti ve Vitamin D 125 MCG (5000 UT) eCW1 ([facility]) Cholecalciferol 5000 UNT Oral Capsule Vitamin D 125 MC G (5000 UT) Vitamin D 125 MCG (5000 UT) 06/20/2019 12:00:00 AM EST acti ve Vitamin D 125 MCG (5000 UT) eCW1 ([facility]) Cholecalciferol 5000 UNT Oral Capsule Vitamin D 125 MC G (5000 UT) Vitamin D 125 MCG (5000 UT) 06/20/2019 12:00:00 AM EST acti ve Vitamin D 125 MCG (5000 UT) eCW1 ([facility]) Cholecalciferol 5000 UNT Oral Capsule Vitamin D 125 MC G (5000 UT) Vitamin D 125 MCG (5000 UT) 06/20/2019 12:00:00 AM EST acti ve Vitamin D 125 MCG (5000 UT) eCW1 ([facility]) 24 HR Metformin hydrochloride 500 MG Ext ended Release Oral Tablet MetFORMIN HCl ER 500 MG MetFORMIN HCl ER 500 MG 06/20/2019 12:00:00 AM EST 1.0 {tablet_with_evening_meal} active MetFO RMIN HCl ER 500 MG eCW1 ([facility]) MetFORMIN HCl ER 500 MG MetFORMIN HCl ER 500 MG 06/20/2019 12:00:00 AM EST 1.0 {tablet_with_evening_meal} active MetFO RMIN HCl ER 500 MG eCW1 ([facility]) 24 HR Metformin hydrochloride 500 MG Ext ended Release Oral Tablet MetFORMIN HCl ER 500 MG MetFORMIN HCl ER 500 MG 06/20/2019 12:00:00 AM EST 1.0 {tablet_with_evening_meal} active MetFO RMIN HCl ER 500 MG eCW1 ([facility]) Cholecalciferol 5000 UNT Oral Capsule Vitamin D 125 MC G (5000 UT) Vitamin D 125 MCG (5000 UT) 06/20/2019 12:00:00 AM EST acti ve Vitamin D 125 MCG (5000 UT) eCW1 ([facility]) Cholecalciferol 5000 UNT Oral Capsule Vitamin D 125 MC G (5000 UT) Vitamin D 125 MCG (5000 UT) 06/20/2019 12:00:00 AM EST acti ve Vitamin D 125 MCG (5000 UT) eCW1 ([facility]) Cholecalciferol 5000 UNT Oral Capsule Vitamin D 125 MC G (5000 UT) Vitamin D 125 MCG (5000 UT) 06/20/2019 12:00:00 AM EST acti ve Vitamin D 125 MCG (5000 UT) eCW1 ([facility]) 24 HR Metformin hydrochloride 500 MG Ext ended Release Oral Tablet MetFORMIN HCl ER 500 MG MetFORMIN HCl ER 500 MG 06/20/2019 12:00:00 AM EST 1.0 {tablet_with_evening_meal} active MetFO RMIN HCl ER 500 MG eCW1 ([facility]) Cholecalciferol 5000 UNT Oral Capsule Vitamin D 125 MC G (5000 UT) Vitamin D 125 MCG (5000 UT) 06/20/2019 12:00:00 AM EST acti ve Vitamin D 125 MCG (5000 UT) eCW1 ([facility]) MetFORMIN HCl ER 500 MG MetFORMIN HCl ER 500 MG 06/20/2019 12:00:00 AM EST 1.0 {tablet_with_evening_meal} active MetFO RMIN HCl ER 500 MG eCW1 ([facility]) Cholecalciferol 5000 UNT Oral Capsule Vitamin D 125 MC G (5000 UT) Vitamin D 125 MCG (5000 UT) 06/20/2019 12:00:00 AM EST acti ve Vitamin D 125 MCG (5000 UT) eCW1 ([facility]) Cholecalciferol 5000 UNT Oral Capsule Vitamin D 125 MC G (5000 UT) Vitamin D 125 MCG (5000 UT) 06/20/2019 12:00:00 AM EST acti ve Vitamin D 125 MCG (5000 UT) eCW1 ([facility]) Cholecalciferol 5000 UNT Oral Capsule Vitamin D 125 MC G (5000 UT) Vitamin D 125 MCG (5000 UT) 06/20/2019 12:00:00 AM EST acti ve Vitamin D 125 MCG (5000 UT) eCW1 ([facility]) MetFORMIN HCl ER 500 MG MetFORMIN HCl ER 500 MG 06/20/2019 12:00:00 AM EST 1.0 {tablet_with_evening_meal} active MetFO RMIN HCl ER 500 MG eCW1 ([facility]) Cholecalciferol 5000 UNT Oral Capsule Vitamin D 125 MC G (5000 UT) Vitamin D 125 MCG (5000 UT) 06/20/2019 12:00:00 AM EST acti ve Vitamin D 125 MCG (5000 UT) eCW1 ([facility]) MetFORMIN HCl ER 500 MG MetFORMIN HCl ER 500 MG 06/20/2019 12:00:00 AM EST 1.0 {tablet_with_evening_meal} active MetFO RMIN HCl ER 500 MG eCW1 ([facility]) Cholecalciferol 5000 UNT Oral Capsule Vitamin D 125 MC G (5000 UT) Vitamin D 125 MCG (5000 UT) 06/20/2019 12:00:00 AM EST acti ve Vitamin D 125 MCG (5000 UT) eCW1 ([facility]) Cholecalciferol 5000 UNT Oral Capsule Vitamin D 125 MC G (5000 UT) Vitamin D 125 MCG (5000 UT) 06/20/2019 12:00:00 AM EST acti ve Vitamin D 125 MCG (5000 UT) eCW1 ([facility]) MetFORMIN HCl ER 500 MG MetFORMIN HCl ER 500 MG 06/20/2019 12:00:00 A M EST active 1 tablet with evenin g meal eCW1 ([facility]) MetFORMIN HCl ER 500 MG MetFORMIN HCl ER 500 MG 06/20/2019 12:00:00 AM EST 1.0 {tablet_with_evening_meal} active MetFO RMIN HCl ER 500 MG eCW1 ([facility]) MetFORMIN HCl ER 500 MG MetFORMIN HCl ER 500 MG 06/20/2019 12:00:00 AM EST 1.0 {tablet_with_evening_meal} active MetFO RMIN HCl ER 500 MG eCW1 ([facility]) 24 HR Metformin hydrochloride 500 MG Ext ended Release Oral Tablet MetFORMIN HCl ER 500 MG MetFORMIN HCl ER 500 MG 06/20/2019 12:00:00 AM EST 1.0 {tablet_with_evening_meal} active MetFO RMIN HCl ER 500 MG eCW1 ([facility]) 24 HR Metformin hydrochloride 500 MG Ext ended Release Oral Tablet MetFORMIN HCl ER 500 MG MetFORMIN HCl ER 500 MG 06/20/2019 12:00:00 AM EST 1.0 {tablet_with_evening_meal} suspended Met FORMIN HCl ER 500 MG eCW1 ([facility]) Ergocalciferol 13548 UNT Oral Capsule Ergocalciferol 1 .25 MG (61806 UT) Ergocalciferol 1.25 MG (48760 UT) 05/09/2019 12:00:00 AM EST 1.0 {c apsule} active Ergocalciferol 1.25 MG (5 0000 UT) eCW1 ([facility]) Ergocalciferol 46153 UNT Oral Capsule Ergocalciferol 1 .25 MG (70188 UT) Ergocalciferol 1.25 MG (01787 UT) 05/09/2019 12:00:00 AM EST 1.0 {c apsule} active Ergocalciferol 1.25 MG (5 0000 UT) eCW1 ([facility]) Ergocalciferol 23080 UNT Oral Capsule Ergocalciferol 1 .25 MG (76628 UT) Ergocalciferol 1.25 MG (46365 UT) 05/09/2019 12:00:00 AM EST 1.0 {c apsule} active Ergocalciferol 1.25 MG (5 0000 UT) eCW1 ([facility]) Ergocalciferol 46717 UNT Oral Capsule Ergocalciferol 1 .25 MG (43587 UT) Ergocalciferol 1.25 MG (31438 UT) 05/09/2019 12:00:00 AM EST 1.0 {c apsule} active Ergocalciferol 1.25 MG (5 0000 UT) eCW1 ([facility]) Ergocalciferol 84333 UNT Oral Capsule Ergocalciferol 1 .25 MG (23234 UT) Ergocalciferol 1.25 MG (80415 UT) 05/09/2019 12:00:00 AM EST 1.0 {c apsule} active Ergocalciferol 1.25 MG (5 0000 UT) eCW1 ([facility]) Ergocalciferol 77824 UNT Oral Capsule Ergocalciferol 1 .25 MG (08322 UT) Ergocalciferol 1.25 MG (33849 UT) 05/09/2019 12:00:00 AM EST 1.0 {c apsule} active Ergocalciferol 1.25 MG (5 0000 UT) eCW1 ([facility]) Ergocalciferol 39709 UNT Oral Capsule Ergocalciferol 1 .25 MG (92860 UT) Ergocalciferol 1.25 MG (43264 UT) 05/09/2019 12:00:00 AM EST 1.0 {c apsule} active Ergocalciferol 1.25 MG (5 0000 UT) eCW1 ([facility]) Ergocalciferol 79423 UNT Oral Capsule Ergocalciferol 1 .25 MG (52088 UT) Ergocalciferol 1.25 MG (98590 UT) 05/09/2019 12:00:00 AM EST 1.0 {c apsule} active Ergocalciferol 1.25 MG (5 0000 UT) W ([facility]) Ergocalciferol 86724 UNT Oral Capsule Ergocalciferol 1 .25 MG (11814 UT) Ergocalciferol 1.25 MG (99373 UT) 05/09/2019 12:00:00 AM EST active 1 capsule eCW1 ([facility]) Ergocalciferol 42254 UNT Oral Capsule Ergocalciferol 1 .25 MG (96679 UT) Ergocalciferol 1.25 MG (36360 UT) 05/09/2019 12:00:00 AM EST 1.0 {c apsule} suspended Ergocalciferol 1.25 MG (5 0000 UT) eCW ([facility]) Ergocalciferol 66097 UNT Oral Capsule Ergocalciferol 1 .25 MG (37694 UT) Ergocalciferol 1.25 MG (97963 UT) 05/09/2019 12:00:00 AM EST 1.0 {c apsule} active Ergocalciferol 1.25 MG (5 0000 UT) eCW ([facility]) Ergocalciferol 83079 UNT Oral Capsule Ergocalciferol 1 .25 MG (92105 UT) Ergocalciferol 1.25 MG (79216 UT) 05/09/2019 12:00:00 AM EST 1.0 {c apsule} active Ergocalciferol 1.25 MG (5 0000 UT) W ([facility]) Ergocalciferol 23033 UNT Oral Capsule Ergocalciferol 1 .25 MG (29415 UT) Ergocalciferol 1.25 MG (55731 UT) 05/09/2019 12:00:00 AM EST 1.0 {c apsule} active Ergocalciferol 1.25 MG (5 0000 UT) eCW1 ([facility]) Ergocalciferol 75773 UNT Oral Capsule Ergocalciferol 1 .25 MG (13610 UT) Ergocalciferol 1.25 MG (45469 UT) 05/09/2019 12:00:00 AM EST 1.0 {c apsule} active Ergocalciferol 1.25 MG (5 0000 UT) eCW1 ([facility]) Ergocalciferol 18900 UNT Oral Capsule Ergocalciferol 1 .25 MG (53731 UT) Ergocalciferol 1.25 MG (54544 UT) 05/09/2019 12:00:00 AM EST 1.0 {c apsule} active Ergocalciferol 1.25 MG (5 0000 UT) eCW1 ([facility]) Ergocalciferol 07409 UNT Oral Capsule Ergocalciferol 1 .25 MG (43540 UT) Ergocalciferol 1.25 MG (85192 UT) 05/09/2019 12:00:00 AM EST 1.0 {c apsule} active Ergocalciferol 1.25 MG (5 0000 UT) eCW1 ([facility]) Insurance Providers Payer name Policy type / Coverage type Policy ID Covered green party ID Covered green party's relationship to contreras Policy Contreras Plan Information MEDICARE BLUE PPO 306 [id number] SP [id number] MEDICARE BLUE PPO 306 [id number] SP [id number] [facility] [id number] S [id number] MEDICARE [id number] SP [id number] ANSI-Medicare Part B [id number] ANSI-Medicare Part B [id number] [facility] Part B [id number] Family Dependent [id number] [place] Med[place] Part B [id number] Self [id number] BS Exchange (Epo,Hmo,Ppo) Commercial [id number] Self [id number] Medicare (Part B) Medicare Primary [id number] Self [id number] BCBS Medicare Blue U/W Commercial [id number] Self [id number] Medicare (Part B) Medicare Primary [id number] Self [id number] BCBS Medicare Blue U/W Commercial [id number] Self [id number] ANSI-Medicare Part B [id number] ANSI-Medicare Part B [id number] ANSI-Medicare Part B [id number] ANSI-Medicare Part B [id number] ANSI-Medicare Part B [id number] Medicare Natl Gov't Servi Medicare Primary [id number] Self [id number] ANSI-Medicare Part B [id number] ANSI-Medicare Part B [id number] ANSI-Medicare Part B [id number] ANSI-Medicare Part B [id number] MEDICARE [id number] SP [id number] ANSI-Medicare Part B [id number] ANSI-Medicare Part B [id number] ANSI-Medicare Part B [id number] ANSI-Medicare Part B [id number] Medicare (Part B) Medicare Primary [id number] Self [id number] ANSI-Medicare Part B [id number] ANSI-Medicare Part B [id number] Medicare (Part B) Medicare Primary [id number] Self [id number] Medicare (Part B) Medicare Primary [id number] Self [id number] Medicare Part B Medicare Primary [id number] Self [id number] MEDICARE [id number] SP [id number] A Medicare Part B Medicare Primary [id number] Self [id number] Medicare (Part B) Medicare Primary [id number] Self [id number] MEDICARE [id number] Anitha [id number] A Medicare (Part B) Medicare Primary [id number] Self [id number] MEDICARE C [id number] S [id number] A MEDICARE A [id number] Self [id number] A MEDICARE PI PI [id number] A Problems, Conditions, and Diagnoses Code Display Name Description Problem Type Effective Dates Data Source(s) R93.89 [id number] Abnormal finding on CT scan Problem 11/14/19 12:00:00 AM EDT eCW1 ([facility]) Surgeries/Procedures Procedure Description Date Indications Data Source(s) Immunization: Boostrix 0.5mL IM (TDAP) 05/27/2020 12:0 0:00 AM EST eCW1 ([facility]) Immunization: Flublok Quadrivalent (18 years & older) 0.5mL IM (Influenza) 03/26/2020 12:00:00 AM EDT eCW1 ([facility]) ECG ROUTINE ECG W/LEAST 12 LDS W/I&R 12/10/2019 12:00: 00 AM EDT MEDENT ([facility]) THER/PROPH/DIAG INJ, SC/IM 08/18/2019 12:00:00 AM EDT eCW1 ([facility]) Injection, denosumab, 1 mg 08/18/2019 12:00:00 AM EDT eCW1 ([facility]) MYOCARDIAL SPECT MULTIPLE STUDIES 07/22/2019 12:00:00 AM EST MEDENT ([facility]) CV STRS TST XERS&/OR RX CONT ECG PHYS SI&R 07/22/2019 12:00:00 AM EST MEDENT ([facility]) ECG ROUTINE ECG W/LEAST 12 LDS W/I&R 06/16/2019 12:00: 00 AM EST MEDENT ([facility] Annual wellness visit, includes a person alized prevention plan of service (pps), subsequent visit 05/09/2019 12:00:00 AM EST eCW1 ([facility]) Office Visit, Est Pt., Level 3 PC 05/09/2019 12:00:00 AM EST eCW1 ([facility]) Office Visit, Est Pt., Level 2 FC 05/09/2019 12:00:00 AM EST eCW1 ([facility]) Pneumococcal Adult 0.5mL (Pneumovax 23) 05/09/2019 12: 00:00 AM EST eCW1 ([facility]) IMMUNIZATION ADMIN 05/09/2019 12:00:00 AM EST eCW1 ([facility]) Results ID Date Data Source Comprehensive Metabolic Profile (CMP) 04/20/2020 12:00:00 AM EST eCW1 ([facility]) Name Value Range Interpretation Code Description Data Anita rce(s) Supporting Document(s) 87 70-100 GLUCOSE, FASTING eCW1 ([facility]) > 60.0 >45 GLOMERULAR FILTRATION RATE eCW 1 ([facility]) 137 136-145 SODIUM LEVEL eCW1 ([facility]) 13 7-18 BLOOD UREA NITROGEN eCW1 ([facility]) 0.71 0.55-1.30 CREATININE FOR GFR eCW1 ([facility]) 102 98-107 CHLORIDE LEVEL eCW1 ([facility]) 5.0 3.5-5.1 POTASSIUM SERUM eCW1 ([facility]) 28 21-32 CARBON DIOXIDE LEVEL eCW1 ([facility]) 9.6 8.8-10.2 CALCIUM LEVEL eCW1 ([facility]) 1.1 0.2-1.0 BILIRUBIN,TOTAL eCW1 ([facility]) 42 12-78 ALT/SGPT eCW1 ([facility]) 187 45-117 ALKALINE PHOSPHATASE eCW1 ([facility]) 22 7-37 AST/SGOT eCW1 ([facility]) 6.8 6.4-8.2 TOTAL PROTEIN eCW1 ([facility]) 2.7 3.2-5.2 ALBUMIN eCW1 ([facility]) 0.7 1.2-2.2 ALBUMIN/GLOBULIN RATIO eCW1 ([facility]) ID Date Data Source CBC with Differential 04/20/2020 12:00:00 AM EST eCW1 ([facility]) Name Value Range Interpretation Code Description Data Anita rce(s) Supporting Document(s) 13.9 4.0-10.0 WHITE BLOOD COUNT eCW1 ([facility]) 4.98 4.00-5.40 RED BLOOD COUNT eCW1 ([facility]) 46.6 36.0-47.0 HEMATOCRIT eCW1 ([facility]) 15.0 12.0-15.5 HEMOGLOBIN eCW1 ([facility]) 14.2 11.5-14.5 RED CELL DISTRIBUTION WID TH eCW1 ([facility]) 30.1 27.0-33.0 MEAN CORPUSCULAR HEMOGLOB IN eCW1 ([facility]) 32.2 32.0-36.5 MEAN CORPUSCULAR HGB CONC eCW1 ([facility]) 93.6 80.0-96.0 MEAN CORPUSCULAR VOLUME e CW1 ([facility]) 6.4 0.0-5.0 MONO % eCW1 ([facility]) 67.3 36.0-66.0 NEUTROPHILS % eCW1 ([facility]) 22.1 24.0-44.0 LYMPH % eCW1 ([facility]) 543 150-450 PLATELET COUNT, AUTOMATED eCW1 ([facility]) 3.1 1.5-5.0 LYMPH # eCW1 ([facility]) 0.9 0.0-0.8 MONO # eCW1 ([facility]) 0.7 0.0-1.0 BASO % eCW1 ([facility]) 0.8 0.0-3.0 EOS % eCW1 ([facility]) 9.3 1.5-8.5 NEUTROPHILS # eCW1 ([facility]) 0.1 0.0-0.5 EOS # eCW1 ([facility]) 0.1 0.0-0.2 BASO # eCW1 ([facility]) ID Date Data Source BLOOD CULTURES 04/20/2020 12:00:00 AM EST eCW1 ([facility]) Name Value Range Interpretation Code Description Data Anita rce(s) Supporting Document(s) BLOOD CULTURES eCW1 ([facility]) ID Date Data Source PLZ CHEST 2 VIEW 04/20/2020 12:00:00 AM EST eCW1 ([facility]) Name Value Range Interpretation Code Description Data Anita rce(s) Supporting Document(s) PLZ CHEST 2 VIEW eCW1 ([facility]) ID Date Data Source LACTIC ACID LEVEL, LACTATE 04/20/2020 12:00:00 AM EST eCW1 ( [facility]) Name Value Range Interpretation Code Description Data Anita rce(s) Supporting Document(s) LACTIC ACID LEVEL, LACTATE eCW 1 ([facility]) ID Date Data Source [id number] 04/20/2020 12:00:00 AM EST [facility] Name Value Range Interpretation Code Description Data Anita rce(s) Supporting Document(s) SARS-CoV2 Rapid Antigen [facility] This lab was ordered by [facility] and reported by [facility]. ID Date Data Source [id number] 09/05/2019 03:02:00 PM EDT MEDENT ([facility] Name Value Range Interpretation Code Description Data Anita rce(s) Supporting Document(s) Hemoglobin A1c/Hemoglobin.total in Blood 6.3 MEDENT ([facility]) ID Date Data Source [id number] 2019 09:33:00 AM EST MEDENT ([facility]) Name Value Range Interpretation Code Description Data Anita rce(s) Supporting Document(s) Triglycerides 90 MEDENT ([facility]) Cholesterol 226 MEDENT ([facility] HDL 60 MEDENT ([facility] Cholesterol in LDL [Mass/volume] in Serum or Plasma by calculation 14 8 MEDENT ([facility] Chol/HDL Ratio 3.766 MEDENT ([facility] ID Date Data Source [id number] 2019 09:33:00 AM EST MEDENT ([facility] Name Value Range Interpretation Code Description Data Anita rce(s) Supporting Document(s) Calcium [Mass/volume] in Serum or Plasma 9.1 MEDENT ([facility] Alanine aminotransferase [Enzymatic activity/volume] in Serum or Pl asma 18 MEDENT ([facility] Albumin [Mass/volume] in Serum or Plasma 3.6 MEDENT ([facility] Chloride [Moles/volume] in Serum or Plasma 108 MEDENT ([facility] Alkaline phosphatase [Enzymatic activity/volume] in Serum or Plasma 1 63 MEDENT ([facility] Carbon dioxide, total [Moles/volume] in Serum or Plasma 30 MEDENT ([facility] Sodium 142 MEDENT ([facility] Protein [Mass/volume] in Serum or Plasma 7.2 MEDENT ([facility] Potassium [Moles/volume] in Serum or Plasma 5.3 MEDENT ([facility] Aspartate aminotransferase [Enzymatic activity/volume] in Serum or Plasma 8 MEDENT ([facility] Urea nitrogen [Mass/volume] in Serum or Plasma 15 MEDENT ([facility] Glucose 104 70-100 MEDENT ([facility] Creatinine For GFR 0.81 MEDENT ([facility] Procedure Social History Code Duration Value Status Description Data Source(s ) Smoking 05/27/2020 12:00:00 AM EST Current Smoker completed Curre nt Smoker eCW1 ([facility]) Smoking 05/27/2020 12:00:00 AM EST Current Smoker completed Curre nt Smoker eCW1 ([facility]) Smoking 05/27/2020 12:00:00 AM EST Current Smoker completed Curre nt Smoker eCW1 ([facility]) Smoking 05/27/2020 12:00:00 AM EST Current Smoker completed Curre nt Smoker eCW1 ([facility]) Smoking 04/21/2020 12:00:00 AM EST Current Smoker completed Curre nt Smoker eCW1 ([facility]) Smoking 04/21/2020 12:00:00 AM EST Current Smoker completed Curre nt Smoker eCW1 ([facility]) Smoking 04/21/2020 12:00:00 AM EST Current Smoker completed Curre nt Smoker eCW1 ([facility]) Smoking 04/21/2020 12:00:00 AM EST Current Smoker completed Curre nt Smoker eCW1 ([facility]) Smoking 03/26/2020 12:00:00 AM EDT Current Smoker completed Curre nt Smoker eCW1 ([facility]) Smoking 11/15/2019 12:00:00 AM EDT Current Smoker completed Curre nt Smoker eCW1 ([facility]) Smoking 11/15/2019 12:00:00 AM EDT Current Smoker completed Curre nt Smoker eCW1 ([facility]) Smoking 11/15/2019 12:00:00 AM EDT Current Smoker completed Curre nt Smoker eCW1 ([facility]) Smoking 11/15/2019 12:00:00 AM EDT Current Smoker completed Curre nt Smoker eCW1 ([facility]) Smoking 11/15/2019 12:00:00 AM EDT Current Smoker completed Curre nt Smoker eCW1 ([facility]) Smoking 06/20/2019 12:00:00 AM EST Current Smoker completed Curre nt Smoker eCW1 ([facility]) Vital Signs ID Date Data Source [id number] Name Value Range Interpretation Code Description Data Source(s) Diastolic blood pressure 68 mm[Hg] 68 mm[Hg] eCW1 ([facility]) Systolic blood pressure 122 mm[Hg] 122 mm[Hg] e CW1 ([facility]) Body temperature 97.3 [degF] 97.3 [degF] eCW1 ( [facility]) Respiratory rate 18 /min 18 /min eCW1 ([facility]) Heart rate 78 /min 78 /min eCW1 ([facility]) Body mass index (BMI) [Ratio] 28.14 kg/m2 28.14 kg/m2 eCW1 ([facility]) Body height 61.5 [in_i] 61.5 [in_i] eCW1 ([facility]) Body weight 151.4 [lb_av] 151.4 [lb_av] eCW1 ([facility]) Diastolic blood pressure 78 mm[Hg] 78 mm[Hg] eCW1 ([facility]) Systolic blood pressure 115 mm[Hg] 115 mm[Hg] e CW1 ([facility]) Body temperature 99.1 [degF] 99.1 [degF] eCW1 ( [facility]) Respiratory rate 16 /min 16 /min eCW1 ([facility]) Heart rate 89 /min 89 /min eCW1 ([facility]) Body mass index (BMI) [Ratio] 27.88 kg/m2 27.88 kg/m2 eCW1 ([facility]) Body height 61.5 [in_i] 61.5 [in_i] eCW1 ([facility]) Body weight 150 [lb_av] 150 [lb_av] eCW1 ([facility]) Diastolic blood pressure 78 mm[Hg] 78 mm[Hg] eCW1 ([facility]) Systolic blood pressure 115 mm[Hg] 115 mm[Hg] e CW1 ([facility]) Body temperature 99.1 [degF] 99.1 [degF] eCW1 ( [facility]) Respiratory rate 16 /min 16 /min eCW1 ([facility]) Heart rate 89 /min 89 /min eCW1 ([facility]) Body mass index (BMI) [Ratio] 27.88 kg/m2 27.88 kg/m2 W1 ([facility]) Body height 61.5 [in_i] 61.5 [in_i] eCW1 ([facility]) Body weight 150 [lb_av] 150 [lb_av] eCW1 ([facility]) Heart rate 75 /min 75 /min eCW1 ([facility]) Body mass index (BMI) [Ratio] 28.96 kg/m2 28.96 kg/m2 eCW1 ([facility]) Body height 61.5 [in_i] 61.5 [in_i] eCW1 ([facility]) Body weight 155.8 [lb_av] 155.8 [lb_av] eCW1 ([facility]) Diastolic blood pressure 72 mm[Hg] 72 mm[Hg] eCW1 ([facility]) Systolic blood pressure 120 mm[Hg] 120 mm[Hg] e CW1 ([facility]) Body temperature 97.2 [degF] 97.2 [degF] eCW1 ( [facility]) Respiratory rate 18 /min 18 /min eCW1 ([facility]) Diastolic blood pressure 62 mm[Hg] 62 mm[Hg] MEDENT ([facility] sitting Systolic blood pressure 126 mm[Hg] 126 mm[Hg] M EDENT ([facility] sitting Diastolic blood pressure 66 mm[Hg] 66 mm[Hg] MEDENT ([facility] sitting, regular cuff Systolic blood pressure 126 mm[Hg] 126 mm[Hg] M EDENT ([facility] sitting, regular cuff Respiratory rate 16 /min 16 /min MEDENT ( [facility] Heart rate 64 /min 64 /min MEDENT ([facility] Regular Body mass index (BMI) [Ratio] 28.0 kg/m2 28.0 k g/m2 MEDENT ([facility] Body height 62 [in_i] 62 [in_i] MEDENT ([facility] 5'2" Body weight 153.00 [lb_av] 153.00 [lb_av] MEDEN T ([facility] Diastolic blood pressure 80 mm[Hg] 80 mm[Hg] MEDENT ([facility] Sitting Systolic blood pressure 132 mm[Hg] 132 mm[Hg] M EDENT ([facility] Sitting Diastolic blood pressure 80 mm[Hg] 80 mm[Hg] MEDENT ([facility] Sitting, regular cuff Systolic blood pressure 136 mm[Hg] 136 mm[Hg] M EDENT ([facility]) Sitting, regular cuff Respiratory rate 16 /min 16 /min MEDENT ( [facility]) Heart rate 64 /min 64 /min MEDENT ([facility]) Regular Body mass index (BMI) [Ratio] 29.4 kg/m2 29.4 k g/m2 MEDENT ([facility]) Body height 62 [in_i] 62 [in_i] MEDENT ([facility]) 5'2" Body weight 161.00 [lb_av] 161.00 [lb_av] MEDEN T ([facility]) Diastolic blood pressure 74 mm[Hg] 74 mm[Hg] eCW1 ([facility]) Systolic blood pressure 130 mm[Hg] 130 mm[Hg] e CW1 ([facility]) Body temperature 97.9 [degF] 97.9 [degF] eCW1 ( [facility]) Respiratory rate 18 /min 18 /min eCW1 ([facility]) Heart rate 90 /min 90 /min eCW1 ([facility]) Body mass index (BMI) [Ratio] 29.92 kg/m2 29.92 kg/m2 eCW1 ([facility]) Body height 61.5 [in_us] 61.5 [in_us] eCW1 ([facility]) Body weight Measured 161.0 [lb_av] 161.0 [lb_av ] eCW1 ([facility]) Patient Treatment Plan of Care Planned Activity Planned Date Details Description Data Source (s) Shingrix 50 mcg/0.5 mL 05/27/2020 12:00:00 AM EST eCW1 ([facility]) Shingrix 50 mcg/0.5 mL 05/27/2020 12:00:00 AM EST eCW1 ([facility]) Shingrix 50 mcg/0.5 mL 05/27/2020 12:00:00 AM EST eCW1 ([facility]) Shingrix 50 mcg/0.5 mL 05/27/2020 12:00:00 AM EST eCW1 ([facility]) Augmentin 875-125 MG 04/21/2020 12:00:00 AM EST eCW1 ([facility]) Augmentin 875-125 MG 04/21/2020 12:00:00 AM EST eCW1 ([facility]) Augmentin 875-125 MG 04/21/2020 12:00:00 AM EST eCW1 ([facility]) Augmentin 875-125 MG 04/21/2020 12:00:00 AM EST eCW1 ([facility]) Acetaminophen 300 MG / Codeine Phosphate 30 MG Oral Ta blet 03/30/2020 12:00:00 AM EST eCW1 ([facility]) Prednisone 10 MG Oral Tablet 03/26/2020 12:00:00 AM EDT eCW1 ([facility]) Metformin hydrochloride 500 MG Oral Tablet 11/14/2019 12:00:00 AM E DT eCW1 ([facility]) Metformin hydrochloride 500 MG Oral Tablet 11/14/2019 12:00:00 AM E DT eCW1 ([facility]) Metformin hydrochloride 500 MG Oral Tablet 11/14/2019 12:00:00 AM E DT eCW1 ([facility]) Metformin hydrochloride 500 MG Oral Tablet 11/14/2019 12:00:00 AM E DT eCW1 ([facility]) Metformin hydrochloride 500 MG Oral Tablet 11/14/2019 12:00:00 AM E DT eCW1 ([facility]) Metformin hydrochloride 500 MG Oral Tablet 11/14/2019 12:00:00 AM E DT eCW1 ([facility]) MetFORMIN HCl ER 500 MG 06/20/2019 12:00:00 AM EST eCW1 ([facility]) Cholecalciferol 5000 UNT Oral Capsule 06/20/2019 12:00:00 AM EST eCW1 ([facility]) MetFORMIN HCl ER 500 MG 06/20/2019 12:00:00 AM EST eCW1 ([facility]) Ergocalciferol 96118 UNT Oral Capsule 05/09/2019 12:00:00 AM EST eCW1 ([facility]) Ergocalciferol 71602 UNT Oral Capsule 05/09/2019 12:00:00 AM EST eCW1 ([facility]) Ergocalciferol 63226 UNT Oral Capsule 05/09/2019 12:00:00 AM EST eCW1 ([facility]) Ergocalciferol 11424 UNT Oral Capsule 05/09/2019 12:00:00 AM EST eCW1 ([facility]) Ergocalciferol 66685 UNT Oral Capsule 05/09/2019 12:00:00 AM EST eCW1 ([facility])
[2020-06-12] MEDS ORDERED: PIPERACILLIN/TAZOBACTAM SOD 3.375 GM in D5W MINI-BAG PLUS 50 ML IV ONE (12:45)
[2020-06-12] MEDS ORDERED: ACETAMINOPHEN TAB 650MG DOSE (2X325MG) PO PRN (13:45)
--- NOTE | 2020-06-12 13:47 | HPEPDOC ---
General Date of Admission 06/12/20 Date of Service: Jun 12, 2020 Chief Complaint The patient is a 65-year-old female admitted with a reason for visit of Back Pain. Source: Patient Exam Limitations: No limitations Timing/Duration: Day(s) Severity: Moderate History of Present Illness Patient is 65 years old female with past history of hyperlipidemia, coronary artery diseases status post stent placement in 2018 presented to the hospital with right abdominal pain. Patient stated that That she developed right upper quadrant pain about 4-5 days ago after fatty meal. She stated that she has been having constant nausea and few episodes of vomiting. Her pain radiates to her back. In ER patient was found to have leukocytosis of 15, unremarkable LFT, lipase 135. Gallbladder ultrasound showed multiple gallstones in the gallbladder with significant diffuse gallbladder wall thickening. No free fluid or biliary dilatation. Diffuse fatty infiltration of the liver. Home Medications Miscellaneous Medications Aspirin (Aspirin) 81 Mg Chw, (Reported) Cyclobenzaprine HCl (Cyclobenzaprine HCl) 10 Mg Tab, (Reported) Lisinopril (Lisinopril) 2.5 Mg Tab, (Reported) Meloxicam (Meloxicam) 7.5 Mg Tab, (Reported) Metoprolol Tartrate (Metoprolol Tartrate) 12.5 Mg Halftab, (Reported) Nitroglycerin (Nitroglycerin) 0.4 Mg Sub, (Reported) Omeprazole (Omeprazole) 40 Mg Cap, (Reported) Paroxetine HCl (Paroxetine HCl) 20 Mg Tab, (Reported) Prednisone (Prednisone) 20 Mg Tablet, (Reported) [Apap/Codeine] , (Reported) Allergies Coded Allergies: No Known Allergies (Unverified , 11/14/16) Past Medical History Medical History Hyperlipidemia, [place], coronary artery diseases, hypertension Surgical History 2 cardiac stents placement in 2018 Family History I personally reviewed family history and found not pertinent Social History * Smoker: current smoker Alcohol: Denies Drugs: denies A-FIB/CHADSVASC A-FIB History Current/History of A-Fib/PAF?: No Current PO Anticoag Therapy: No Review of Systems Constitutional: Denies: Chills, Fever Eyes: Denies: Pain, Vision change ENT: Denies: Head Aches Skin: Denies: Rash, Lesions Pulmonary: Denies: Dyspnea, Cough Cardiovascular: Denies: Chest Pain Gastrointestinal: Reports: Nausea, Vomiting, Abdominal Pain Genitourinary: Denies: Dysuria, Frequency Hematologic: Denies: Bruising, Bleeding Excessively Endocrine: Denies: Polydipsia Musculoskeletal: Denies: Neck Pain Neurological: Denies: Weakness Psych: Reports: Mood Normal Physical Examination General Exam: Positive: Alert, Cooperative Eye Exam: Positive: PERRLA ENT Exam: Positive: Atraumatic Neck Exam: Positive: Supple; Negative: JVD Chest Exam: Positive: Clear to auscultation Heart Exam: Positive: Regular Rhythm Telemetry: Positive: Sinus Abdomen Exam: Positive: BS Hypoactive, Soft, Tenderness (right upper quadrant) Extremity Exam: Negative: Clubbing, Cyanosis Skin Exam: Negative: Nl turgor and temperature Neuro Exam: Positive: Normal Gait Psych Exam: Positive: Mental status NL Vital Signs Vital Signs Date Time Temp Pulse Resp B/P (MAP) Pulse Ox O2 Delivery O2 Flow Rate FiO2 06/12/20 12:04 06/12/20 11:22 97.3 71 18 98 Room Air Laboratory Data Labs 24H Laboratory Tests 2 06/12/20 11:52: Immature Granulocyte % (Auto) 0.6, Neutrophils (%) (Auto) 71.8H, Lymphocytes (%) (Auto) 19.6L, Monocytes (%) (Auto) 5.9H, Eosinophils (%) (Auto) 1.8, Basophils (%) (Auto) 0.3, Neutrophils # (Auto) 10.9H, Lymphocytes # (Auto) 3.0, Monocytes # (Auto) 0.9H, Eosinophils # (Auto) 0.3, Basophils # (Auto) 0.1, Nucleated Red Blood Cells % (auto) 0.0, Prothrombin Time 12.3, Prothromb Time International Ratio 0.89, Activated Partial Thromboplast Time 30.9, Urine Color YELLOW, Urine Appearance HAZY, Urine pH 5.0, Urine Specific Russell 1.020, Urine Protein NEGATIVE, Urine Glucose (UA) NEGATIVE, Urine Ketones TRACEH, Urine Blood 1+H, Urine Nitrite POSITIVEH, Urine Bilirubin NEGATIVE, Urine Urobilinogen 4.0H, Urine Leukocyte Esterase TRACEH, Urine WBC (Auto) 13H, Urine RBC (Auto) 2, Urine Hyaline Casts (Auto) 0, Urine Bacteria (Auto) 2+H, Urine Squamous Epithelial Cells 6, Urine Mucus (Auto) SMALL, Urine Sperm (Auto) , Total Bilirubin 0.2, Direct Bilirubin < 0.1, Aspartate Amino Transf (AST/SGOT) 12, Alanine Aminotransferase (ALT/SGPT) 21, Alkaline Phosphatase 117, Total Protein 6.5, Albumin 2.7L, Albumin/Globulin Ratio 0.7L, Lipase 135 06/12/20 12:16: POC Glucose (Misc Panel) 99, POC Sodium (Misc Panel) 139, POC Potassium (Misc Panel) 4.0, POC Chloride (Misc Panel) 103, POC Total CO2 (Misc Panel) 31.0H, POC Blood Urea Nitrogen (Misc Panel 16, POC Ionized Calcium (Misc Panel) 4.8, POC Creatinine (Misc Panel) 0.7, POC Hematocrit (Misc Panel) 45.0 06/12/20 13:14: CBC/BMP Laboratory Tests 06/12/20 11:52 Microbiology Microbiology 06/12/20 Urine Culture, Received Pending Assessment/Plan Patient is 65 years old female with past history of hyperlipidemia, coronary artery diseases status post stent placement in 2018 presented to the hospital with right abdominal pain. Patient stated that That she developed right upper quadrant pain about 4-5 days ago after fatty meal. She stated that she has been having constant nausea and few episodes of vomiting. Her pain radiates to her back. In ER patient was found to have leukocytosis of 15, unremarkable LFT, lipase 135. Gallbladder ultrasound showed multiple gallstones in the gallbladder with significant diffuse gallbladder wall thickening. No free fluid or biliary dilatation. Diffuse fatty infiltration of the liver. Problems (1) Cholecystitis, acute Status: Acute Problem Text: Patient has leukocytosis, ultrasound showed multiple gallstones in the gallbladder with significant diffuse gallbladder wall thickening. No free fluid or biliary dilatation. Diffuse fatty infiltration of the liver. Zosyn IV Clear liquid diet Appreciate agree with surgical consult (2) Hypertension Problem Text: Blood pressures under control Continue home cardioprotective medications (3) CAD (coronary artery disease) Status: Chronic Problem Text: Continue home cardioprotective medications Plan / VTE VTE Prophylaxis Ordered?: Yes BERTA ABRAHAM DO Jun 12, 2020 13:47
[2020-06-12] MEDS ORDERED: METO1TAB87 PO (13:50)
[2020-06-12] MEDS ORDERED: ACET1TAB16 PO (13:50)
[2020-06-12] MEDS ORDERED: MELO7.5T35 PO (13:50)
[2020-06-12] MEDS ORDERED: PRED10TA2 PO (13:50)
[2020-06-12] MEDS ORDERED: METF500T13 PO (13:50)
--- OUTSIDE RECORDS SUMMARY | 2020-06-12 13:51 | CCD ---
Author Author [facility] Organization [facility] Address Unknown Phone Unavailable Care Team Providers Care Candle Pourer Name Role Phone JdenowAleida PA Unavailable Unavailable [...] Mannie Gene MD Unavailable Unavailabl e Nisa, Tsout Mannie Gene MD Unavailable Unavailabl e Nisa, Stout Mannie Gene MD Unavailable Unavailabl e Insa, Stout Mannie Gene MD Unavailable Unavailabl e [...] is protected by Article 27-F of the [facility] Public Health law. If you continue you may have access to information: Regarding HIV / AIDS; Provided by facilities licensed or operated by the [facility] Office of Mental Health; or Provided by the [facility] Office for People With Developmental Disabilities. If such information is present, then the following [facility] mandated warning applies: This information has [...] allergy Atorvastatin Calcium atorvastatin myalgias Active eCW1 ([facility]) Drug allergy Brilinta Ticagrelor intracerebral hemorrhage Active eCW1 ([facility]) Family History Family Member Name Family Member Gender Family Member Status Date o f Status Description Data Source(s) Unknown Male Problem MEDENT ([facility]) Unknown Male Problem [facility] ([facility]) age 84 Encounters Encounter Providers Location Date Indications Data Source(s ) Unknown [address] [facility] [place] [address] 06/09/2020 12:00:00 AM EST eCW1 ([facility]) Unknown [address] [facility] [place] [address] 06/01/2020 12:00:00 AM EST [facility]patient [address] [facility] [place] [address] 05/27/2020 12:00:00 AM EST eCW1 [facility] Unknown [address] [facility] [place] [address] 04/21/2020 12:00:00 AM EST eCW1 [facility] Office Visit, Est Pt., Level 3 [address] [place] [address] 04/20/2020 12:00:00 AM EST eCW1 ([facility]) Unknown [address] [facility] [place] [address] 04/19/2020 12:00:00 AM EST eCW1 [facility] Unknown [address] [facility] [place] [address] 03/29/2020 12:00:00 AM EST eCW1 [facility] Outpatient [address] [facility] [place] [address] 03/26/2020 12:00:00 AM EDT eCW1 [facility] Unknown [address] [facility] [place] [address] 03/08/2020 12:00:00 AM EDT eCW1 ([facility]) Unknown [address] [facility] [place] [address] 03/03/2020 12:00:00 AM EDT eCW1 ([facility]) [place] [address] [facility] [place] [address] 03/03/2020 12:00:00 AM EDT eCW1 ([facility]) [place] [address] [facility] [place] [address] 02/26/2020 12:00:00 AM EDT [facility]1 ([facility]) [place] [address] [facility] [place] [address] 12/16/2019 12:00:00 AM EDT eCW1 [facility] Outpatient Attender: Marielle BARAKAT Main Office 12/10/2019 11:30:00 AM EDT MEDENT ([facility]) Outpatient Referrer: Mannie Paula MD 11/26/2019 05: 46:00 AM EDT [facility] [place] [address] [facility] [place] [address] 11/12/2019 12:00:00 AM EDT eCW1 [facility] [address] [facility] [place] [address] 09/18/2019 12:00:00 AM EDT eCW1 [facility] [address] [facility] [place] [address] 09/08/2019 12:00:00 AM EDT eCW1 ([facility]) [facility] [address] [facility] [place] [address] 09/05/2019 12:00:00 AM EDT eCW1 ([facility]) [facility] [address] [facility] [place] [address] 08/18/2019 12:00:00 AM EDT eCW1 ([facility]) [facility] [address] [facility] [place] [address] 07/31/2019 12:00:00 AM EST eCW1 ([facility]) Outpatient Referrer: Mannie Paula MD 07/10/2019 12: 35:00 PM EST [facility] Resident [address] [place] [address] 06/20/2019 12:00:00 AM EST eCW1 ([facility]) Outpatient Attender: Marielle BARAKAT Main Office 06/16/2019 10:30:00 AM EST MEDENT ([facility]) [facility] [place] [address] [facility] [place] [address] 06/02/2019 12:00:00 AM EST eCW1 ([facility]) [facility] [address] [facility] [place] [address] 05/09/2019 12:00:00 AM EST eCW1 ([facility]) Immunizations Vaccine Date Status Description Data Source(s) Tdap 05/27/2020 02:39:00 PM EST completed e CW1 ([facility]) Tdap 05/27/2020 02:39:00 PM EST completed e CW1 ([facility]) Tdap 05/27/2020 02:39:00 PM EST completed e CW1 ([facility]) Tdap 05/27/2020 02:39:00 PM EST completed e CW1 ([facility]) influenza, recombinant, quadrIvalent,injectable, prese rvative free 03/26/2020 05:02:00 PM EDT completed eCW1 ([facility]) influenza, recombinant, quadrIvalent,injectable, prese rvative free 03/26/2020 05:02:00 PM EDT completed eCW1 ([facility]) influenza, recombinant, quadrIvalent,injectable, prese rvative free 03/26/2020 05:02:00 PM EDT completed eCW1 ([facility]) influenza, recombinant, quadrIvalent,injectable, prese rvative free 03/26/2020 05:02:00 PM EDT completed eCW1 ([facility]) influenza, recombinant, quadrIvalent,injectable, prese rvative free 03/26/2020 05:02:00 PM EDT completed eCW1 ([facility]) influenza, recombinant, quadrIvalent,injectable, prese rvative free 03/26/2020 05:02:00 PM EDT completed eCW1 ([facility]) influenza, recombinant, quadrIvalent,injectable, prese rvative free 03/26/2020 05:02:00 PM EDT completed eCW1 ([facility]) influenza, recombinant, quadrIvalent,injectable, prese rvative free 03/26/2020 05:02:00 PM EDT completed eCW1 ([facility]) influenza, recombinant, quadrIvalent,injectable, prese rvative free 03/26/2020 05:02:00 PM EDT completed eCW1 ([facility]) Prolia 60mg/1mL (Denosumab) 08/18/2019 02:17:00 PM EDT completed eCW1 ([facility]) Prolia 60mg/1mL (Denosumab) 08/18/2019 02:17:00 PM EDT completed eCW1 ([facility]) Prolia 60mg/1mL (Denosumab) 08/18/2019 02:17:00 PM EDT completed eCW1 ([facility]) Prolia 60mg/1mL (Denosumab) 08/18/2019 02:17:00 PM EDT completed eCW1 ([facility]) Prolia 60mg/1mL (Denosumab) 08/18/2019 02:17:00 PM EDT completed eCW1 ([facility]) Prolia 60mg/1mL (Denosumab) 08/18/2019 02:17:00 PM EDT completed eCW1 ([facility]) Prolia 60mg/1mL (Denosumab) 08/18/2019 02:17:00 PM EDT completed eCW1 ([facility]) Prolia 60mg/1mL (Denosumab) 08/18/2019 02:17:00 PM EDT completed eCW1 ([facility]) Prolia 60mg/1mL (Denosumab) 08/18/2019 02:17:00 PM EDT completed eCW1 ([facility]) Prolia 60mg/1mL (Denosumab) 08/18/2019 02:17:00 PM EDT completed eCW1 ([facility]) Prolia 60mg/1mL (Denosumab) 08/18/2019 02:17:00 PM EDT completed eCW1 ([facility]) Prolia 60mg/1mL (Denosumab) 08/18/2019 02:17:00 PM EDT completed eCW1 ([facility]) Prolia 60mg/1mL (Denosumab) 08/18/2019 02:17:00 PM EDT completed eCW1 ([facility]) Prolia 60mg/1mL (Denosumab) 08/18/2019 02:17:00 PM EDT completed eCW1 ([facility]) Prolia 60mg/1mL (Denosumab) 08/18/2019 02:17:00 PM EDT completed eCW1 ([facility]) pneumococcal polysaccharide PPV23 05/09/2019 05:31:00 PM EST comple bridgette eCW1 ([facility]) pneumococcal polysaccharide PPV23 05/09/2019 05:31:00 PM EST comple bridgette eCW1 ([facility]) pneumococcal polysaccharide PPV23 05/09/2019 05:31:00 PM EST comple bridgette eCW1 ([facility]) pneumococcal polysaccharide PPV23 05/09/2019 05:31:00 PM EST comple bridgette eCW1 ([facility]) pneumococcal polysaccharide PPV23 05/09/2019 05:31:00 PM EST comple bridgette eCW1 ([facility]) pneumococcal polysaccharide PPV23 05/09/2019 05:31:00 PM EST comple bridgette eCW1 ([facility]) pneumococcal polysaccharide PPV23 05/09/2019 05:31:00 PM EST comple bridgette eCW1 ([facility]) pneumococcal polysaccharide PPV23 05/09/2019 05:31:00 PM EST comple bridgette eCW1 ([facility]) pneumococcal polysaccharide PPV23 05/09/2019 05:31:00 PM EST comple bridgette eCW1 ([facility]) pneumococcal polysaccharide PPV23 05/09/2019 05:31:00 PM EST comple bridgette eCW1 ([facility]) pneumococcal polysaccharide PPV23 05/09/2019 05:31:00 PM EST comple bridgette eCW1 ([facility]) pneumococcal polysaccharide PPV23 05/09/2019 05:31:00 PM EST comple bridgette eCW1 ([facility]) pneumococcal polysaccharide PPV23 05/09/2019 05:31:00 PM EST comple bridgette eCW1 ([facility]) pneumococcal polysaccharide PPV23 05/09/2019 05:31:00 PM EST comple bridgette eCW1 ([facility]) pneumococcal polysaccharide PPV23 05/09/2019 05:31:00 PM EST comple bridgette eCW1 ([facility]) pneumococcal polysaccharide PPV23 05/09/2019 05:31:00 PM EST comple bridgette eCW1 ([facility]) Medications Medication Brand Name Start Date Product Form Dose Route Admi nistrative Instructions Pharmacy Instructions Status Indications Reaction Description Data Source(s) Shingrix 50 mcg/0.5 mL UNK 05/27/2020 12:00:00 AM EST active Shingrix 50 mcg/0.5 mL eCW1 ([facility]) Shingrix 50 mcg/0.5 mL UNK 05/27/2020 12:00:00 AM EST active Shingrix 50 mcg/0.5 mL eCW1 ([facility]) Shingrix 50 mcg/0.5 mL UNK 05/27/2020 12:00:00 AM EST active Shingrix 50 mcg/0.5 mL eCW1 ([facility]) Shingrix 50 mcg/0.5 mL UNK 05/27/2020 12:00:00 AM EST active Shingrix 50 mcg/0.5 mL eCW1 ([facility]) Augmentin 875-125 MG UNK 04/21/2020 12:00:00 AM EST 1.0 {tablet } active Augmentin 875-125 MG eCW1 ([facility]) Augmentin 875-125 MG UNK 04/21/2020 12:00:00 AM EST 1.0 {tablet } active Augmentin 875-125 MG eCW1 ([facility]) Augmentin 875-125 MG UNK 04/21/2020 12:00:00 AM EST 1.0 {tablet } active Augmentin 875-125 MG eCW1 ([facility]) Augmentin 875-125 MG UNK 04/21/2020 12:00:00 AM EST 1.0 {tablet } active Augmentin 875-125 MG eCW1 ([facility]) Acetaminophen 300 MG / Codeine Phosphate 30 MG Oral Tablet Acetaminophen-Codeine #3 300-30 MG Acetaminophen-Codeine #3 300-30 MG 03/30/2020 12:00:00 AM EST 1.0 {tablet_as_needed} active Acetaminophen -Codeine #3 300-30 MG eCW1 ([facility]) Acetaminophen 300 MG / Codeine Phosphate 30 MG Oral Tablet Acetaminophen-Codeine #3 300-30 MG Acetaminophen-Codeine #3 300-30 MG 03/30/2020 12:00:00 AM EST 1.0 {tablet_as_needed} active Acetaminophen -Codeine #3 300-30 MG eCW1 ([facility]) Acetaminophen 300 MG / Codeine Phosphate 30 MG Oral Tablet Acetaminophen-Codeine #3 300-30 MG Acetaminophen-Codeine #3 300-30 MG 03/30/2020 12:00:00 AM EST 1.0 {tablet_as_needed} active Acetaminophen -Codeine #3 300-30 MG eCW1 ([facility]) Acetaminophen 300 MG / Codeine Phosphate 30 MG Oral Tablet Acetaminophen-Codeine #3 300-30 MG Acetaminophen-Codeine #3 300-30 MG 03/30/2020 12:00:00 AM EST 1.0 {tablet_as_needed} active Acetaminophen -Codeine #3 300-30 MG eCW1 ([facility]) Acetaminophen 300 MG / Codeine Phosphate 30 MG Oral Tablet Acetaminophen-Codeine #3 300-30 MG Acetaminophen-Codeine #3 300-30 MG 03/30/2020 12:00:00 AM EST 1.0 {tablet_as_needed} active Acetaminophen -Codeine #3 300-30 MG eCW1 ([facility]) Acetaminophen 300 MG / Codeine Phosphate 30 MG Oral Tablet Acetaminophen-Codeine #3 300-30 MG Acetaminophen-Codeine #3 300-30 MG 03/30/2020 12:00:00 AM EST 1.0 {tablet_as_needed} active Acetaminophen -Codeine #3 300-30 MG eCW1 ([facility]) Acetaminophen 300 MG / Codeine Phosphate 30 MG Oral Tablet Acetaminophen-Codeine #3 300-30 MG Acetaminophen-Codeine #3 300-30 MG 03/30/2020 12:00:00 AM EST 1.0 {tablet_as_needed} active Acetaminophen -Codeine #3 300-30 MG eCW1 ([facility]) Acetaminophen 300 MG / Codeine Phosphate 30 MG Oral Tablet Acetaminophen-Codeine #3 300-30 MG Acetaminophen-Codeine #3 300-30 MG 03/30/2020 12:00:00 AM EST 1.0 {tablet_as_needed} active Acetaminophen -Codeine #3 300-30 MG eCW1 ([facility]) Acetaminophen 300 MG / Codeine Phosphate 30 MG Oral Tablet Acetaminophen-Codeine #3 300-30 MG Acetaminophen-Codeine #3 300-30 MG 03/30/2020 12:00:00 AM EST 1.0 {tablet_as_needed} active Acetaminophen -Codeine #3 300-30 MG eCW1 ([facility]) Prednisone 10 MG Oral Tablet PredniSONE 10 MG PredniSONE 10 MG 03/26/2020 12:00:00 AM EDT active PredniSO NE 10 MG eCW1 ([facility]) Prednisone 10 MG Oral Tablet PredniSONE 10 MG PredniSONE 10 MG 03/26/2020 12:00:00 AM EDT active PredniSO NE 10 MG eCW1 ([facility]) Prednisone 10 MG Oral Tablet PredniSONE 10 MG PredniSONE 10 MG 03/26/2020 12:00:00 AM EDT active PredniSO NE 10 MG eCW1 ([facility]) Prednisone 10 MG Oral Tablet PredniSONE 10 MG PredniSONE 10 MG 03/26/2020 12:00:00 AM EDT active PredniSO NE 10 MG eCW1 ([facility]) Prednisone 10 MG Oral Tablet PredniSONE 10 MG PredniSONE 10 MG 03/26/2020 12:00:00 AM EDT active PredniSO NE 10 MG eCW1 ([facility]) Prednisone 10 MG Oral Tablet PredniSONE 10 MG PredniSONE 10 MG 03/26/2020 12:00:00 AM EDT active PredniSO NE 10 MG eCW1 ([facility]) Prednisone 10 MG Oral Tablet PredniSONE 10 MG PredniSONE 10 MG 03/26/2020 12:00:00 AM EDT active PredniSO NE 10 MG eCW1 ([facility]) Prednisone 10 MG Oral Tablet PredniSONE 10 MG PredniSONE 10 MG 03/26/2020 12:00:00 AM EDT active PredniSO NE 10 MG eCW1 ([facility]) Prednisone 10 MG Oral Tablet PredniSONE 10 MG PredniSONE 10 MG 03/26/2020 12:00:00 AM EDT active PredniSO NE 10 MG eCW1 ([facility]) Metformin hydrochloride 500 MG Oral Tablet Metformin HCL 12/09/2019 12:00:00 AM EDT ORAL active [facility] ([facility] Metformin hydrochloride 500 MG Oral Tablet Metformin H Cl 500 MG Metformin HCl 500 MG 11/14/2019 12:00:00 AM EDT 1.0 {tablet_with_a_meal} active Metformin HCl 500 MG eCW1 ([facility]) Metformin hydrochloride 500 MG Oral Tablet Metformin H Cl 500 MG Metformin HCl 500 MG 11/14/2019 12:00:00 AM EDT 1.0 {tablet_with_a_meal} active Metformin HCl 500 MG eCW1 ([facility]) Metformin hydrochloride 500 MG Oral Tablet Metformin H Cl 500 MG Metformin HCl 500 MG 11/14/2019 12:00:00 AM EDT 1.0 {tablet_with_a_meal} active Metformin HCl 500 MG eCW1 ([facility]) Metformin hydrochloride 500 MG Oral Tablet Metformin H Cl 500 MG Metformin HCl 500 MG 11/14/2019 12:00:00 AM EDT 1.0 {tablet_with_a_meal} active Metformin HCl 500 MG eCW1 ([facility]) Metformin hydrochloride 500 MG Oral Tablet Metformin H Cl 500 MG Metformin HCl 500 MG 11/14/2019 12:00:00 AM EDT 1.0 {tablet_with_a_meal} active Metformin HCl 500 MG eCW1 ([facility]) Metformin hydrochloride 500 MG Oral Tablet Metformin H Cl 500 MG Metformin HCl 500 MG 11/14/2019 12:00:00 AM EDT 1.0 {tablet_with_a_meal} active Metformin HCl 500 MG eCW1 ([facility]) Metformin hydrochloride 500 MG Oral Tablet Metformin H Cl 500 MG Metformin HCl 500 MG 11/14/2019 12:00:00 AM EDT 1.0 {tablet_with_a_meal} active Metformin HCl 500 MG eCW1 ([facility]) Metformin hydrochloride 500 MG Oral Tablet Metformin H Cl 500 MG Metformin HCl 500 MG 11/14/2019 12:00:00 AM EDT 1.0 {tablet_with_a_meal} active Metformin HCl 500 MG eCW1 ([facility]) Metformin hydrochloride 500 MG Oral Tablet Metformin H Cl 500 MG Metformin HCl 500 MG 11/14/2019 12:00:00 AM EDT 1.0 {tablet_with_a_meal} active Metformin HCl 500 MG eCW1 ([facility]) Metformin hydrochloride 500 MG Oral Tablet Metformin H Cl 500 MG Metformin HCl 500 MG 11/14/2019 12:00:00 AM EDT 1.0 {tablet_with_a_meal} active Metformin HCl 500 MG eCW1 ([facility]) Metformin hydrochloride 500 MG Oral Tablet Metformin H Cl 500 MG Metformin HCl 500 MG 11/14/2019 12:00:00 AM EDT 1.0 {tablet_with_a_meal} active Metformin HCl 500 MG eCW1 ([facility]) Metformin hydrochloride 500 MG Oral Tablet Metformin H Cl 500 MG Metformin HCl 500 MG 11/14/2019 12:00:00 AM EDT 1.0 {tablet_with_a_meal} active Metformin HCl 500 MG eCW1 ([facility]) Metformin hydrochloride 500 MG Oral Tablet Metformin H Cl 500 MG Metformin HCl 500 MG 11/14/2019 12:00:00 AM EDT 1.0 {tablet_with_a_meal} active Metformin HCl 500 MG eCW1 ([facility]) Metformin hydrochloride 500 MG Oral Tablet Metformin H Cl 500 MG Metformin HCl 500 MG 11/14/2019 12:00:00 AM EDT 1.0 {tablet_with_a_meal} active Metformin HCl 500 MG eCW1 ([facility]) Cholecalciferol 5000 UNT Oral Capsule Vitamin D 125 MC G (5000 UT) Vitamin D 125 MCG (5000 UT) 06/20/2019 12:00:00 AM EST acti ve Vitamin D 125 MCG (5000 UT) eCW1 ([facility]) Cholecalciferol 5000 UNT Oral Capsule Vitamin D 125 MC G (5000 UT) Vitamin D 125 MCG (5000 UT) 06/20/2019 12:00:00 AM EST acti ve Vitamin D 125 MCG (5000 UT) eCW1 ([facility]) Cholecalciferol 5000 UNT Oral Capsule Vitamin D 125 MC G (5000 UT) Vitamin D 125 MCG (5000 UT) 06/20/2019 12:00:00 AM EST acti ve Vitamin D 125 MCG (5000 UT) eCW1 ([facility]) Cholecalciferol 5000 UNT Oral Capsule Vitamin D 125 MC G (5000 UT) Vitamin D 125 MCG (5000 UT) 06/20/2019 12:00:00 AM EST acti ve Vitamin D 125 MCG (5000 UT) eCW1 ([facility]) Cholecalciferol 5000 UNT Oral Capsule Vitamin D 125 MC G (5000 UT) Vitamin D 125 MCG (5000 UT) 06/20/2019 12:00:00 AM EST acti ve Vitamin D 125 MCG (5000 UT) eCW1 ([facility]) 24 HR Metformin hydrochloride 500 MG Ext ended Release Oral Tablet MetFORMIN HCl ER 500 MG MetFORMIN HCl ER 500 MG 06/20/2019 12:00:00 AM EST 1.0 {tablet_with_evening_meal} active MetFO RMIN HCl ER 500 MG eCW1 ([facility]) MetFORMIN HCl ER 500 MG MetFORMIN HCl ER 500 MG 06/20/2019 12:00:00 AM EST 1.0 {tablet_with_evening_meal} active MetFO RMIN HCl ER 500 MG eCW1 ([facility]) 24 HR Metformin hydrochloride 500 MG Ext ended Release Oral Tablet MetFORMIN HCl ER 500 MG MetFORMIN HCl ER 500 MG 06/20/2019 12:00:00 AM EST 1.0 {tablet_with_evening_meal} active MetFO RMIN HCl ER 500 MG eCW1 ([facility]) Cholecalciferol 5000 UNT Oral Capsule Vitamin D 125 MC G (5000 UT) Vitamin D 125 MCG (5000 UT) 06/20/2019 12:00:00 AM EST acti ve Vitamin D 125 MCG (5000 UT) eCW1 ([facility]) Cholecalciferol 5000 UNT Oral Capsule Vitamin D 125 MC G (5000 UT) Vitamin D 125 MCG (5000 UT) 06/20/2019 12:00:00 AM EST acti ve Vitamin D 125 MCG (5000 UT) eCW1 ([facility]) Cholecalciferol 5000 UNT Oral Capsule Vitamin D 125 MC G (5000 UT) Vitamin D 125 MCG (5000 UT) 06/20/2019 12:00:00 AM EST acti ve Vitamin D 125 MCG (5000 UT) eCW1 ([facility]) 24 HR Metformin hydrochloride 500 MG Ext ended Release Oral Tablet MetFORMIN HCl ER 500 MG MetFORMIN HCl ER 500 MG 06/20/2019 12:00:00 AM EST 1.0 {tablet_with_evening_meal} active MetFO RMIN HCl ER 500 MG eCW1 ([facility]) Cholecalciferol 5000 UNT Oral Capsule Vitamin D 125 MC G (5000 UT) Vitamin D 125 MCG (5000 UT) 06/20/2019 12:00:00 AM EST acti ve Vitamin D 125 MCG (5000 UT) eCW1 ([facility]) MetFORMIN HCl ER 500 MG MetFORMIN HCl ER 500 MG 06/20/2019 12:00:00 AM EST 1.0 {tablet_with_evening_meal} active MetFO RMIN HCl ER 500 MG eCW1 ([facility]) Cholecalciferol 5000 UNT Oral Capsule Vitamin D 125 MC G (5000 UT) Vitamin D 125 MCG (5000 UT) 06/20/2019 12:00:00 AM EST acti ve Vitamin D 125 MCG (5000 UT) eCW1 ([facility]) Cholecalciferol 5000 UNT Oral Capsule Vitamin D 125 MC G (5000 UT) Vitamin D 125 MCG (5000 UT) 06/20/2019 12:00:00 AM EST acti ve Vitamin D 125 MCG (5000 UT) eCW1 ([facility]) Cholecalciferol 5000 UNT Oral Capsule Vitamin D 125 MC G (5000 UT) Vitamin D 125 MCG (5000 UT) 06/20/2019 12:00:00 AM EST acti ve Vitamin D 125 MCG (5000 UT) eCW1 ([facility]) MetFORMIN HCl ER 500 MG MetFORMIN HCl ER 500 MG 06/20/2019 12:00:00 AM EST 1.0 {tablet_with_evening_meal} active MetFO RMIN HCl ER 500 MG eCW1 ([facility]) Cholecalciferol 5000 UNT Oral Capsule Vitamin D 125 MC G (5000 UT) Vitamin D 125 MCG (5000 UT) 06/20/2019 12:00:00 AM EST acti ve Vitamin D 125 MCG (5000 UT) eCW1 ([facility]) MetFORMIN HCl ER 500 MG MetFORMIN HCl ER 500 MG 06/20/2019 12:00:00 AM EST 1.0 {tablet_with_evening_meal} active MetFO RMIN HCl ER 500 MG eCW1 ([facility]) Cholecalciferol 5000 UNT Oral Capsule Vitamin D 125 MC G (5000 UT) Vitamin D 125 MCG (5000 UT) 06/20/2019 12:00:00 AM EST acti ve Vitamin D 125 MCG (5000 UT) eCW1 ([facility]) Cholecalciferol 5000 UNT Oral Capsule Vitamin D 125 MC G (5000 UT) Vitamin D 125 MCG (5000 UT) 06/20/2019 12:00:00 AM EST acti ve Vitamin D 125 MCG (5000 UT) eCW1 ([facility]) MetFORMIN HCl ER 500 MG MetFORMIN HCl ER 500 MG 06/20/2019 12:00:00 A M EST active 1 tablet with evenin g meal eCW1 ([facility]) MetFORMIN HCl ER 500 MG MetFORMIN HCl ER 500 MG 06/20/2019 12:00:00 AM EST 1.0 {tablet_with_evening_meal} active MetFO RMIN HCl ER 500 MG eCW1 ([facility]) MetFORMIN HCl ER 500 MG MetFORMIN HCl ER 500 MG 06/20/2019 12:00:00 AM EST 1.0 {tablet_with_evening_meal} active MetFO RMIN HCl ER 500 MG eCW1 ([facility]) 24 HR Metformin hydrochloride 500 MG Ext ended Release Oral Tablet MetFORMIN HCl ER 500 MG MetFORMIN HCl ER 500 MG 06/20/2019 12:00:00 AM EST 1.0 {tablet_with_evening_meal} active MetFO RMIN HCl ER 500 MG eCW1 ([facility]) 24 HR Metformin hydrochloride 500 MG Ext ended Release Oral Tablet MetFORMIN HCl ER 500 MG MetFORMIN HCl ER 500 MG 06/20/2019 12:00:00 AM EST 1.0 {tablet_with_evening_meal} suspended Met FORMIN HCl ER 500 MG eCW1 ([facility]) Ergocalciferol 21687 UNT Oral Capsule Ergocalciferol 1 .25 MG (12457 UT) Ergocalciferol 1.25 MG (07647 UT) 05/09/2019 12:00:00 AM EST 1.0 {c apsule} active Ergocalciferol 1.25 MG (5 0000 UT) eCW1 ([facility]) Ergocalciferol 05990 UNT Oral Capsule Ergocalciferol 1 .25 MG (14801 UT) Ergocalciferol 1.25 MG (88090 UT) 05/09/2019 12:00:00 AM EST 1.0 {c apsule} active Ergocalciferol 1.25 MG (5 0000 UT) eCW1 ([facility]) Ergocalciferol 35790 UNT Oral Capsule Ergocalciferol 1 .25 MG (30350 UT) Ergocalciferol 1.25 MG (21805 UT) 05/09/2019 12:00:00 AM EST 1.0 {c apsule} active Ergocalciferol 1.25 MG (5 0000 UT) eCW1 ([facility]) Ergocalciferol 24012 UNT Oral Capsule Ergocalciferol 1 .25 MG (13930 UT) Ergocalciferol 1.25 MG (70655 UT) 05/09/2019 12:00:00 AM EST 1.0 {c apsule} active Ergocalciferol 1.25 MG (5 0000 UT) eCW1 ([facility]) Ergocalciferol 32395 UNT Oral Capsule Ergocalciferol 1 .25 MG (67748 UT) Ergocalciferol 1.25 MG (19128 UT) 05/09/2019 12:00:00 AM EST 1.0 {c apsule} active Ergocalciferol 1.25 MG (5 0000 UT) eCW1 ([facility]) Ergocalciferol 78041 UNT Oral Capsule Ergocalciferol 1 .25 MG (33220 UT) Ergocalciferol 1.25 MG (98786 UT) 05/09/2019 12:00:00 AM EST 1.0 {c apsule} active Ergocalciferol 1.25 MG (5 0000 UT) eCW1 ([facility]) Ergocalciferol 51869 UNT Oral Capsule Ergocalciferol 1 .25 MG (96595 UT) Ergocalciferol 1.25 MG (11511 UT) 05/09/2019 12:00:00 AM EST 1.0 {c apsule} active Ergocalciferol 1.25 MG (5 0000 UT) eCW1 ([facility]) Ergocalciferol 56531 UNT Oral Capsule Ergocalciferol 1 .25 MG (41580 UT) Ergocalciferol 1.25 MG (30603 UT) 05/09/2019 12:00:00 AM EST 1.0 {c apsule} active Ergocalciferol 1.25 MG (5 0000 UT) W ([facility]) Ergocalciferol 26768 UNT Oral Capsule Ergocalciferol 1 .25 MG (03390 UT) Ergocalciferol 1.25 MG (99818 UT) 05/09/2019 12:00:00 AM EST active 1 capsule eCW1 ([facility]) Ergocalciferol 73736 UNT Oral Capsule Ergocalciferol 1 .25 MG (77952 UT) Ergocalciferol 1.25 MG (18123 UT) 05/09/2019 12:00:00 AM EST 1.0 {c apsule} suspended Ergocalciferol 1.25 MG (5 0000 UT) eCW ([facility]) Ergocalciferol 08197 UNT Oral Capsule Ergocalciferol 1 .25 MG (50006 UT) Ergocalciferol 1.25 MG (62247 UT) 05/09/2019 12:00:00 AM EST 1.0 {c apsule} active Ergocalciferol 1.25 MG (5 0000 UT) eCW ([facility]) Ergocalciferol 94613 UNT Oral Capsule Ergocalciferol 1 .25 MG (73454 UT) Ergocalciferol 1.25 MG (18500 UT) 05/09/2019 12:00:00 AM EST 1.0 {c apsule} active Ergocalciferol 1.25 MG (5 0000 UT) W ([facility]) Ergocalciferol 99333 UNT Oral Capsule Ergocalciferol 1 .25 MG (50177 UT) Ergocalciferol 1.25 MG (97110 UT) 05/09/2019 12:00:00 AM EST 1.0 {c apsule} active Ergocalciferol 1.25 MG (5 0000 UT) eCW1 ([facility]) Ergocalciferol 04331 UNT Oral Capsule Ergocalciferol 1 .25 MG (33366 UT) Ergocalciferol 1.25 MG (01815 UT) 05/09/2019 12:00:00 AM EST 1.0 {c apsule} active Ergocalciferol 1.25 MG (5 0000 UT) eCW1 ([facility]) Ergocalciferol 73559 UNT Oral Capsule Ergocalciferol 1 .25 MG (62566 UT) Ergocalciferol 1.25 MG (07336 UT) 05/09/2019 12:00:00 AM EST 1.0 {c apsule} active Ergocalciferol 1.25 MG (5 0000 UT) eCW1 ([facility]) Ergocalciferol 81341 UNT Oral Capsule Ergocalciferol 1 .25 MG (46782 UT) Ergocalciferol 1.25 MG (09883 UT) 05/09/2019 12:00:00 AM EST 1.0 {c apsule} active Ergocalciferol 1.25 MG (5 0000 UT) eCW1 ([facility]) Insurance Providers Payer name Policy type / Coverage type Policy ID Covered constitution party ID Covered constitution party's relationship to contreras Policy Contreras Plan Information MEDICARE BLUE PPO 306 [id number] SP [id number] MEDICARE BLUE PPO 306 [id number] SP [id number] [facility] B [id number] S [id number] [id number] MEDICARE [id number] SP [id number] ANSI-Medicare Part B [id number] ANSI-Medicare Part B [id number] [facility] Part B [id number] Family Dependent [id number] [place] Med[place] Part B [id number] Self [id number] BS Exchange (Epo,Hmo,Ppo) Commercial [id number] Self [id number] Medicare (Part B) Medicare Primary [id number] Self [id number] BCBS Medicare Blue U/W Commercial [id number] Self [id number] Medicare (Part B) Medicare Primary [id number] Self [id number] BCBS Medicare Blue U/W Commercial [id number] Self [id number] ANSI-Medicare Part B [id number] ANSI-Medicare Part B [id number] ANSI-Medicare Part B [id number] ANSI-Medicare Part B [id number] ANSI-Medicare Part B [id number] Medicare Natl Gov't Servi Medicare Primary [id number] Self [id number] ANSI-Medicare Part B [id number] ANSI-Medicare Part B [id number] ANSI-Medicare Part B [id number] ANSI-Medicare Part B [id number] MEDICARE [id number] SP [id number] ANSI-Medicare Part B [id number] ANSI-Medicare Part B [id number] ANSI-Medicare Part B [id number] ANSI-Medicare Part B [id number] Medicare (Part B) Medicare Primary [id number] Self [id number] ANSI-Medicare Part B [id number] ANSI-Medicare Part B [id number] Medicare (Part B) Medicare Primary [id number] Self [id number] Medicare (Part B) Medicare Primary [id number] Self [id number] Medicare Part B Medicare Primary [id number] Self [id number] MEDICARE [id number] SP [id number] A Medicare Part B Medicare Primary [id number] Self [id number] Medicare (Part B) Medicare Primary [id number] Self [id number] MEDICARE [id number] Anitha [id number] A Medicare (Part B) Medicare Primary [id number] Self [id number] MEDICARE C [id number] S [id number] A MEDICARE A [id number] Self [id number] A MEDICARE PI PI [id number] A Problems, Conditions, and Diagnoses Code Display Name Description Problem Type Effective Dates Data Source(s) R93.89 [id number] Abnormal finding on CT scan Problem 11/14/19 12:00:00 AM EDT eCW1 ([facility]) Surgeries/Procedures Procedure Description Date Indications Data Source(s) Immunization: Boostrix 0.5mL IM (TDAP) 05/27/2020 12:0 0:00 AM EST eCW1 ([facility]) Immunization: Flublok Quadrivalent (18 years & older) 0.5mL IM (Influenza) 03/26/2020 12:00:00 AM EDT eCW1 ([facility]) ECG ROUTINE ECG W/LEAST 12 LDS W/I&R 12/10/2019 12:00: 00 AM EDT MEDENT ([facility]) THER/PROPH/DIAG INJ, SC/IM 08/18/2019 12:00:00 AM EDT eCW1 ([facility]) Injection, denosumab, 1 mg 08/18/2019 12:00:00 AM EDT eCW1 ([facility]) MYOCARDIAL SPECT MULTIPLE STUDIES 07/22/2019 12:00:00 AM EST MEDENT ([facility]) CV STRS TST XERS&/OR RX CONT ECG PHYS SI&R 07/22/2019 12:00:00 AM EST MEDENT ([facility]) ECG ROUTINE ECG W/LEAST 12 LDS W/I&R 06/16/2019 12:00: 00 AM EST MEDENT ([facility]) Annual wellness visit, includes a person alized prevention plan of service (pps), subsequent visit 05/09/2019 12:00:00 AM EST eCW1 ([facility]) Office Visit, Est Pt., Level 3 PC 05/09/2019 12:00:00 AM EST eCW1 ([facility]) Office Visit, Est Pt., Level 2 FC 05/09/2019 12:00:00 AM EST eCW1 ([facility]) Pneumococcal Adult 0.5mL (Pneumovax 23) 05/09/2019 12: 00:00 AM EST eCW1 ([facility]) IMMUNIZATION ADMIN 05/09/2019 12:00:00 AM EST eCW1 ([facility]) Results ID Date Data Source Comprehensive Metabolic Profile (CMP) 04/20/2020 12:00:00 AM EST eCW1 ([facility]) Name Value Range Interpretation Code Description Data Anita rce(s) Supporting Document(s) 87 70-100 GLUCOSE, FASTING eCW1 ([facility]) > 60.0 >45 GLOMERULAR FILTRATION RATE eCW 1 ([facility]) 137 136-145 SODIUM LEVEL eCW1 ([facility]) 13 7-18 BLOOD UREA NITROGEN eCW1 ([facility]) 0.71 0.55-1.30 CREATININE FOR GFR eCW1 ([facility]) 102 98-107 CHLORIDE LEVEL eCW1 ([facility]) 5.0 3.5-5.1 POTASSIUM SERUM eCW1 ([facility]) 28 21-32 CARBON DIOXIDE LEVEL eCW1 ([facility]) 9.6 8.8-10.2 CALCIUM LEVEL eCW1 ([facility]) 1.1 0.2-1.0 BILIRUBIN,TOTAL eCW1 ([facility]) 42 12-78 ALT/SGPT eCW1 ([facility]) 187 45-117 ALKALINE PHOSPHATASE eCW1 ([facility]) 22 7-37 AST/SGOT eCW1 ([facility]) 6.8 6.4-8.2 TOTAL PROTEIN eCW1 ([facility]) 2.7 3.2-5.2 ALBUMIN eCW1 ([facility]) 0.7 1.2-2.2 ALBUMIN/GLOBULIN RATIO eCW1 ([facility]) ID Date Data Source CBC with Differential 04/20/2020 12:00:00 AM EST eCW1 ([facility]) Name Value Range Interpretation Code Description Data Anita rce(s) Supporting Document(s) 13.9 4.0-10.0 WHITE BLOOD COUNT eCW1 ([facility]) 4.98 4.00-5.40 RED BLOOD COUNT eCW1 ([facility]) 46.6 36.0-47.0 HEMATOCRIT eCW1 ([facility]) 15.0 12.0-15.5 HEMOGLOBIN eCW1 ([facility]) 14.2 11.5-14.5 RED CELL DISTRIBUTION WID TH eCW1 ([facility]) 30.1 27.0-33.0 MEAN CORPUSCULAR HEMOGLOB IN eCW1 ([facility]) 32.2 32.0-36.5 MEAN CORPUSCULAR HGB CONC eCW1 ([facility]) 93.6 80.0-96.0 MEAN CORPUSCULAR VOLUME e CW1 ([facility]) 6.4 0.0-5.0 MONO % eCW1 ([facility]) 67.3 36.0-66.0 NEUTROPHILS % eCW1 ([facility]) 22.1 24.0-44.0 LYMPH % eCW1 ([facility]) 543 150-450 PLATELET COUNT, AUTOMATED eCW1 ([facility]) 3.1 1.5-5.0 LYMPH # eCW1 ([facility]) 0.9 0.0-0.8 MONO # eCW1 ([facility]) 0.7 0.0-1.0 BASO % eCW1 ([facility]) 0.8 0.0-3.0 EOS % eCW1 ([facility]) 9.3 1.5-8.5 NEUTROPHILS # eCW1 ([facility]) 0.1 0.0-0.5 EOS # eCW1 ([facility]) 0.1 0.0-0.2 BASO # eCW1 ([facility]) ID Date Data Source BLOOD CULTURES 04/20/2020 12:00:00 AM EST eCW1 ([facility]) Name Value Range Interpretation Code Description Data Anita rce(s) Supporting Document(s) BLOOD CULTURES eCW1 ([facility]) ID Date Data Source PLZ CHEST 2 VIEW 04/20/2020 12:00:00 AM EST eCW1 ([facility]) Name Value Range Interpretation Code Description Data Anita rce(s) Supporting Document(s) PLZ CHEST 2 VIEW eCW1 ([facility]) ID Date Data Source LACTIC ACID LEVEL, LACTATE 04/20/2020 12:00:00 AM EST eCW1 ( [facility]) Name Value Range Interpretation Code Description Data Anita rce(s) Supporting Document(s) LACTIC ACID LEVEL, LACTATE eCW 1 ([facility]) ID Date Data Source [id number] 04/20/2020 12:00:00 AM EST [facility] Name Value Range Interpretation Code Description Data Anita rce(s) Supporting Document(s) SARS-CoV2 Rapid Antigen [facility] This lab was ordered by [facility] and reported by [facility]. ID Date Data Source [id number] 09/05/2019 03:02:00 PM EDT MEDENT ([facility] Name Value Range Interpretation Code Description Data Anita rce(s) Supporting Document(s) Hemoglobin A1c/Hemoglobin.total in Blood 6.3 MEDENT ([facility]) ID Date Data Source [id number] 2019 09:33:00 AM EST MEDENT ([facility]) Name Value Range Interpretation Code Description Data Anita rce(s) Supporting Document(s) Triglycerides 90 MEDENT ([facility]) Cholesterol 226 MEDENT ([facility]) HDL 60 MEDENT ([facility] Cholesterol in LDL [Mass/volume] in Serum or Plasma by calculation 14 8 MEDENT ([facility]) Chol/HDL Ratio 3.766 MEDENT ([facility]) ID Date Data Source [id number] 2019 09:33:00 AM EST MEDENT ([facility]) Name Value Range Interpretation Code Description Data Anita rce(s) Supporting Document(s) Calcium [Mass/volume] in Serum or Plasma 9.1 MEDENT ([facility]) Alanine aminotransferase [Enzymatic activity/volume] in Serum or Pl asma 18 MEDENT ([facility]) Albumin [Mass/volume] in Serum or Plasma 3.6 MEDENT ([facility]) Chloride [Moles/volume] in Serum or Plasma 108 MEDENT ([facility]) Alkaline phosphatase [Enzymatic activity/volume] in Serum or Plasma 1 63 MEDENT ([facility]) Carbon dioxide, total [Moles/volume] in Serum or Plasma 30 MEDENT ([facility]) Sodium 142 MEDENT ([facility] Protein [Mass/volume] in Serum or Plasma 7.2 MEDENT ([facility]) Potassium [Moles/volume] in Serum or Plasma 5.3 MEDENT ([facility]) Aspartate aminotransferase [Enzymatic activity/volume] in Serum or Plasma 8 MEDENT ([facility]) Urea nitrogen [Mass/volume] in Serum or Plasma 15 MEDENT ([facility]) Glucose 104 70-100 MEDENT ([facility] Creatinine For GFR 0.81 MEDENT ([facility]) Procedure Social History Code Duration Value Status Description Data Source(s ) Smoking 05/27/2020 12:00:00 AM EST Current Smoker completed Curre nt Smoker eCW1 ([facility]) Smoking 05/27/2020 12:00:00 AM EST Current Smoker completed Curre nt Smoker eCW1 ([facility]) Smoking 05/27/2020 12:00:00 AM EST Current Smoker completed Curre nt Smoker eCW1 ([facility]) Smoking 05/27/2020 12:00:00 AM EST Current Smoker completed Curre nt Smoker eCW1 ([facility]) Smoking 04/21/2020 12:00:00 AM EST Current Smoker completed Curre nt Smoker eCW1 ([facility]) Smoking 04/21/2020 12:00:00 AM EST Current Smoker completed Curre nt Smoker eCW1 ([facility]) Smoking 04/21/2020 12:00:00 AM EST Current Smoker completed Curre nt Smoker eCW1 ([facility]) Smoking 04/21/2020 12:00:00 AM EST Current Smoker completed Curre nt Smoker eCW1 ([facility]) Smoking 03/26/2020 12:00:00 AM EDT Current Smoker completed Curre nt Smoker eCW1 ([facility]) Smoking 11/15/2019 12:00:00 AM EDT Current Smoker completed Curre nt Smoker eCW1 ([facility]) Smoking 11/15/2019 12:00:00 AM EDT Current Smoker completed Curre nt Smoker eCW1 ([facility]) Smoking 11/15/2019 12:00:00 AM EDT Current Smoker completed Curre nt Smoker eCW1 ([facility]) Smoking 11/15/2019 12:00:00 AM EDT Current Smoker completed Curre nt Smoker eCW1 ([facility]) Smoking 11/15/2019 12:00:00 AM EDT Current Smoker completed Curre nt Smoker eCW1 ([facility]) Smoking 06/20/2019 12:00:00 AM EST Current Smoker completed Curre nt Smoker eCW1 ([facility]) Vital Signs ID Date Data Source [id number] Name Value Range Interpretation Code Description Data Source(s) Diastolic blood pressure 68 mm[Hg] 68 mm[Hg] eCW1 ([facility]) Systolic blood pressure 122 mm[Hg] 122 mm[Hg] e CW1 ([facility]) Body temperature 97.3 [degF] 97.3 [degF] eCW1 ( [facility]) Respiratory rate 18 /min 18 /min eCW1 ([facility]) Heart rate 78 /min 78 /min eCW1 ([facility]) Body mass index (BMI) [Ratio] 28.14 kg/m2 28.14 kg/m2 eCW1 ([facility]) Body height 61.5 [in_i] 61.5 [in_i] eCW1 ([facility]) Body weight 151.4 [lb_av] 151.4 [lb_av] eCW1 ([facility]) Diastolic blood pressure 78 mm[Hg] 78 mm[Hg] eCW1 ([facility]) Systolic blood pressure 115 mm[Hg] 115 mm[Hg] e CW1 ([facility]) Body temperature 99.1 [degF] 99.1 [degF] eCW1 ( [facility]) Respiratory rate 16 /min 16 /min eCW1 ([facility]) Heart rate 89 /min 89 /min eCW1 ([facility]) Body mass index (BMI) [Ratio] 27.88 kg/m2 27.88 kg/m2 eCW1 ([facility]) Body height 61.5 [in_i] 61.5 [in_i] eCW1 ([facility]) Body weight 150 [lb_av] 150 [lb_av] eCW1 ([facility]) Diastolic blood pressure 78 mm[Hg] 78 mm[Hg] eCW1 ([facility]) Systolic blood pressure 115 mm[Hg] 115 mm[Hg] e CW1 ([facility]) Body temperature 99.1 [degF] 99.1 [degF] eCW1 ( [facility]) Respiratory rate 16 /min 16 /min eCW1 ([facility]) Heart rate 89 /min 89 /min eCW1 ([facility]) Body mass index (BMI) [Ratio] 27.88 kg/m2 27.88 kg/m2 W1 ([facility]) Body height 61.5 [in_i] 61.5 [in_i] eCW1 ([facility]) Body weight 150 [lb_av] 150 [lb_av] eCW1 ([facility]) Heart rate 75 /min 75 /min eCW1 ([facility]) Body mass index (BMI) [Ratio] 28.96 kg/m2 28.96 kg/m2 eCW1 ([facility]) Body height 61.5 [in_i] 61.5 [in_i] eCW1 ([facility]) Body weight 155.8 [lb_av] 155.8 [lb_av] eCW1 ([facility]) Diastolic blood pressure 72 mm[Hg] 72 mm[Hg] eCW1 ([facility]) Systolic blood pressure 120 mm[Hg] 120 mm[Hg] e CW1 ([facility]) Body temperature 97.2 [degF] 97.2 [degF] eCW1 ( [facility]) Respiratory rate 18 /min 18 /min eCW1 ([facility]) Diastolic blood pressure 62 mm[Hg] 62 mm[Hg] MEDENT ([facility]) sitting Systolic blood pressure 126 mm[Hg] 126 mm[Hg] M EDENT ([facility]) sitting Diastolic blood pressure 66 mm[Hg] 66 mm[Hg] MEDENT ([facility]) sitting, regular cuff Systolic blood pressure 126 mm[Hg] 126 mm[Hg] M EDENT ([facility]) sitting, regular cuff Respiratory rate 16 /min 16 /min MEDENT ( [facility]) Heart rate 64 /min 64 /min MEDENT ([facility]) Regular Body mass index (BMI) [Ratio] 28.0 kg/m2 28.0 k g/m2 MEDENT ([facility]) Body height 62 [in_i] 62 [in_i] MEDENT ([facility]) 5'2" Body weight 153.00 [lb_av] 153.00 [lb_av] MEDEN T ([facility]) Diastolic blood pressure 80 mm[Hg] 80 mm[Hg] MEDENT ([facility]) Sitting Systolic blood pressure 132 mm[Hg] 132 mm[Hg] M EDENT ([facility]) Sitting Diastolic blood pressure 80 mm[Hg] 80 mm[Hg] MEDENT ([facility]) Sitting, regular cuff Systolic blood pressure 136 mm[Hg] 136 mm[Hg] M EDENT ([facility]) Sitting, regular cuff Respiratory rate 16 /min 16 /min MEDENT ( [facility]) Heart rate 64 /min 64 /min MEDENT ([facility]) Regular Body mass index (BMI) [Ratio] 29.4 kg/m2 29.4 k g/m2 MEDENT ([facility]) Body height 62 [in_i] 62 [in_i] MEDENT ([facility]) 5'2" Body weight 161.00 [lb_av] 161.00 [lb_av] MEDEN T ([facility]) Diastolic blood pressure 74 mm[Hg] 74 mm[Hg] eCW1 ([facility]) Systolic blood pressure 130 mm[Hg] 130 mm[Hg] e CW1 ([facility]) Body temperature 97.9 [degF] 97.9 [degF] eCW1 ( [facility]) Respiratory rate 18 /min 18 /min eCW1 ([facility]) Heart rate 90 /min 90 /min eCW1 ([facility]) Body mass index (BMI) [Ratio] 29.92 kg/m2 29.92 kg/m2 eCW1 ([facility]) Body height 61.5 [in_us] 61.5 [in_us] eCW1 ([facility]) Body weight Measured 161.0 [lb_av] 161.0 [lb_av ] eCW1 ([facility]) Patient Treatment Plan of Care Planned Activity Planned Date Details Description Data Source (s) Shingrix 50 mcg/0.5 mL 05/27/2020 12:00:00 AM EST eCW1 ([facility]) Shingrix 50 mcg/0.5 mL 05/27/2020 12:00:00 AM EST eCW1 ([facility]) Shingrix 50 mcg/0.5 mL 05/27/2020 12:00:00 AM EST eCW1 ([facility]) Shingrix 50 mcg/0.5 mL 05/27/2020 12:00:00 AM EST eCW1 ([facility]) Augmentin 875-125 MG 04/21/2020 12:00:00 AM EST eCW1 ([facility]) Augmentin 875-125 MG 04/21/2020 12:00:00 AM EST eCW1 ([facility]) Augmentin 875-125 MG 04/21/2020 12:00:00 AM EST eCW1 ([facility]) Augmentin 875-125 MG 04/21/2020 12:00:00 AM EST eCW1 ([facility]) Acetaminophen 300 MG / Codeine Phosphate 30 MG Oral Ta blet 03/30/2020 12:00:00 AM EST eCW1 ([facility]) Prednisone 10 MG Oral Tablet 03/26/2020 12:00:00 AM EDT eCW1 ([facility]) Metformin hydrochloride 500 MG Oral Tablet 11/14/2019 12:00:00 AM E DT eCW1 ([facility]) Metformin hydrochloride 500 MG Oral Tablet 11/14/2019 12:00:00 AM E DT eCW1 ([facility]) Metformin hydrochloride 500 MG Oral Tablet 11/14/2019 12:00:00 AM E DT eCW1 ([facility]) Metformin hydrochloride 500 MG Oral Tablet 11/14/2019 12:00:00 AM E DT eCW1 ([facility]) Metformin hydrochloride 500 MG Oral Tablet 11/14/2019 12:00:00 AM E DT eCW1 ([facility]) Metformin hydrochloride 500 MG Oral Tablet 11/14/2019 12:00:00 AM E DT eCW1 ([facility]) MetFORMIN HCl ER 500 MG 06/20/2019 12:00:00 AM EST eCW1 ([facility]) Cholecalciferol 5000 UNT Oral Capsule 06/20/2019 12:00:00 AM EST eCW1 ([facility], [facility]) MetFORMIN HCl ER 500 MG 06/20/2019 12:00:00 AM EST eCW1 ([facility]) Ergocalciferol 15211 UNT Oral Capsule 05/09/2019 12:00:00 AM EST eCW1 ([facility]) Ergocalciferol 10941 UNT Oral Capsule 05/09/2019 12:00:00 AM EST eCW1 ([facility]) Ergocalciferol 82774 UNT Oral Capsule 05/09/2019 12:00:00 AM EST eCW1 ([facility]) Ergocalciferol 29597 UNT Oral Capsule 05/09/2019 12:00:00 AM EST eCW1 ([facility]) Ergocalciferol 57561 UNT Oral Capsule 05/09/2019 12:00:00 AM EST eCW1 ([facility])
[2020-06-12 13:58] LABS: RSV AMPLIFICATION NEGATIVE (NEGATIVE)
[2020-06-12] MEDS ORDERED: VITA50005 PO (13:58)
[2020-06-12 14:45] VITALS: BP 114/74
--- NOTE | 2020-06-12 15:13 | CR ---
CONSULTATION DATE: 06/12/2020 CHIEF COMPLAINT: Abdominal pain. REASON FOR SURGICAL CONSULTATION: Acute cholecystitis. BRIEF HISTORY OF PRESENT ILLNESS: Patient is a 65-year-old female who presents with a white count of 15,000, right upper quadrant tenderness, and evidence of cholecystitis on her ultrasound, who has had a 4 day history of abdominal pain, specifically noticed it on the right upper quadrant after she ate a brownie dessert, and then ever since then really has had some pain and discomfort. She has had some constant nausea since that time and difficulty with eating, every time she ate she would become nauseated and had increasing pain. Unfortunately, she has a significant amount of comorbidities, and at this point is here for observation/medical treatment, possible cholecystectomy. PAST MEDICAL HISTORY: Significant for history of hyperlipidemia, myocardial infarction, coronary artery disease, hypertension, cardiac stent placement, gastroesophageal (GE) reflux. MEDICATIONS: Include: - aspirin - cyclobenzaprine - lisinopril - meloxicam - metoprolol - nitroglycerin - omeprazole - paroxetine - prednisone PHYSICAL EXAMINATION: Reveals a morbidly obese female, looks stated age. HEENT: Unremarkable. Neck: Supple without adenopathy. Lungs: Clear to auscultation. Heart: Regular. Abdomen: Soft, nondistended but tender in the right upper quadrant with guarding, rebound, and tenderness almost along the right-hand side of the abdomen, in the middle of the abdomen as well. IMPRESSION/PLAN: Patient has significant cholecystitis at this time. Given her comorbidities and the duration of this, I would recommend that we treat her with IV fluids, IV antibiotics, as scheduled. I would make her nothing by mouth for at least 24 hours and I will change this in the order system and then we will see how she is doing. At some point, she may need intervention if she does not have improving abdominal pain, discomfort by tomorrow, proceeding with an emergent laparoscopic cholecystectomy may be indicated. However, given her comorbidities I anticipate she may need preoperative clearance from cardiology, etc., or at least optimization prior to operative intervention. If that is the case, we may need to proceed with a percutaneous cholecystostomy tube if we feel that her cardiac status still needs workup.
[2020-06-12] MEDS: LR 1,000 ML IV SCH ×2 (15:33→21:21)
[2020-06-12] MEDS ORDERED: ONDANSETRON 4MG/2ML VIAL IV PRN (15:45)
[2020-06-12] MEDS: PIPERACILLIN/TAZOBACTAM SOD 4.5 GM in D5W MINI-BAG PLUS 50 ML IV SCH (19:46)
[2020-06-12] MEDS ORDERED: MORPHINE 2 MG/ML 1ML VIAL (J2270) IV PRN (21:00)
[2020-06-12] MEDS ORDERED: METOPROLOL TART 25 MG TABLET PO SCH (21:00)
[2020-06-12] MEDS ORDERED: MELOXICAM (MOBIC) 7.5 MG TAB PO SCH (21:00)
[2020-06-12] MEDS ORDERED: PARoxetine 20MG TABLET PO SCH (21:00)
[2020-06-12] MEDS ORDERED: PILL CUTTER 1 EACH XX ONE (21:03)
[2020-06-12] MEDS ORDERED: PILL CUTTER 1 EACH XX PRN (21:30)
[2020-06-12 22:00] VITALS: BP 114/74
[2020-06-13] MEDS: PIPERACILLIN/TAZOBACTAM SOD 4.5 GM in D5W MINI-BAG PLUS 50 ML IV SCH ×2 (01:03→09:07)
[2020-06-13] MEDS: LR 1,000 ML IV SCH (03:24)
[2020-06-13 05:35] VITALS: BP 116/71
[2020-06-13 06:42] LABS: HEMATOCRIT 36.9 % (36.0-47.0); MEAN CORPUSCULAR HEMOGLOBIN 29.4 pg (27.0-33.0); MEAN CORPUSCULAR HGB CONC 31.2 g/dl (32.0-36.5); MEAN CORPUSCULAR VOLUME 94.4 fl (80.0-96.0); RED BLOOD COUNT 3.91 10^6/uL (4.00-5.40); WHITE BLOOD COUNT 10.6 10^3/uL (4.0-10.0)
[2020-06-13 06:49] LABS: HEMOGLOBIN 11.5 g/dl (12.0-15.5); PLATELET COUNT, AUTOMATED 479 10^3/uL (150-450)
[2020-06-13 07:15] LABS: ALBUMIN 2.2 GM/DL (3.2-5.2); ALT/SGPT 15 U/L (12-78); BILIRUBIN,TOTAL 0.5 MG/DL (0.2-1.0); BLOOD UREA NITROGEN 13 MG/DL (7-18); CALCIUM LEVEL 8.4 MG/DL (8.8-10.2); CARBON DIOXIDE LEVEL 31 MEQ/L (21-32); CHLORIDE LEVEL 108 MEQ/L (98-107); CREATININE FOR GFR 0.83 MG/DL (0.55-1.30); GLOMERULAR FILTRATION RATE > 60.0 (>45); GLUCOSE, FASTING 82 MG/DL (70-100); MAGNESIUM LEVEL 2.1 MG/DL (1.8-2.4); POTASSIUM SERUM 4.8 MEQ/L (3.5-5.1); SODIUM LEVEL 141 MEQ/L (136-145); TOTAL PROTEIN 5.3 GM/DL (6.4-8.2)
[2020-06-13] MEDS ORDERED: ASPIRIN 81 MG CHEW TABLET PO SCH (09:00)
[2020-06-13] MEDS ORDERED: METOPROLOL TART 12.5 MG PER 1/2 TAB PO SCH (09:00)
[2020-06-13] MEDS ORDERED: LISINOPRIL *2.5 MG* TAB PO SCH (09:00)
[2020-06-13] MEDS ORDERED: MORPHINE 2 MG/ML 1ML VIAL (J2270) IV PRN (09:00)
[2020-06-13] MEDS ORDERED: OMEPRAZOLE 20 MG CAP PO SCH (09:00)
[2020-06-13 09:06] VITALS: BP 116/71
[2020-06-13] MEDS ORDERED: CIPR-249 PO ×2 (09:58→12:38)
[2020-06-13] MEDS ORDERED: FLAG500T PO ×2 (09:58→12:38)
[2020-06-13] MEDS ORDERED: PERC10TA26 PO ×2 (09:58→12:38)
--- NOTE | 2020-06-13 12:03 | DS.PDOC ---
Discharge Summary General Date of Admission Jun 12, 2020 at 13:31 Date of Discharge 06/13/20 Discharge Summary PROCEDURES PERFORMED DURING STAY: [None]. ADMITTING DIAGNOSES: Cholecystitis, acute Hypertension CAD (coronary artery disease) DISCHARGE DIAGNOSES: Cholecystitis, acute Hypertension CAD (coronary artery disease) COMPLICATIONS/CHIEF COMPLAINT: Cholecystitis Acute. HISTORY OF PRESENT ILLNESS: Patient is 65 years old female with past history of hyperlipidemia, coronary artery diseases status post stent placement in 2018 presented to the hospital with right abdominal pain. Patient stated that That she developed right upper quadrant pain about 4-5 days ago after fatty meal. She stated that she has been having constant nausea and few episodes of vomiting. Her pain radiates to her back. In ER patient was found to have leukocytosis of 15, unremarkable LFT, lipase 135. Gallbladder ultrasound showed multiple gallstones in the gallbladder with significant diffuse gallbladder wall thickening. No free fluid or biliary dilatation. Diffuse fatty infiltration of the liver. HOSPITAL COURSE: During hospital stay following issue addressed Cholecystitis, acute Patient has leukocytosis, ultrasound showed multiple gallstones in the gallbladder with significant diffuse gallbladder wall thickening. No free fluid or biliary dilatation. Diffuse fatty infiltration of the liver. Patient received Zosyn IV with positive effect Clear liquid diet Surgical team recommended discharge patient. They ll see her in the office for scheduled cholecystectomy (2) Hypertension Problem Text: Blood pressures under control Continue home cardioprotective medications (3) CAD (coronary artery disease) Status: Chronic Problem Text: Continue home cardioprotective medications DISCHARGE MEDICATIONS: Please see below. ALLERGIES: Please see below. PHYSICAL EXAMINATION ON DISCHARGE: VITAL SIGNS: Please see below. Objective: GENERAL APPEARANCE: NAD HEENT: no scleral icterus, no JVD, EOMI CARDIOVASCULAR: S1S2 LUNGS: CTA ABDOMEN: soft & mildly tender in the right upper quadrant MUSCULOSKELETAL: no cyanosis, no swelling INTEGUMENT: no generalized palor NEUROLOGICAL: cranial nerve function from 2-12 intact intact, follows commands, speech not dysarthric LABORATORY DATA: Please see below. IMAGING: See above PROGNOSIS: Fair ACTIVITY: [As tolerated]. DIET: Clear liquids for next 2 days DISPOSITION: 01 Home, Self-Care. DISCHARGE INSTRUCTIONS: Avoid fried food ITEMS TO FOLLOWUP ON ON OUTPATIENT: Follow-up with surgical team tomorrow DISCHARGE CONDITION: [Stable]. TIME SPENT ON DISCHARGE: Greater than 20minutes. Vital Signs/I&Os Vital Signs Date Time Temp Pulse Resp B/P (MAP) Pulse Ox O2 Delivery O2 Flow Rate FiO2 06/13/20 09:06 77 116/71 06/13/20 05:35 98.8 20 97 Room Air I&O- Last 24 Hours up to 6 AM 06/13/20 06:00 Intake Total 2800 ml Output Total 700 ml Balance 2100 ml Laboratory Data Labs 24H Laboratory Tests 2 06/12/20 12:16: POC Glucose (Misc Panel) 99, POC Sodium (Misc Panel) 139, POC Potassium (Misc Panel) 4.0, POC Chloride (Misc Panel) 103, POC Total CO2 (Misc Panel) 31.0H, POC Blood Urea Nitrogen (Misc Panel 16, POC Ionized Calcium (Misc Panel) 4.8, POC Creatinine (Misc Panel) 0.7, POC Hematocrit (Misc Panel) 45.0 06/12/20 13:14: Coronavirus (COVID-19)(PCR) NEGATIVE, Influenza Type A (RT-PCR) NEGATIVE, Influenza Type B (RT-PCR) NEGATIVE, Respiratory Syncytial Virus (PCR) NEGATIVE 06/12/20 14:15: Procalcitonin 0.08 06/13/20 06:35: Nucleated Red Blood Cells % (auto) 0.0, Anion Gap 2L, Glomerular Filtration Rate > 60.0, Calcium Level 8.4L, Magnesium Level 2.1, Total Bilirubin 0.5#, Aspartate Amino Transf (AST/SGOT) 11, Alanine Aminotransferase (ALT/SGPT) 15, Alkaline Phosphatase 92, Total Protein 5.3L, Albumin 2.2L, Albumin/Globulin Ratio 0.7L CBC/BMP Laboratory Tests 06/13/20 06:35 Microbiology Microbiology 06/12/20 Blood Culture, Received Pending 06/12/20 Blood Culture, Received Pending 06/12/20 Urine Culture, Received Pending Discharge Medications Scheduled Aspirin (Aspirin) 81 Mg Chw, 81 MG PO DAILY, (Reported) Ciprofloxacin HCl (Cipro) 500 Mg Tablet, 500 MG PO BID Ergocalciferol (Vitamin D2) (Vitamin D2) 50,000 Units Cap, 50,000 UNITS PO 1XWK, (Reported) WEDNESDAYS Lisinopril (Lisinopril) 2.5 Mg Tab, 2.5 MG PO DAILY, (Reported) Meloxicam (Meloxicam) 7.5 Mg Tablet, 7.5 MG PO BID, (Reported) Metformin HCl (Metformin HCl) 500 Mg Tablet, 500 MG PO QPM, (Reported) Metoprolol Tartrate (Metoprolol Tartrate) 25 Mg Tablet, 12.5 MG PO BID, (Reported) Metronidazole (Flagyl) 500 Mg Tablet, 1 TAB PO BID Omeprazole (Omeprazole) 40 Mg Cap, 40 MG PO DAILY, (Reported) Paroxetine HCl (Paroxetine HCl) 20 Mg Tab, 20 MG PO QHS, (Reported) Scheduled PRN Acetaminophen with Codeine (Acetaminophen-Cod #3 Tablet) 1 Each Tablet, 1 TAB PO BID PRN for PAIN, (Reported) Cyclobenzaprine HCl (Cyclobenzaprine HCl) 10 Mg Tab, 10 MG PO TID PRN for MUSCLE SPASMS, (Reported) Nitroglycerin (Nitroglycerin) 0.4 Mg Sub, 0.4 MG PO NITRO PRN for CHEST PAIN, (Reported) Oxycodone HCl/Acetaminophen (Percocet 10-325 mg Tablet) 1 Each Tablet, 1 TAB PO QIDP PRN for ABDOMINAL PAIN Allergies Coded Allergies: No Known Allergies (Unverified , 11/14/16) BERTA ABRAHAM DO Jun 13, 2020 12:03
--- NOTE | 2020-06-13 13:06 | ECGEPIP ---
[facility] Test Date: 2020-06-13 Pat Name: DAISY ANTONIO Department: Room: [place] [address] Gender: Female Business Project Analyst: REHAN : 1955 Requested By: BERTA ABRAHAM Order Number: [id number] Reading MD: Tre Lima Measurements Intervals [place] Rate: 70 P: 39 OK: 168 QRS: 4 QRSD: 82 T: 53 QT: 403 QTc: 435 Interpretive Statements SINUS RHYTHM NONSPECIFIC T-WAVE ABNORMALITY COMPARED TO 11/14/16 ST DEPRESSIONS IN V1-V3 ARE NO LONGER PRESENT Electronically Signed on 06-13-2020 13:06:33 EST by Tre Lima
--- NOTE | 2020-06-13 15:08 | IPN ---
PROGRESS NOTE DATE: 06/13/2020 SUBJECTIVE: The patient overall has had significant improvement/resolution of her abdominal pain, just feels some pressure in the right subcostal area, but otherwise feels much better. Her white count has dropped nicely to 10.6 and she has been afebrile. PHYSICAL EXAMINATION: ABDOMEN: Mildly uncomfortable with deep palpation in the right upper quadrant but no peritoneal signs and overall significantly resolved. IMPRESSION AND PLAN: The patient had an episode of significant cholecystitis, seemed to have made some significant improvements within 24 hours. My recommendation is to start her on some clear liquids. If she tolerates clear liquids, then discharging her to home with 24-48 hours of clear liquids, p.o. antibiotics and follow up in my office for discussion of outpatient laparoscopic cholecystectomy. The patient understands our plan and she agrees to this. I have instructed her however, if she develops any pain or discomfort with the clear liquids that we should consider keeping her for another 24 hours. She is quite determined to be able to be discharged to home today and feels as though she will do better at home.
== END 2020-06-13 11:29 | disposition home or self-care (01) | DRG 446 ==
LOC: M ED 11:22 → M ED INP 13:31 → M MS5PR 14:40
PROVIDERS: ADMIT Internal Medicine; ATTEND Internal Medicine
DX: K81.0 Acute cholecystitis (principal); I10 Essential (primary) hypertension; I25.10 Atherosclerotic heart disease of native coronary artery without angina pectoris; Z95.2 Presence of prosthetic heart valve; E78.5 Hyperlipidemia, unspecified; Z79.82 Long term (current) use of aspirin; Z79.899 Other long term (current) drug therapy; E66.01 Morbid (severe) obesity due to excess calories

== ENCOUNTER → 2020-06-23 | Outpatient (REF) | payer MEDICARE ==
[~2020-06-23] MED LIST changes: +ACET1TAB16 PO; +CIPR-249 PO; +FLAG500T PO; +MELO7.5T35 PO; +METF500T13 PO; +METO1TAB87 PO; +PERC10TA26 PO; +PRED10TA2 PO; +VITA50005 PO
[2020-06-23 18:09] LABS: HEMATOCRIT 45.8 % (36.0-47.0); HEMOGLOBIN 14.3 g/dl (12.0-15.5); MEAN CORPUSCULAR HEMOGLOBIN 29.3 pg (27.0-33.0); MEAN CORPUSCULAR HGB CONC 31.2 g/dl (32.0-36.5); MEAN CORPUSCULAR VOLUME 93.9 fl (80.0-96.0); PLATELET COUNT, AUTOMATED 616 10^3/uL (150-450); RED BLOOD COUNT 4.88 10^6/uL (4.00-5.40); WHITE BLOOD COUNT 11.7 10^3/uL (4.0-10.0)
[2020-06-23 18:36] LABS: ALBUMIN 3.2 GM/DL (3.2-5.2); ALT/SGPT 14 U/L (12-78); BILIRUBIN,TOTAL 0.4 MG/DL (0.2-1.0); BLOOD UREA NITROGEN 18 MG/DL (7-18); CALCIUM LEVEL 9.6 MG/DL (8.8-10.2); CARBON DIOXIDE LEVEL 34 MEQ/L (21-32); CHLORIDE LEVEL 103 MEQ/L (98-107); CREATININE FOR GFR 0.72 MG/DL (0.55-1.30); GLOMERULAR FILTRATION RATE > 60.0 (>45); GLUCOSE, FASTING 75 MG/DL (70-100); POTASSIUM SERUM 4.8 MEQ/L (3.5-5.1); SODIUM LEVEL 139 MEQ/L (136-145); TOTAL PROTEIN 6.8 GM/DL (6.4-8.2)
== END ==
LOC: M LAB REF 16:51 → M PLALAB 16:51
PROVIDERS: ATTEND Surgery
DX: K81.9 Cholecystitis, unspecified (principal)

== ENCOUNTER → 2020-07-08 | Outpatient (REF) | payer MEDICARE ==
[2020-07-08 15:33] LABS: HEMATOCRIT 48.6 % (36.0-47.0); HEMOGLOBIN 15.1 g/dl (12.0-15.5); MEAN CORPUSCULAR HGB CONC 31.1 g/dl (32.0-36.5); MEAN CORPUSCULAR VOLUME 93.3 fl (80.0-96.0); PLATELET COUNT, AUTOMATED 523 10^3/uL (150-450); RED BLOOD COUNT 5.21 10^6/uL (4.00-5.40); WHITE BLOOD COUNT 11.5 10^3/uL (4.0-10.0)
[2020-07-08 16:00] LABS: ATYPICAL LYMPH 8 % (0-5); EOSINOPHILS 3 % (0-3); LYMPHOCYTES 29 % (16-44); MONOCYTES 4 % (0-5); NEUTROPHILS 56 % (28-66); PLATELET ESTIMATE INCREASED (NORMAL)
== END ==
LOC: M SFHCPLAZ 13:32
PROVIDERS: ATTEND Family Medicine
DX: K80.20 Calculus of gallbladder without cholecystitis without obstruction (principal)

== ENCOUNTER → 2020-07-29 | Outpatient (CLI) | payer MEDICARE ==
[~2020-07-29] MED LIST changes: +OTEZ1TAB3 PO
== END ==
LOC: M LABSMTC 09:53
PROVIDERS: ATTEND Anesthesiology
DX: Z01.812 Encounter for preprocedural laboratory examination (principal); Z20.822 Contact with and (suspected) exposure to COVID-19

== ENCOUNTER 2020-08-03 06:01 | Day surgery (SDC) | payer MEDICARE ==
[~2020-08-03] VITALS: Ht 157.5 cm; Wt 68.0 kg
[2020-08-03] MEDS ORDERED: LR 1,000 ML IV ONE (07:00)
[2020-08-03] MEDS ORDERED: ceFAZolin SOD 2 GM in IV 1 EA IV ONE (07:00)
[2020-08-03] MEDS ORDERED: LIDOCAINE 2% 100MG/5ML SDV (FOR ANES.) As Ordered ONE (07:08)
[2020-08-03] MEDS ORDERED: ROCURONIUM BROMIDE 50 MG/5 ML VIAL As Ordered ONE ×2 (07:08→08:50)
[2020-08-03] MEDS ORDERED: propofoL 200 MG/20 ML VIAL As Ordered ONE (07:08)
[2020-08-03] MEDS ORDERED: MIDAZOLAM INJ 2MG/2ML VIAL (J2250 PER 1MG) As Ordered ONE (07:08)
[2020-08-03] MEDS ORDERED: fentaNYL 100 MCG/2 ML INJECTION (J3010) As Ordered ONE ×2 (07:08→08:40)
[2020-08-03] MEDS ORDERED: BUPIVACAINE/EPIN 0.25% 30 ML VIAL As Ordered ONE (07:10)
[2020-08-03] MEDS ORDERED: GLUCAGON INJ 1MG VIAL As Ordered ONE (07:11)
[2020-08-03] MEDS ORDERED: CONRAY-60 60% 50ML VIAL (Q9961) As Ordered ONE (07:11)
[2020-08-03] MEDS ORDERED: ePHEDrine SULFATE 25 MG/5 ML(5MG/ML) SYRINGE As Ordered ONE (07:41)
[2020-08-03] MEDS ORDERED: PHENYLephrine 500MCG 5ML (100MCG/ML) SYRINGE As Ordered ONE (07:41)
[2020-08-03] MEDS ORDERED: dexameTHASONE 4 MG/ML 1ML VIAL (J1100 PER 1MG) As Ordered ONE (07:43)
[2020-08-03] MEDS ORDERED: METOCLOPRAMIDE INJ 10MG/2ML VIAL (J2765 PER 1) As Ordered ONE (08:02)
[2020-08-03] MEDS ORDERED: SUGAMMADEX SODIUM 500 MG/5 ML VIAL (BRIDION) As Ordered ONE (08:03)
[2020-08-03] MEDS ORDERED: KETOROLAC 60MG 2ML VIAL As Ordered ONE (08:03)
[2020-08-03] MEDS ORDERED: ONDANSETRON 4MG/2ML VIAL As Ordered ONE (08:03)
[2020-08-03] MEDS ORDERED: HYDROMORPHONE HCL 0.5 MG/ 0.5 ML SYRINGE (J1170 PER 1) IV PRN (09:45)
[2020-08-03] MEDS ORDERED: ONDANSETRON 4MG/2ML VIAL IV PRN (09:45)
[2020-08-03] MEDS ORDERED: LR 1,000 ML IV SCH (09:45)
[2020-08-03] MEDS ORDERED: oxyCODONE 5MG TAB PO PRN (09:45)
[2020-08-03] MEDS ORDERED: PERCOCET 5MG/325MG TAB PO PRN (09:50)
[2020-08-03] MEDS ORDERED: NS 1,000 ML IV SCH (09:50)
[2020-08-03] MEDS: fentaNYL 100 MCG/2 ML INJECTION (J3010) IV PRN ×2 (09:55→10:03)
--- NOTE | 2020-08-03 10:22 | RO ---
OPERATIVE NOTE DATE OF OPERATION: 08/03/2020 PREOPERATIVE DIAGNOSIS: History of acute cholecystitis. POSTOPERATIVE DIAGNOSIS: History of acute cholecystitis. PROCEDURE: Laparoscopic cholecystectomy. SURGEON: Mihir March Jr., MD LOAN PROCESSOR: ANESTHESIA: General endotracheal anesthesia ESTIMATED BLOOD LOSS: 50 mL FLUIDS: Crystalloid. BRIEF PROCEDURE SUMMARY: The patient was brought to the operating room and was given general anesthesia. After adequate anesthesia and preoperative antibiotics were given, the patient was prepped and draped in the usual sterile fashion. Next, a supraumbilical incision was made with a skin knife. Blunt dissection was carried down to fascia. A Veress needle was placed into the abdominal cavity and insufflated to 15 mm of pressure. Then a 10 mm trocar was placed and under direct visualization, an epigastric and two lateral trocars were placed. The gallbladder was palpated at this time and was firm, contracted and nonmobile. There was omentum adherent to it. The colon was working its way up towards that area but was not adherent to the gallbladder. However, the duodenum was adherent to the gallbladder. In any case after mobilizing a little bit of the omentum off the top of the gallbladder, I was able to grasp this with toothed graspers and retracting the gallbladder just a little bit and then staying on the gallbladder itself, using the hook cautery, worked across and was able to get down to the mid-gallbladder area where the duodenum was quite adherent to this and the concern was that the duodenum was so adherent that I actually took a little part of the wall of the gallbladder, left it on the duodenum but once again getting past this area, I was able to get into a better plane and everything was contracted in and scarred in, however, still a better plane. I was able to see the end of the gallbladder towards the cystic duct and then working very slowly and medial laterally, a plane was created to evaluate and visualize the cystic duct. I was able to see this rather well initially. However, I did not see circumferentially for a while and thus, I had continued to work posterior to the gallbladder and then once I was able to get posterior to the gallbladder adequately, I was able to lift the gallbladder itself off the liver and a good window was created behind the gallbladder. There was a small branch of probably a cystic artery that came up to the gallbladder on the medial side. This was cauterized and good hemostasis was achieved with the cautery. The cystic duct was clipped proximally and distally x2 and the gallbladder was removed from the gallbladder bed using electrocautery, staying on the wall of the gallbladder throughout its dissection and on the gallbladder bed itself. This was placed in an EndoCatch bag and given the small rent that was made in the gallbladder earlier, there were stones that were in the field that I was able to remove, placed in the EndoCatch bag and removed with the gallbladder itself later. Next, the right upper quadrant was copiously irrigated until clear. The cystic duct area was clean and dry. No bile leak was appreciated, no oozing or bleeding from the bed of the liver or in the cystic artery area. The trocars were removed under direct visualization after the gallbladder was removed at the umbilicus. Given that this was a contracted gallbladder around a large stone, I did need to make a fascial defect at the umbilicus slightly larger and thus, two [id number] were used to close the fascial defect and all trocars were removed under direct visualization. As stated previously, all incisions were closed with 4-0 Vicryl in the skin layer. Steri-Strips and a dry sterile dressing was applied. The patient was awakened, extubated and brought to the recovery room awake, alert and hemodynamically stable. Sponge and needle counts were correct x2.
[2020-08-03 11:20] VITALS: BP 127/72
== END 2020-08-03 11:27 | disposition home or self-care (01) ==
LOC: M SDC 06:01
PROVIDERS: ATTEND Surgery
DX: K80.10 Calculus of gallbladder with chronic cholecystitis without obstruction (principal); I10 Essential (primary) hypertension; E78.5 Hyperlipidemia, unspecified; E11.9 Type 2 diabetes mellitus without complications; K21.9 Gastro-esophageal reflux disease without esophagitis; F17.218 Nicotine dependence, cigarettes, with other nicotine-induced disorders; L40.9 Psoriasis, unspecified; M81.0 Age-related osteoporosis without current pathological fracture; I25.2 Old myocardial infarction; Z98.61 Coronary angioplasty status; Z79.84 Long term (current) use of oral hypoglycemic drugs; Z79.899 Other long term (current) drug therapy
CPT/HCPCS: 47562; 88304; J0690; J1100; J1885; J2250; J2370; J2405; J2765; J3010

== ENCOUNTER → 2020-08-14 | Outpatient (REF) | payer MEDICARE, BC | LOC: M LAB REF 19:00 → EEVIPCON 19:00 | PROVIDERS: ATTEND Physician Assistant Medical | DX: L02.811 Cutaneous abscess of head [any part, except face] (principal) ==

== ENCOUNTER → 2020-08-27 | Outpatient (REF) | payer MEDICARE ==
[2020-08-27 15:52] LABS: CHOLESTEROL RISK RATIO 2.05 (<5); THYROID STIMULATING HORMONE 0.285 uIU/ML (0.358-3.740)
[2020-08-27 15:54] LABS: TOTAL 25(OH) VITAMIN D 69.5 NG/ML (30.0-100.0)
== END ==
LOC: M PLALAB 12:44
PROVIDERS: ATTEND Family Medicine
DX: I25.10 Atherosclerotic heart disease of native coronary artery without angina pectoris (principal); L65.9 Nonscarring hair loss, unspecified; E55.9 Vitamin D deficiency, unspecified

== ENCOUNTER → 2021-04-08 | Outpatient (CLI) | payer MEDICARE ==
[~2021-04-08] MED LIST changes: +ERGO500029 PO; -LISI2.5T2 PO; +LISI2.5T9 PO; +OMEP40CA4 PO; -OMEP40CA97 PO; -VITA50005 PO
--- NOTE | 2021-04-08 08:36 | REP ---
INDICATION: BILE REFLUX GASTRITIS. COMPARISON: 06/12/2020 TECHNIQUE: Real-time sonographic evaluation of the right upper quadrant with Doppler FINDINGS: Multiple ultrasonographic images of the liver shows diffuse increased echos throughout the hepatic parenchyma without evidence of a mass or ductal dilatation. The common bile duct measures approximately 7 mm in its greatest transverse dimension. Images of the pancreatic region show no gross abnormality. The imaged portion of the right kidney is unchanged. There is a 1.5 cm sized cyst. IMPRESSION: Status post cholecystectomy. Fatty infiltration of the liver. Accredited by the [employer] in General Ultrasound. <Electronically signed by Harpal Clancy > 04/08/21 0819
== END ==
LOC: M RAD 07:15
PROVIDERS: ATTEND Family Medicine
DX: K29.60 Other gastritis without bleeding (principal)

== ENCOUNTER → 2021-04-08 | Outpatient (CLI) | payer MEDICARE ==
[2021-04-08 13:30] LABS: HEMOGLOBIN A1c 5.6 %
[2021-04-08 14:34] LABS: ALBUMIN 3.5 GM/DL (3.2-5.2); ALT/SGPT 15 U/L (12-78); BILIRUBIN,TOTAL 0.4 MG/DL (0.2-1.0); BLOOD UREA NITROGEN 16 MG/DL (7-18); CALCIUM LEVEL 9.6 MG/DL (8.8-10.2); CARBON DIOXIDE LEVEL 30 MEQ/L (21-32); CHLORIDE LEVEL 107 MEQ/L (98-107); CHOLESTEROL LEVEL 212 MG/DL (<200); CHOLESTEROL RISK RATIO 3.785 (<5); CREATININE FOR GFR 0.77 MG/DL (0.55-1.30); GLOMERULAR FILTRATION RATE > 60.0 (>45); GLUCOSE, FASTING 98 MG/DL (70-100); HDL CHOLESTEROL 56 MG/DL (>40); LDL CHOLESTEROL 126 MG/DL (<100); NON-HDL-C 156 MG/DL; POTASSIUM SERUM 4.3 MEQ/L (3.5-5.1); SODIUM LEVEL 141 MEQ/L (136-145); TOTAL 25(OH) VITAMIN D 36.6 NG/ML (30.0-100.0); TRIGLYCERIDES LEVEL 152 MG/DL (<150)
== END ==
LOC: M PLALAB 07:54
PROVIDERS: ATTEND Family Medicine
DX: K29.60 Other gastritis without bleeding (principal); I25.10 Atherosclerotic heart disease of native coronary artery without angina pectoris; E55.9 Vitamin D deficiency, unspecified; R73.01 Impaired fasting glucose; E78.5 Hyperlipidemia, unspecified; G89.29 Other chronic pain; Z79.899 Other long term (current) drug therapy

== ENCOUNTER → 2021-06-01 | Outpatient (CLI) | payer MEDICARE ==
--- NOTE | 2021-06-01 16:44 | DEXAMM ---
INDICATION: OSTEOPOROSIS. COMPARISON: 06/07/2018 as well as other prior exams. TECHNIQUE: Bone density was measured using dual-energy x-ray absorptiometry (DEXA). FINDINGS: AP SPINE L1-L4 BMD 0.779 g/cm2 Young Adult T-Score -3.4 Age Matched Z-Score -1.7. LT FEMUR, TOTAL BMD 0.750 g/cm2 Young Adult T-Score -2.0 Age Matched Z-Score -0.7. LT NECK BMD 0.657 g/cm2 Young Adult T-Score -2.7 Age Matched Z-Score -1.1. RT FEMUR, TOTAL BMD 0.729 g/cm2 Young Adult T-Score -2.2 Age Matched Z-Score -0.9. RT NECK BMD 0.653 g/cm2 Young Adult T-Score -2.8 Age Matched Z-Score -1.2. IMPRESSION: There is osteoporosis of the spine. There is osteoporosis of the left hip. There is osteoporosis of the right hip. The density of the spine has decreased 13.2% since the initial exam on 06/12/2001. The density of the spine decreased 2.4% since most recent exam on 06/07/2018. The density of the left hip has decreased 0.1% since initial exam on 06/12/2001. The density of the left hip has decreased 3.5% since most recent exam on 06/07/2018. The density of the right hip has decreased 5.0% since the initial exam on 06/12/2001. The density of the right hip has decreased 5.1% since the most recent exam on 06/07/2018. FOLLOW-UP: Recommendation for the next bone density exam: 1 year. <Electronically signed by Franklin Tripp > 06/01/21 1640
== END ==
LOC: M WHC 14:00
PROVIDERS: ATTEND Family Medicine
DX: M81.0 Age-related osteoporosis without current pathological fracture (principal)

== ENCOUNTER → 2021-08-03 | Outpatient (CLI) | payer MEDICARE | LOC: M RAD 15:03 | PROVIDERS: ATTEND Family Medicine | DX: Z12.2 Encounter for screening for malignant neoplasm of respiratory organs (principal); Z87.891 Personal history of nicotine dependence ==

== ENCOUNTER → 2021-09-07 | Outpatient (CLI) | payer MEDICARE ==
[~2021-09-07] MED LIST changes: -ACET1TAB16 PO; +ACET300T48 PO
== END ==
LOC: M WHC 14:50
PROVIDERS: ATTEND Family Medicine
DX: Z12.31 Encounter for screening mammogram for malignant neoplasm of breast (principal); Z80.3 Family history of malignant neoplasm of breast; Z80.42 Family history of malignant neoplasm of prostate

== ENCOUNTER → 2021-10-21 | Outpatient (CLI) | payer MEDICARE | LOC: M LAB 13:20 | PROVIDERS: ATTEND Family Medicine | DX: I25.10 Atherosclerotic heart disease of native coronary artery without angina pectoris (principal) ==

== ENCOUNTER → 2022-04-19 | Outpatient (CLI) | payer MEDICARE ==
[~2022-04-19] MED LIST changes: +CLOP75TA99 PO; -PLAV1TAB2 PO
[2022-04-19 18:02] LABS: ALBUMIN 3.4 G/DL (3.2-5.2); ALT/SGPT 19 U/L (7.0-40); BILIRUBIN,TOTAL 0.3 MG/DL (0.3-1.2); BLOOD UREA NITROGEN 14 MG/DL (9-23); CALCIUM LEVEL 9.6 MG/DL (8.3-10.6); CARBON DIOXIDE LEVEL 31 MMOL/L (20-31); CHLORIDE LEVEL 102 MMOL/L (98-107); GLOMERULAR FILTRATION RATE > 60.0 (>45); GLUCOSE, FASTING 90 MG/DL (74-106); POTASSIUM SERUM 4.8 MMOL/L (3.5-5.1); SODIUM LEVEL 140 MMOL/L (136-145); THYROID STIMULATING HORMONE 0.907 uIU/ML (0.55-4.78); TOTAL PROTEIN 6.6 G/DL (5.7-8.2)
[2022-04-19 19:22] LABS: HEMOGLOBIN A1c 5.6 % (4.0-6.0)
[2022-04-22 09:07] LABS: CREATININE, URINE 46.3 mg/dL (20.0-300.0); INSULIN LEVEL 5.7 uIU/mL (2.6-24.9)
== END ==
LOC: M PLALAB 13:20
PROVIDERS: ATTEND Family Medicine
DX: R73.02 Impaired glucose tolerance (oral) (principal); I10 Essential (primary) hypertension; G89.29 Other chronic pain; Z13.29 Encounter for screening for other suspected endocrine disorder

== ENCOUNTER → 2022-04-19 | Outpatient (CLI) | payer MEDICARE ==
[2022-04-19 17:56] LABS: BLOOD UREA NITROGEN 14 MG/DL (9-23); CALCIUM LEVEL 9.5 MG/DL (8.3-10.6); CARBON DIOXIDE LEVEL 30 MMOL/L (20-31); CHLORIDE LEVEL 102 MMOL/L (98-107); CREATININE FOR GFR 0.77 MG/DL (0.55-1.30); GLOMERULAR FILTRATION RATE > 60.0 (>45); GLUCOSE, FASTING 89 MG/DL (74-106); POTASSIUM SERUM 4.7 MMOL/L (3.5-5.1); SODIUM LEVEL 140 MMOL/L (136-145)
== END ==
LOC: M PLALAB 13:22
PROVIDERS: ATTEND Physician Assistant
DX: I10 Essential (primary) hypertension (principal)

== ENCOUNTER 2022-05-01 09:20 | Emergency (ER) | payer MEDICARE ==
[~2022-05-01] VITALS: Ht 157.5 cm; Wt 70.4 kg
[2022-05-01] MEDS ORDERED: ZOLP5TAB (09:31)
[2022-05-01] MEDS ORDERED: EZET10TA21 (09:31)
[2022-05-01] MEDS ORDERED: MECLIZINE 25 MG TABLET PO ONE (10:40)
[2022-05-01] MEDS ORDERED: ISOVUE-370 76% 100ML VIAL As Ordered ONE (10:56)
[2022-05-01 11:00] LABS: BASO # 0.1 10^3/uL (0.0-0.2); BASO % 0.5 % (0.0-1.0); EOS # 0.2 10^3/uL (0.0-0.5); EOS % 1.3 % (0.0-3.0); HEMATOCRIT 47.7 % (36.0-47.0); HEMOGLOBIN 15.3 g/dl (12.0-15.5); LYMPH # 3.2 10^3/uL (1.5-5.0); LYMPH % 25.9 % (24.0-44.0); MEAN CORPUSCULAR HEMOGLOBIN 29.3 pg (27.0-33.0); MEAN CORPUSCULAR HGB CONC 32.1 g/dl (32.0-36.5); MEAN CORPUSCULAR VOLUME 91.2 fl (80.0-96.0); MONO # 0.6 10^3/uL (0.0-0.8); MONO % 4.9 % (2.0-8.0); NEUTROPHILS # 8.3 10^3/uL (1.5-8.5); NEUTROPHILS % 66.9 % (36.0-66.0); PLATELET COUNT, AUTOMATED 497 10^3/uL (150-450); RED BLOOD COUNT 5.23 10^6/uL (4.00-5.40); WHITE BLOOD COUNT 12.4 10^3/uL (4.0-10.0)
[2022-05-01 11:11] LABS: INR 0.81; PROTHROMBIN TIME 11.4 SECONDS (12.5-14.5)
[2022-05-01 11:12] LABS: PARTIAL THROMBOPLASTIN TIME 31.5 SECONDS (24.8-34.2)
[2022-05-01 11:32] LABS: CK-MB VALUE MASS < 1.0 NG/ML (<3.6)
[2022-05-01 11:34] LABS: ALBUMIN 3.3 G/DL (3.2-5.2); ALKALINE PHOSPHATASE 106 U/L (46-116); ALT/SGPT 18 U/L (7.0-40); AST/SGOT 15 U/L (<34); BILIRUBIN,DIRECT < 0.1 MG/DL (<0.4); BILIRUBIN,TOTAL 0.3 MG/DL (0.3-1.2); CPK CREATINE PHOSPHOKINASE 50 U/L (34-145); TOTAL PROTEIN 6.4 G/DL (5.7-8.2)
[2022-05-01 11:42] LABS: RSV AMPLIFICATION NEGATIVE (NEGATIVE)
[2022-05-01 12:37] LABS: CK-MB VALUE MASS < 1.0 NG/ML (<3.6)
[2022-05-01 12:38] LABS: CPK CREATINE PHOSPHOKINASE 47 U/L (34-145); MB/CK RELATIVE INDEX 2.12 (< OR =4)
[2022-05-01 15:55] LABS: CPK CREATINE PHOSPHOKINASE 50 U/L (34-145)
[2022-05-01 16:18] LABS: CK-MB VALUE MASS < 1.0 NG/ML (<3.6)
[2022-05-01] MEDS ORDERED: MECL-86 PO (16:27)
[2022-05-01 17:06] VITALS: BP 122/68
== END 2022-05-01 17:25 | disposition home or self-care (01) ==
LOC: M ED 09:20
DX: H81.4 Vertigo of central origin (principal); I44.4 Left anterior fascicular block; I25.2 Old myocardial infarction; I10 Essential (primary) hypertension; E11.9 Type 2 diabetes mellitus without complications; F41.9 Anxiety disorder, unspecified; F17.200 Nicotine dependence, unspecified, uncomplicated; Z95.5 Presence of coronary angioplasty implant and graft; Z79.811 Long term (current) use of aromatase inhibitors; Z79.4 Long term (current) use of insulin; Z79.899 Other long term (current) drug therapy
CPT/HCPCS: 36415; 70450; 70496; 70498; 70551; 71045; 80047; 80076; 81000; 81015; 82550; 82553; 84484; 85025; 85610; 85730; 86850; 86900; 86901; 87088; 87186; 87631; 93005; 93041; 94760; 99285; Q9967

== ENCOUNTER → 2022-05-31 | Outpatient (CLI) | payer MEDICARE ==
[~2022-05-31] MED LIST changes: +APRE30TA3 PO; +EZET10TA21; +MECL-86 PO; -OTEZ1TAB3 PO; +ZOLP5TAB
== END ==
LOC: M PLALAB 10:53
PROVIDERS: ATTEND Student in an Organized Health Care Education/Training Program
DX: M79.674 Pain in right toe(s) (principal)

== ENCOUNTER → 2022-08-09 | Outpatient (CLI) | payer MEDICARE | LOC: M PLAIMG 12:07 → M PLALAB 12:07 | PROVIDERS: ATTEND Student in an Organized Health Care Education/Training Program | DX: M51.36 Other intervertebral disc degeneration, lumbar region (principal); M51.37 Other intervertebral disc degeneration, lumbosacral region; M54.2 Cervicalgia ==

== ENCOUNTER → 2022-08-11 | Outpatient (CLI) | payer MEDICARE | LOC: M RAD 15:48 | PROVIDERS: ATTEND Student in an Organized Health Care Education/Training Program | DX: S32.050A Wedge compression fracture of fifth lumbar vertebra, initial encounter for closed fracture (principal); S32.040A Wedge compression fracture of fourth lumbar vertebra, initial encounter for closed fracture; X50.0XXA Overexertion from strenuous movement or load, initial encounter; Y92.9 Unspecified place or not applicable ==

== ENCOUNTER → 2022-08-18 | Outpatient (REF) | payer MEDICARE | LOC: M SFHCPLAZ 12:05 | PROVIDERS: ATTEND Family Medicine | DX: Z53.20 Procedure and treatment not carried out because of patient's decision for unspecified reasons (principal) ==

== ENCOUNTER → 2022-08-28 | Outpatient (CLI) | payer MEDICARE | LOC: M SOG 10:56 | PROVIDERS: ATTEND Orthopaedic Surgery | DX: M54.50 Low back pain, unspecified (principal) ==

== ENCOUNTER → 2022-09-18 | Outpatient (CLI) | payer MEDICARE | LOC: M SOG 08:02 | PROVIDERS: ATTEND Orthopaedic Surgery | DX: M54.50 Low back pain, unspecified (principal); M48.56XA Collapsed vertebra, not elsewhere classified, lumbar region, initial encounter for fracture ==

== ENCOUNTER → 2022-09-21 | Outpatient (CLI) | payer MEDICARE | LOC: M PLALAB 08:29 | PROVIDERS: ATTEND Student in an Organized Health Care Education/Training Program | DX: E55.9 Vitamin D deficiency, unspecified (principal) ==

== ENCOUNTER → 2022-09-21 | Outpatient (CLI) | payer MEDICARE ==
[2022-09-21 10:44] LABS: BASO # 0.1 10^3/uL (0.0-0.2); BASO % 0.6 % (0.0-1.0); BLOOD UREA NITROGEN 15 MG/DL (9-23); CARBON DIOXIDE LEVEL 30 MMOL/L (20-31); CHLORIDE LEVEL 107 MMOL/L (98-107); CREATININE FOR GFR 0.79 MG/DL (0.55-1.30); EOS # 0.4 10^3/uL (0.0-0.5); EOS % 3.4 % (0.0-3.0); GLOMERULAR FILTRATION RATE > 60.0 (>45); GLUCOSE, FASTING 94 MG/DL (74-106); HEMATOCRIT 46.9 % (36.0-47.0); HEMOGLOBIN 15.2 g/dl (12.0-15.5); LYMPH # 3.2 10^3/uL (1.5-5.0); LYMPH % 28.9 % (24.0-44.0); MEAN CORPUSCULAR HEMOGLOBIN 29.3 pg (27.0-33.0); MEAN CORPUSCULAR HGB CONC 32.4 g/dl (32.0-36.5); MEAN CORPUSCULAR VOLUME 90.4 fl (80.0-96.0); MONO # 0.6 10^3/uL (0.0-0.8); MONO % 5.6 % (2.0-8.0); NEUTROPHILS # 6.7 10^3/uL (1.5-8.5); PLATELET COUNT, AUTOMATED 499 10^3/uL (150-450); POTASSIUM SERUM 4.5 MMOL/L (3.5-5.1); RED BLOOD COUNT 5.19 10^6/uL (4.00-5.40); SODIUM LEVEL 141 MMOL/L (136-145)
[2022-09-25 20:07] LABS: VITAMIN D 1,25 DIHYDROXY 85.1 pg/mL (24.8-81.5)
== END ==
LOC: M PLALAB 08:32
PROVIDERS: ATTEND Orthopaedic Surgery
DX: M48.56XA Collapsed vertebra, not elsewhere classified, lumbar region, initial encounter for fracture (principal); M54.50 Low back pain, unspecified

== ENCOUNTER → 2022-09-21 | Outpatient (CLI) | payer MEDICARE ==
[2022-09-21 10:44] LABS: ALBUMIN 3.1 G/DL (3.2-5.2); ALKALINE PHOSPHATASE 118 U/L (46-116); ALT/SGPT 12 U/L (7.0-40); AST/SGOT 12 U/L (<34); BILIRUBIN,TOTAL 0.3 MG/DL (0.3-1.2); BLOOD UREA NITROGEN 15 MG/DL (9-23); CALCIUM LEVEL 8.8 MG/DL (8.3-10.6); CARBON DIOXIDE LEVEL 30 MMOL/L (20-31); CHLORIDE LEVEL 107 MMOL/L (98-107); CHOLESTEROL LEVEL 181 MG/DL (<200); CHOLESTEROL RISK RATIO 3.35 (<5); CREATININE FOR GFR 0.81 MG/DL (0.55-1.30); GLOMERULAR FILTRATION RATE > 60.0 (>45); GLUCOSE, FASTING 96 MG/DL (74-106); HEMATOCRIT 46.9 % (36.0-47.0); HEMOGLOBIN 15.3 g/dl (12.0-15.5); LDL CHOLESTEROL 100.4 MG/DL (<100); MEAN CORPUSCULAR HEMOGLOBIN 29.6 pg (27.0-33.0); MEAN CORPUSCULAR HGB CONC 32.6 g/dl (32.0-36.5); MEAN CORPUSCULAR VOLUME 90.7 fl (80.0-96.0); PLATELET COUNT, AUTOMATED 493 10^3/uL (150-450); POTASSIUM SERUM 4.9 MMOL/L (3.5-5.1); RED BLOOD COUNT 5.17 10^6/uL (4.00-5.40); SODIUM LEVEL 142 MMOL/L (136-145); TOTAL PROTEIN 6.2 G/DL (5.7-8.2); TRIGLYCERIDES LEVEL 133 MG/DL (<150); WHITE BLOOD COUNT 10.4 10^3/uL (4.0-10.0)
== END ==
LOC: M PLALAB 08:34
PROVIDERS: ATTEND Physician Assistant
DX: I25.10 Atherosclerotic heart disease of native coronary artery without angina pectoris (principal); E78.00 Pure hypercholesterolemia, unspecified; I10 Essential (primary) hypertension; E55.9 Vitamin D deficiency, unspecified

== ENCOUNTER → 2022-10-10 | Outpatient (CLI) | payer MEDICARE | LOC: M RAD 12:46 | PROVIDERS: ATTEND Physician Assistant | DX: I73.9 Peripheral vascular disease, unspecified (principal) ==

== ENCOUNTER → 2022-10-30 | Outpatient (CLI) | payer MEDICARE | LOC: M SOG 14:03 | PROVIDERS: ATTEND Orthopaedic Surgery | DX: M48.56XA Collapsed vertebra, not elsewhere classified, lumbar region, initial encounter for fracture (principal); M54.50 Low back pain, unspecified ==

== ENCOUNTER → 2023-03-20 | Outpatient (CLI) | payer MEDICARE ==
[2023-03-20 16:00] LABS: BLOOD UREA NITROGEN 13 MG/DL (9-23); CALCIUM LEVEL 9.1 MG/DL (8.3-10.6); CARBON DIOXIDE LEVEL 30 MMOL/L (20-31); CHLORIDE LEVEL 107 MMOL/L (98-107); CREATININE FOR GFR 0.69 MG/DL (0.55-1.30); GLOMERULAR FILTRATION RATE > 60.0 (>45); GLUCOSE, FASTING 83 MG/DL (74-106); POTASSIUM SERUM 4.5 MMOL/L (3.5-5.1); SODIUM LEVEL 142 MMOL/L (136-145)
[2023-03-20 16:07] LABS: BASO # 0.1 10^3/uL (0.0-0.2); BASO % 0.7 % (0.0-1.0); EOS # 0.2 10^3/uL (0.0-0.5); EOS % 1.8 % (0.0-3.0); HEMATOCRIT 46.8 % (36.0-47.0); HEMOGLOBIN 14.9 g/dl (12.0-15.5); LYMPH # 3.3 10^3/uL (1.5-5.0); LYMPH % 31.1 % (24.0-44.0); MEAN CORPUSCULAR HEMOGLOBIN 28.9 pg (27.0-33.0); MEAN CORPUSCULAR HGB CONC 31.8 g/dl (32.0-36.5); MEAN CORPUSCULAR VOLUME 90.9 fl (80.0-96.0); MONO # 0.6 10^3/uL (0.0-0.8); MONO % 5.4 % (2.0-8.0); NEUTROPHILS # 6.5 10^3/uL (1.5-8.5); NEUTROPHILS % 60.7 % (36.0-66.0); PLATELET COUNT, AUTOMATED 501 10^3/uL (150-450); RED BLOOD COUNT 5.15 10^6/uL (4.00-5.40); WHITE BLOOD COUNT 10.7 10^3/uL (4.0-10.0)
== END ==
LOC: M PLALAB 13:36
PROVIDERS: ATTEND Physician Assistant
DX: R06.02 Shortness of breath (principal)

== ENCOUNTER → 2023-05-31 | Outpatient (REF) | payer MEDICARE | LOC: M SFHCPLAZ 15:23 | PROVIDERS: ATTEND Internal Medicine Hematology | DX: R68.89 Other general symptoms and signs (principal) ==

== ENCOUNTER → 2023-06-11 | Outpatient (CLI) | payer MEDICARE | LOC: M RAD 12:52 | PROVIDERS: ATTEND Student in an Organized Health Care Education/Training Program | DX: Z12.2 Encounter for screening for malignant neoplasm of respiratory organs (principal); F17.210 Nicotine dependence, cigarettes, uncomplicated ==

== ENCOUNTER → 2023-08-07 | Outpatient (CLI) | payer MEDICARE | LOC: M PLAIMG 12:55 | PROVIDERS: ATTEND Student in an Organized Health Care Education/Training Program | DX: R09.82 Postnasal drip (principal) ==

== ENCOUNTER → 2023-09-26 | Outpatient (CLI) | payer MEDICARE ==
[2023-09-26 13:42] LABS: HEMATOCRIT 47.2 % (36.0-47.0); HEMOGLOBIN 14.9 g/dl (12.0-15.5); MEAN CORPUSCULAR HEMOGLOBIN 28.5 pg (27.0-33.0); MEAN CORPUSCULAR HGB CONC 31.6 g/dl (32.0-36.5); MEAN CORPUSCULAR VOLUME 90.2 fl (80.0-96.0); PLATELET COUNT, AUTOMATED 465 10^3/uL (150-450); RED BLOOD COUNT 5.23 10^6/uL (4.00-5.40); WHITE BLOOD COUNT 10.2 10^3/uL (4.0-10.0)
[2023-09-26 13:56] LABS: HEMOGLOBIN A1c 5.6 % (4.0-6.0)
[2023-09-26 14:09] LABS: ALBUMIN 3.3 G/DL (3.2-5.2); ALKALINE PHOSPHATASE 140 U/L (46-116); ALT/SGPT 13 U/L (7.0-40); AST/SGOT 9 U/L (<34); BILIRUBIN,TOTAL 0.3 MG/DL (0.3-1.2); BLOOD UREA NITROGEN 22 MG/DL (9-23); CALCIUM LEVEL 8.9 MG/DL (8.3-10.6); CARBON DIOXIDE LEVEL 32 MMOL/L (20-31); CHLORIDE LEVEL 103 MMOL/L (98-107); CHOLESTEROL LEVEL 197 MG/DL (<200); CHOLESTEROL RISK RATIO 3.37 (<5); CREATININE FOR GFR 0.84 MG/DL (0.55-1.30); FOLATE 6.1 NG/ML (>5.4); GLOMERULAR FILTRATION RATE > 60.0 (>39); GLUCOSE, FASTING 95 MG/DL (74-106); HDL CHOLESTEROL 58.4 MG/DL (>40); NON-HDL-C 138.6 MG/DL; POTASSIUM SERUM 4.6 MMOL/L (3.5-5.1); SODIUM LEVEL 140 MMOL/L (136-145); TOTAL 25(OH) VITAMIN D 53.5 NG/ML (20.0-100.0); TOTAL PROTEIN 6.4 G/DL (5.7-8.2); TRIGLYCERIDES LEVEL 108 MG/DL (<150)
[2023-09-26 14:10] LABS: VITAMIN B12 LEVEL 227 PG/ML (211-911)
== END ==
LOC: M PLALAB 08:52
PROVIDERS: ATTEND Family Medicine
DX: K21.9 Gastro-esophageal reflux disease without esophagitis (principal); G57.92 Unspecified mononeuropathy of left lower limb; I25.10 Atherosclerotic heart disease of native coronary artery without angina pectoris; R73.02 Impaired glucose tolerance (oral); E55.9 Vitamin D deficiency, unspecified

== ENCOUNTER → 2023-11-14 | Outpatient (CLI) | payer MEDICARE | LOC: M RAD 13:58 | PROVIDERS: ATTEND Internal Medicine Pulmonary Disease | DX: R91.8 Other nonspecific abnormal finding of lung field (principal) ==

== ENCOUNTER → 2024-06-10 | Outpatient (CLI) | payer MEDICARE ==
[~2024-06-10] MED LIST changes: +GABA-1172; -GABA-282
== END ==
LOC: M PLAIMG 09:34
PROVIDERS: ATTEND Internal Medicine Pulmonary Disease
DX: R91.8 Other nonspecific abnormal finding of lung field (principal)

== ENCOUNTER 2024-09-02 13:07 | Day surgery (SDC) | payer MEDICARE ==
[~2024-09-02] VITALS: Ht 157.5 cm; Wt 68.0 kg
[~2024-09-02 13:07] MED LIST changes: +ALBU8.5H; -EZET10TA21; +EZET10TA21 PO; +GUAI1SOL2 PO; +JARD1TAB PO; +PANT20TA6 PO; +VITA100093 PO; -ZOLP5TAB; +ZOLP5TAB PO
[2024-09-02] MEDS ORDERED: propofoL 200 MG/20 ML VIAL As Ordered ONE (14:59)
[2024-09-02] MEDS ORDERED: LIDOCAINE 2% 100MG/5ML SDV (FOR ANES.) As Ordered ONE (14:59)
[2024-09-02] MEDS ORDERED: SIMETHICONE 40MG/0.6ML DROPS 30ML As Ordered ONE (15:02)
[2024-09-02 15:19] VITALS: TEMP 97.1
[2024-09-02 15:40] VITALS: BP 120/73; O2SAT 93
== END 2024-09-02 15:43 | disposition home or self-care (01) ==
LOC: M OPP 13:07
PROVIDERS: ATTEND Internal Medicine Gastroenterology
DX: K22.2 Esophageal obstruction (principal); K29.60 Other gastritis without bleeding; K44.9 Diaphragmatic hernia without obstruction or gangrene; R05.3 Chronic cough; Z86.73 Personal history of transient ischemic attack (TIA), and cerebral infarction without residual deficits; Z95.5 Presence of coronary angioplasty implant and graft; Z79.82 Long term (current) use of aspirin; Z79.891 Long term (current) use of opiate analgesic; Z79.84 Long term (current) use of oral hypoglycemic drugs; Z79.899 Other long term (current) drug therapy; J44.9 Chronic obstructive pulmonary disease, unspecified; F17.210 Nicotine dependence, cigarettes, uncomplicated

== ENCOUNTER → 2024-09-16 | Outpatient (CLI) | payer MEDICARE | LOC: M SOG 07:56 | PROVIDERS: ATTEND Orthopaedic Surgery | DX: M54.50 Low back pain, unspecified (principal) ==

== ENCOUNTER → 2024-09-26 | Outpatient (CLI) | payer MEDICARE | LOC: M RAD 12:38 | PROVIDERS: ATTEND Orthopaedic Surgery | DX: M48.56XA Collapsed vertebra, not elsewhere classified, lumbar region, initial encounter for fracture (principal); M47.816 Spondylosis without myelopathy or radiculopathy, lumbar region; M48.061 Spinal stenosis, lumbar region without neurogenic claudication; M51.26 Other intervertebral disc displacement, lumbar region ==

== ENCOUNTER → 2024-12-05 | Outpatient (CLI) | payer MEDICARE | LOC: M WHC 15:49 | DX: M81.0 Age-related osteoporosis without current pathological fracture (principal) ==

== ENCOUNTER → 2024-12-18 | Outpatient (CLI) | payer MEDICARE | LOC: M WHC 13:11 | DX: Z13.820 Encounter for screening for osteoporosis (principal); M81.0 Age-related osteoporosis without current pathological fracture; M85.88 Other specified disorders of bone density and structure, other site; M85.851 Other specified disorders of bone density and structure, right thigh; M85.852 Other specified disorders of bone density and structure, left thigh ==

== ENCOUNTER → 2025-01-01 | Outpatient (CLI) | payer MEDICARE | LOC: M SLEEP HO 10:27 | PROVIDERS: ATTEND Internal Medicine Pulmonary Disease | DX: R51.9 Headache, unspecified (principal); G47.33 Obstructive sleep apnea (adult) (pediatric) ==

== ENCOUNTER → 2025-03-19 | Outpatient (CLI) | payer MEDICARE ==
[~2025-03-19] MED LIST changes: -EZET10TA21 PO; +EZET10TA57 PO; -ZOLP5TAB PO; +ZOLP5TAB9 PO
== END ==
LOC: M SLEEP 20:00
PROVIDERS: ATTEND Internal Medicine Pulmonary Disease
DX: G47.33 Obstructive sleep apnea (adult) (pediatric) (principal)

== ENCOUNTER → 2025-05-06 | Outpatient (CLI) | payer MEDICARE | LOC: M WHC 15:59 | PROVIDERS: ATTEND Family Medicine | DX: Z12.31 Encounter for screening mammogram for malignant neoplasm of breast (principal); F17.200 Nicotine dependence, unspecified, uncomplicated; Z53.9 Procedure and treatment not carried out, unspecified reason ==